=== PATIENT | female | born 1950 | race Caucasian/White ===

== ENCOUNTER 2020-01-10 14:50 | Outpatient (CLI) | payer MEDICARE, BC, SELFPAY ==
[2020-01-10 15:46] LABS: Alanine Aminotransferase 18 U/L (4-35); Albumin Level 3.9 g/dL (3.5-5.1); Alkaline Phosphatase 139 U/L (38-126); Aspartate Amino Transferase 32 U/L (14-36); Bilirubin,Total 0.8 mg/dL (0.2-1.3); Blood Urea Nitrogen 11 mg/dL (7-17); Calcium 9.1 mg/dL (8.4-10.2); Carbon Dioxide > 40 mmol/L (22-30); Chloride 86 mmol/L (98-107); Cholesterol 204 mg/dL (0-200); Estimated Glomerular Filt Rate > 60; Glucose 97 mg/dL (65-105); HDL Direct 101 mg/dL; LDL Cholesterol Direct 85 mg/dL; Potassium 3.8 mmol/L (3.4-5.0); Sodium 131 mmol/L (137-145); Triglycerides 97 mg/dL (<150)
== END 2020-01-10 14:51 | disposition home or self-care (01) ==
PROVIDERS: PCP Family Medicine; Visit Provider Family Medicine
DX: E78.00 Pure hypercholesterolemia, unspecified (principal)
CPT/HCPCS: 36415; 80053; 80061

== ENCOUNTER 2022-06-15 12:28 | Outpatient (CLI) | payer MEDICARE, BC, SELFPAY ==
[2022-06-15] VITALS (9 sets, daily range): PULSE 91–138; O2SAT 83–91
--- NOTE | 2022-06-15 13:26 | HOMEO2EVAL ---
Evaluation was performed at [facility] Home Oxygen Evaluation RC: Home Oxygen (O2) Evaluation Start: 06/15/22 13:19 Freq: Status: Active Protocol: RPE Activity Type Activity Date Activity User E-sign Co-sign Detail Recorded Client Recorded Date Recorded By Document 06/15/22 12:35 [email or web address] [email or web address] 06/15/22 13:26 DJO Document 06/15/22 12:40 [email or web address] [email or web address] 06/15/22 13:26 DJO Document 06/15/22 12:45 [email or web address] [email or web address] 06/15/22 13:26 DJO Document 06/15/22 12:50 [email or web address] [email or web address] 06/15/22 13:26 DJO Document 06/15/22 12:55 [email or web address] [email or web address] 06/15/22 13:26 DJO Document 06/15/22 13:00 [email or web address] [email or web address] 06/15/22 13:26 DJO Document 06/15/22 13:05 [email or web address] [email or web address] 06/15/22 13:26 DJO Document 06/15/22 13:10 [email or web address] [email or web address] 06/15/22 13:26 DJO Document 06/15/22 13:25 [email or web address] [email or web address] 06/15/22 13:26 DJO 06/15/22 06/15/22 06/15/22 12:35 12:40 12:45 Home O2 Evaluation [Oxygen] -Test Phase Resting Resting Resting -Oxygen Delivery Room Air Nasal Cannula Nasal Cannula -Oxygen Flow Rate (L/min) 1 2 [Pulse Oximetry] -Pulse Oximetry (90-100 %) 86 L 88 L 90 [Pulse Rate] -Pulse Rate (60-100 beats/min) 95 92 91 [Evaluation] -Activity Tolerance [Charges] -Treatment Charges O2 Evaluation - Outpatient 06/15/22 06/15/22 06/15/22 12:50 12:55 13:00 Home O2 Evaluation [Oxygen] -Test Phase Exercise Exercise Exercise -Oxygen Delivery Nasal Cannula Nasal Cannula Nasal Cannula -Oxygen Flow Rate (L/min) 2 3 4 [Pulse Oximetry] -Pulse Oximetry (90-100 %) 83 L 84 L 86 L [Pulse Rate] -Pulse Rate (60-100 beats/min) 128 H 132 H 134 H [Evaluation] -Activity Tolerance [Charges] -Treatment Charges 06/15/22 06/15/22 06/15/22 13:05 13:10 13:25 Home O2 Evaluation [Oxygen] -Test Phase Exercise Exercise Resting -Oxygen Delivery Nasal Cannula Nasal Cannula Nasal Cannula -Oxygen Flow Rate (L/min) 5 6 2 [Pulse Oximetry] -Pulse Oximetry (90-100 %) 88 L 91 90 [Pulse Rate] -Pulse Rate (60-100 beats/min) 136 H 138 H 98 [Evaluation] -Activity Tolerance Fair [Charges] -Treatment Charges
== END 2022-06-15 12:29 | disposition home or self-care (01) ==
LOC: ANHPFT 12:29
PROVIDERS: PCP Internal Medicine; Visit Provider Physician Assistant
DX: J96.11 Chronic respiratory failure with hypoxia (principal); J96.12 Chronic respiratory failure with hypercapnia
CPT/HCPCS: 94618

== ENCOUNTER 2023-08-14 09:15 | Inpatient (IN) | payer MEDICARE, BC, SELFPAY ==
[2023-08-14] VITALS (27 sets, daily range): BP systolic 91–121; BP diastolic 44–77; PULSE 73–101; RESP 17–29; TEMP 36.3–36.4; O2SAT 75–100
--- NOTE | ~2023-08-14 | XR_ITS ---
Portable chest x-ray Comparison: 08/14/2023 Clinical History: COPD Findings: Probable left apical scarring and underlying COPD pattern of the lungs are stable from dylan or exam. Cardiomediastinal silhouette is stable. Bones and soft tissues are unremarkable. Impression: COPD and presumed left apical scarring. Reviewed, dictated and finalized at [facility]. [employer] Impression: COPD and presumed left apical scarring.
--- NOTE | ~2023-08-14 | CT_ITS ---
EXAMINATION: CTA chest PE protocol DATE: 08/15/2023 13:49 INDICATION: Shortness of breath TECHNIQUE: Computed tomography angiography (CTA) of the chest was performed with 100 mL Omnipaque-350 intravenous contrast timed to evaluate the pulmonary arteries. Coronal maximum intensity projection 3D-reconstructions were created by the technologist. The dose-length product (DLP) was 153.28 mGy-cm. Automated exposure control and iterative reconstruction technique were employed. COMPARISON: 01/24/2018 FINDINGS: The pulmonary arteries are well-opacified. No pulmonary embolism is identified. There is se magdaleno emphysema. There is scarring and architectural distortion in the left lung apex, likely related to treated malignancy. No pleural effusion or pneumothorax. The heart size is normal. There is chroni c mild mediastinal lymphadenopathy. There is severe thoracic spondylosis. There are multiple chronic thoracic compression fractures. IMPRESSION: 1. No pulmonary embolus identified. 2. Severe emphysema with left upper lobe changes most consistent with treated malignancy. Reviewed, dictated and finalized at location L. CHOOL ADVISER IMPRESSION: 1. No pulmonary embolus identified. 2. Severe emphysema with left upper lobe changes most consistent with treated m alignancy.
--- NOTE | ~2023-08-14 | XR_ITS ---
EXAMINATION: XR chest 1V portable INDICATION: Altered mental status TECHNIQUE: Portable AP chest at 1041 hours COMPARISON: 08/08/2015; CT, 01/24/2018 FINDINGS: The lungs are hyperinflated. There is an airspace opacity of the left lung apex. No pleural effusion or pneumothorax identified. The cardiomediastinal silhouette is stable. IMPRESSION: 1. Airspace opacity of the left lung apex likely reflecting scarring related to a prior left upper lo be cavitary lesion. Reviewed, dictated and finalized at location B. CTOR OF ACCOUNTING IMPRESSION: 1. Airspace opacity of the left lung apex likely reflecting scarring related to a prior left upper lobe cavitary lesion.
--- NOTE | ~2023-08-14 | US_ITS ---
EXAMINATION: US venous doppler [facility] DATE: 08/15/2023 14:52 INDICATION: Respiratory abnormality, unspecified TECHNIQUE: Abdi scale images without and with compression and Doppler images of the bilateral lower e xtremity veins were obtained. COMPARISON: None FINDINGS: The right common femoral vein, profunda femoral vein, femoral vein, popliteal vein, peroneal trunk, p osterior tibial veins, and greater saphenous vein are patent. The left common femoral vein, profunda femoral vein, femoral vein, popliteal vein, peroneal trunk, po sterior tibial veins, and greater saphenous vein are patent. IMPRESSION: 1. Patent bilateral lower extremity veins. No evidence of deep venous thrombosis. Reviewed, dictated and finalized at location L. EXPORT AGENT IMPRESSION: 1. Patent bilateral lower extremity veins. No evidence of deep venous thrombosi s.
--- NOTE | ~2023-08-14 | US_ITS ---
EXAMINATION: US venous doppler E DATE: 08/15/2023 14:52 INDICATION: Respiratory failure with hypoxia and hypercapnia TECHNIQUE: Grayscale images without and with compression and Doppler images of the bilateral upper ex tremity veins were obtained. COMPARISON: None. FINDINGS: The right internal jugular vein, subclavian vein, axillary vein, brachial vein, basilic vein, cephali c vein, radial vein, and ulnar vein are patent. The left internal jugular vein, subclavian vein, axillary vein, brachial vein, basilic vein, cephalic vein, radial vein, and ulnar vein are patent. IMPRESSION: 1. Patent bilateral upper extremity veins. No evidence of venous thrombosis. Reviewed, dictated and finalized at location A. RONMENTAL SERVICES PROJECT MANAGER
--- NOTE | 2023-08-14 09:25 | ECG_ITS ---
Measurements Intervals [place] Rate: 73 P: 70 DC: 130 QRS: 74 QRSD: 96 T: 66 QT: 376 QTc: 415 Interpretive Statements SINUS RHYTHM BASELINE ARTIFACT NORMAL ECG NO PREVIOUS ECG AVAILABLE FOR COMPARISON Electronically Signed On 08-14-2023 18:27:26 NEWSPAPER DELIVERER by Axel Zee M.D.
[2023-08-14 09:41] LABS: Alveolar/Arterial O2 Gradient < 0.0 mmHg; Base Excess ABG 27.3 mEq/l (+/-2.0); Fractional Inspired Oxygen 36 %; HCO3 ABG 60.3 mEq/l (22.0-26.0); Oxygen Content ABG 14.3 %vol (16.0-22.0); Oxygen Saturation ABG 94.7 % (95.0-100.0); Oxyhemoglobin 95.3 % THb (90.0-100.0); PO2 ABG 93.7 mmHg (80.0-100.0); Total Hemoglobin 10.6 g/dL (12.0-18.0)
[2023-08-14 09:44] LABS: Device NASAL CANNULA; Modified Allen's Test Pass; PCO2 ABG 141.4 mmHg (35.0-45.0); Site Drawn RIGHT RADIAL; pH ABG 7.248 (7.350-7.450)
[2023-08-14 09:47] LABS: Basophils Percent Auto 0.2 % (0.2-1.2); Eosinophils Absolute Auto 0.1 K/mm3 (0-0.3); Eosinophils Percent Auto 2.1 % (0-4.4); Hematocrit 33.7 % (37.0-47.0); Hemoglobin 9.6 g/dL (12.0-15.0); Immature Granulocyte Absolute 0.01 K/mm3 (0.00-0.031); Immature Granulocyte Percent A 0.2 % (0-0.5); Immature Platelet Fraction Pct 6.6 % (0.9-11.2); Lymphocytes Absolute Auto 1.16 K/mm3 (0.9-3.2); Lymphocytes Percent Auto 22.6 % (18.3-44.2); Mean Corpuscular HGB Conc 28.5 g/dl (32-36); Mean Corpuscular Hemoglobin 32.1 pg (26-34); Mean Corpuscular Volume 112.7 fl (80-100); Mean Platelet Volume 10.8 fl (7.4-10.4); Monocytes Absolute Auto 0.7 K/mm3 (0.1-0.6); Monocytes Percent Auto 14.2 % (2.6-8.5); Neutrophils Absolute Auto 3.1 K/mm3 (1.3-6.7); Neutrophils Percent Auto 60.7 % (45.5-73.1); Platelet Count Result 143 k/mm3 (150-375); Red Blood Count 2.99 M/mm3 (4.2-5.4); Red Cell Distribution Width 11.9 % (11.5-14.5); White Blood Count 5.1 K/mm3 (4.5-10.0)
[2023-08-14 09:51] LABS: INR 0.9; Prothrombin Time 12.3 Seconds (11.1-14.7)
[2023-08-14 09:52] LABS: Alanine Aminotransferase 14 U/L (6-35); Albumin Level 4.1 g/dL (3.5-5.1); Alkaline Phosphatase 57 U/L (38-126); Aspartate Amino Transferase 29 U/L (14-36); Bilirubin,Total 0.6 mg/dL (0.2-1.3); Blood Urea Nitrogen 20 mg/dL (7-17); Calcium 9.2 mg/dL (8.4-10.2); Carbon Dioxide > 40 mmol/L (22-30); Chloride 82 mmol/L (98-107); Estimated CRCL calculation 59 ml/min; Estimated Glomerular Filt Rate > 60; Glucose 150 mg/dL (65-110); Partial Thromboplastin Time 32.6 SECONDS (22.3-36.8); Potassium 4.1 mmol/L (3.4-5.0); Sodium 136 mmol/L (137-145)
[2023-08-14 10:06] LABS: Anisocytosis 1+ (NORMAL); Hypochromasia 2+ (NORMAL); Platelet Estimate Adequate (Adequate); Schistocytes None Seen (NORMAL); Stomatocytes 1+ (NORMAL)
[2023-08-14] MEDS: ALBUTEROL SULFATE NEB 2.5 MG/3 ML INH INHALATION (10:17)
[2023-08-14 11:27] LABS: Alveolar/Arterial O2 Gradient 99.4 mmHg; Base Excess ABG 30.1 mEq/l (+/-2.0); Carboxyhemoglobin 1.1 % THb (0-2.0); Fractional Inspired Oxygen 45 %; HCO3 ABG 62.6 mEq/l (22.0-26.0); Methemoglobin ABG 0.2 %THb (0-1.5); Oxygen Content ABG 13.7 %vol (16.0-22.0); Oxygen Saturation ABG 90.4 % (95.0-100.0); Oxyhemoglobin 91.4 % THb (90.0-100.0); PO2 ABG 71.8 mmHg (80.0-100.0); Reduced Hemoglobin 7.3 %THb (0-5.0); Total Hemoglobin 10.6 g/dL (12.0-18.0)
[2023-08-14 11:28] LABS: Modified Allen's Test Pass; PCO2 ABG 131.6 mmHg (35.0-45.0); Site Drawn RIGHT RADIAL; pH ABG 7.295 (7.350-7.450)
[2023-08-14 11:29] LABS: Device BIPAP; Expiratory Pressure 6 cmH2O; Inspiratory Pressure 16 cmH2O
--- NOTE | 2023-08-14 11:45 | ED.GENADULT ---
HPI - General Adult General Chief complaint: Altered Mental Status Stated complaint: ams Time Seen by Provider: 08/14/23 09:45 History of Present Illness HPI narrative: Patient is a 73-year-old female who presents ER after collapse at home. Patient sleeps with a trilogy BiPAP. reports she was acting a little flaky last night before the BiPAP was put on and then she did much better. A 5:00 a.m. she had no 2 satting 98%. At 8:00 a.m. she had an O2 saturation in the mid 70s. Patient then went to the bathroom and became unresponsive. EMS arrived and bagged her and then patient woke up. She is awake alert and oriented at this time. She is receiving supplemental oxygen by nasal cannula. She denies any runny nose or sore throat or productive cough. reports she has not been hospitalized since 2016. Related Data Home Medications Medication Instructions Recorded Confirmed tiotropium bromide 2.5 2 inhalation inhalation QAM 09/30/19 08/14/23 mcg/actuation mist for inhalation (Spiriva Respimat) diltiazem HCl 180 mg capsule,24 60 mg PO TID 04/10/20 08/14/23 hr,extended release escitalopram oxalate 10 mg tablet 10 mg PO DAILY 04/10/20 08/14/23 furosemide 20 mg tablet 20 mg PO QAM 04/10/20 08/14/23 spironolactone 25 mg tablet 25 mg PO DAILY 04/10/20 08/14/23 Klonopin PO BID PRN Anxiety 08/14/23 alendronate 70 mg tablet 70 mg PO 08/14/23 budesonide 0.25 mg/2 mL suspension 0.25 mg BID 08/14/23 08/14/23 for nebulization Allergies Allergy/AdvReac Type Severity Reaction Status Date / Time No Known Allergies Allergy Unverified 08/14/23 09:31 Review of Systems Review of Systems: All systems reviewed & are unremarkable except as noted in HPI and below Constitutional: Constitutional: Reports no additional constitutional complaints ENT: Reports system reviewed and no additional complaints, except as documented Cardiovascular: Cardiovascular: Reports no additional cardiovascular complaints Respiratory: Respiratory: Denies cough, Reports dyspnea and Denies wheezing Gastrointestinal: Gastrointestinal: Reports no additional gastrointestinal complaints Genitourinary: Genitourinary: Reports no additional female genitourinary complaints Neurologic: Denies syncope, Denies focal weakness and Denies numbness PMFSH Past Medical History Medical History (Updated 08/14/23 @ 19:04 by German Barboza MD) Anxiety COPD (chronic obstructive pulmonary disease) Multiple nodules of lung Pulmonary hypertension Respiratory failure Family History Family History Sibling Family history of malignant neoplasm Carcinoma of colon Social History Social History Smoking packs per day: 2 Smoking cigarettes per day: 40.0 Years smoked: 30 Smoking pack-years: 60.00 Smoking status: Former smoker Tobacco type: cigarettes Smoking end date: 04/11/12 Alcohol intake: never Substance use: never Do You Feel Safe in your Home?: Yes Lack of Transportation: No Lack of Food: Never True Current Housing: I Have Housing Concerned About Future Housing: No Difficulty Paying Gas/Electric Bills: No Difficulty Paying for Meds: No Currently Unemployed: No Education: High School Diploma/GED Difficulty w/ Childcare or Family Care: No Spiritual care concerns: No Exam Narrative: general: Chronically ill-appearing, well-nourished, and in no acute distress. HEAD: Normocephalic, atraumatic. ENT: Mucous membranes moist. NECK: Supple. CHEST: diminished with faint wheezing. mild respiratory distress. HEART: Regular rate and rhythm. Normal peripheral pulses. ABDOMEN: Soft, nontender, nondistended. EXTREMITIES: Normal range of motion. No edema. SKIN: Warm, dry, no rash. NEURO: Alert and oriented x3. PSYCH: Normal mood and affect. Course Course Emergency Course:
--- NOTE | 2023-08-14 15:07 | ADMGEN ---
This patient, Betsy Villa, was admitted to IMU Room 203-01. Patient/family oriented to hospital policies and general routines including ID bracelet, bed and alarms, visiting hours, pain management, procedures, bathroom and other care routines, personal items, smoking policy, room service/diet, and visiting hours. Information on how to activate the Rapid Response Team has been discussed. Patient/Family are encouraged to report perceived risks to care and to ask questions if they do not understand what they are told or what they should do.
[2023-08-14 15:24] LABS: Alveolar/Arterial O2 Gradient 115.4 mmHg; Carboxyhemoglobin 0.3 % THb (0-2.0); Fractional Inspired Oxygen 50 %; HCO3 ABG 60.3 mEq/l (22.0-26.0); Methemoglobin ABG 0.2 %THb (0-1.5); Oxygen Content ABG 14.5 %vol (16.0-22.0); Oxygen Saturation ABG 95.7 % (95.0-100.0); Oxyhemoglobin 95.7 % THb (90.0-100.0); PO2 ABG 97.2 mmHg (80.0-100.0); PO2 FiO2 Ratio Arterial Blood 1.94 %; Reduced Hemoglobin 3.8 %THb (0-5.0); Total Hemoglobin 10.7 g/dL (12.0-18.0)
[2023-08-14 15:25] LABS: Device BIPAP; Modified Allen's Test Pass; PCO2 ABG 127.9 mmHg (35.0-45.0); Site Drawn LEFT RADIAL; pH ABG 7.291 (7.350-7.450)
[2023-08-14 15:26] LABS: Expiratory Pressure 6 cmH2O; Inspiratory Pressure 16 cmH2O
--- NOTE | 2023-08-14 15:28 | PM.IMHP ---
H&P: HPI History of Present Illness Date/Time: 08/14/23 15:28 Chief Complaint: Syncope Narrative: Several years female past medical history of COPD, anxiety, pulmonary hypertension chronic respiratory failure on supplemental oxygen and trilogy at night presented to the ER after syncope. Hospital was on [place] noted the patient woke up this morning with the intraseptal sounds present, and when she went to use the bathroom she passed out on the EMS was called. Noted that she passed out at about 8:30 a.m.. Patient denies any fever, noted a mild cough but no chest pain no vomiting no abdominal pain no diarrhea no dysuria no focal symptoms. She uses 2 L of oxygen at baseline and trilogy at night. ER evaluation notable for compression is sewn 0.6, pulse rate 84, respiratory 21, blood pressure 109/55, chest x-ray no acute findings. Labs notable for hemoglobin 9.6, MCV 1 1 2, ABG was 7.29/131/71/62, patient was placed on BiPAP and DuoNeb treatment prior to admission. Review of Systems Review of Systems: All other systems reviewed and negative except as noted in HPI above [facility] Past Medical History Medical History (Updated 08/14/23 @ 15:47 by Jonathan Simmons MD) Anxiety COPD (chronic obstructive pulmonary disease) Multiple nodules of lung Pulmonary hypertension Respiratory failure Family History Family History Sibling Family history of malignant neoplasm Carcinoma of colon Social History Social History Smoking packs per day: 2 Smoking cigarettes per day: 40.0 Years smoked: 30 Smoking pack-years: 60.00 Smoking status: Former smoker Tobacco type: cigarettes Smoking end date: 04/11/12 Alcohol intake: never Substance use: never Do You Feel Safe in your Home?: Yes Lack of Transportation: No Lack of Food: Never True Current Housing: I Have Housing Concerned About Future Housing: No Difficulty Paying Gas/Electric Bills: No Difficulty Paying for Meds: No Currently Unemployed: No Education: High School Diploma/GED Difficulty w/ Childcare or Family Care: No Spiritual care concerns: No Meds Home Medications and Allergies Home Medications Medication Instructions Recorded Confirmed Type tiotropium bromide 2.5 2 inhalation inhalation QAM 09/30/19 08/14/23 History mcg/actuation mist for inhalation (Spiriva Respimat) diltiazem HCl 180 mg capsule,24 60 mg PO TID 04/10/20 08/14/23 History hr,extended release escitalopram oxalate 10 mg tablet 10 mg PO DAILY 04/10/20 08/14/23 History furosemide 20 mg tablet 20 mg PO QAM 04/10/20 08/14/23 History spironolactone 25 mg tablet 25 mg PO DAILY 04/10/20 08/14/23 History arformoterol 15 mcg/2 mL solution See Rx Instructions .Route 06/19/23 08/14/23 Rx for nebulization .COMPLEX #120 mL Klonopin PO BID PRN Anxiety 08/14/23 History alendronate 70 mg tablet 70 mg PO 08/14/23 History budesonide 0.25 mg/2 mL suspension 0.25 mg BID 08/14/23 08/14/23 History for nebulization Allergies Allergy/AdvReac Type Severity Reaction Status Date / Time No Known Allergies Allergy Unverified 08/14/23 09:31 Vital Signs Vital Signs - 24 hr 08/14/23 09:15 08/14/23 09:25 08/14/23 09:25 Temperature 97.6 F Pulse Rate 77 75 Respiratory Rate 17 Blood Pressure 116/53 L Pulse Oximetry 75 L 100 Oxygen Delivery Nasal Cannula Non-Rebreather Mask Oxygen Flow Rate 4 4 Fraction of Inspired Oxygen 08/14/23 09:31 08/14/23 10:16 08/14/23 10:17 Temperature Pulse Rate 74 73 78 Respiratory Rate 23 H 29 H 24 H Blood Pressure 114/61 105/54 L Pulse Oximetry 98 96 Oxygen Delivery Oxygen Flow Rate Fraction of Inspired Oxygen 08/14/23 10:00 08/14/23 11:41 08/14/23 11:01 Temperature Pulse Rate 78 80 77 Respiratory Rate 24 H 26 H 29 H Blood Pressure 103/45 L Pulse Oximetry 95 96 97
[2023-08-14] MEDS: IPRATROPIUM 0.5 MG/ALBUTEROL SULFATE 2.5 MG AMPUL.NEB 3 ML INHALATION ×2 (15:30→21:15)
--- NOTE | 2023-08-14 16:37 | PM.CNPUL ---
Assessment and Plan Assessment and plan (1) COPD exacerbation: Code(s): J44.1 - Chronic obstructive pulmonary disease with (acute) exacerbation Status: Acute Assessment and Plan: Gold grade 4 group E COPD Patient followed in the Pulmonary Clinic in last seen on 05/11/2023 patient with 84 pack year history tobacco use, quit 04/11/2012, FEV1 22% on 07/31/2015, ? DLCO remained moderately decreased when adjusted for alveolar volume, lung volumes were not performed, with severe panlobular emphysema on CT scan.? She was using 3 L with rest, 6 with exertion. She was wearing a noninvasive trilogy every night with sleep since 2017. AVAPS EA mode with respiratory rate is 20, tidal volume 420, EPAP minimum 5, EPAP maximum 15, pressure support minimum 8, pressure support maximum 15, maximum pressure 30, rise time 3, ramp length 20. She wears 5 L NC under the mask. She was using Brovana nebs b.i.d., Spiriva Handy haler q.day and levalbuterol once daily in the morning.? Budesonide was added back 06/29/2021.? Currently the patient presents with acute on chronic hypoxemic and hypercarbic respiratory failure with no evidence of an acute change in her shortness of breath, sputum volume, sputum color or her symptoms. She had acute deterioration when she ambulated to the bathroom and had hypoxemia leading to a syncopal episode which responded once EMS arrived and gave her Ambu bag ventilation. Currently the patient states she is breathing 90% back to her normal and has no wheezing. Plan: Agree with Solu-Medrol 40 Q 8 for now. Continue DuoNebs q.4 hours. I will discontinue the trilogy inhaler as she is on maximal doses of beta agonists, muscarinic antagonists and steroids with the Solu-Medrol and DuoNebs. She has no evidence of a bacterial infection and I agree with no antibiotics. I will send a COVID, RSV and influenza RT PCR study as well as a swab for respiratory pathogen panel to [facility]. Patient had desaturations turning over in bed and I will not attempt to obtain a CT scan of the chest currently. I will obtain a D-dimer in the morning. Echocardiogram has been ordered. I will check a chest x-ray in the morning. I spoke to the regarding patient's resuscitation wishes and the patient has discussed this with the and the patient would wish for CPR and defibrillation but would not wish for intubation. I discussed this level of care with the hospitalist who will initiate do not intubate orders. Discussed with Dr. Simmons, will follow with you. (2) Respiratory failure with hypoxia and hypercapnia: Code(s): J96.91 - Respiratory failure, unspecified with hypoxia; J96.92 - Respiratory failure, unspecified with hypercapnia Status: Acute Assessment and Plan: Patient has chronic hypercarbic and hypoxemic respiratory failure from her COPD and is currently on 3 L nasal cannula at rest and 5 L bleed in at night on her home noninvasive ventilator with AVAPS AE mode through [employer]. My last download from 01/25/2023 through 04/24/2023 through [employer].? Patient is on AVAPS AE mode.? Breath rate 20, tidal volume 420, minimal EPAP 5, maximal EPAP 15, minimal pressure support 8, maximal pressure support 15, inspiratory time 2nd, rise time 3, ramp length 20.? % of days with usage greater than or equal to 4 hours is 100%.? Average usage on days used is 9 hours and 34 minutes.? Weekly average ranges for respiratory rate is 20 to 21.? Tidal volume 413 to 428.? Minute ventilation 8.5-9.22.? EPAP pressure 5.6-6.3.? IPAP average 19.1 to 19.5.? Average leak 45-59.??I interpret this download as excellent compliance, adequate pressures and high leak. Patient's last blood gas on BiPAP rate of 20 pressures 16/6 and 50% had 7.29/128/97. The patient was having difficulty with BiPAP and I switched her to an AVAPS mode rate of 20, tidal volume 420, EPAP 6, minimal inspiratory pressure 7, maximal inspiratory pressure 25, inspiratory time 1.2 and rise of 5 which
[2023-08-14] MEDS: dilTIAZem HCL 60 MG TABLET PO (17:01)
[2023-08-14] MEDS: methylPREDNISolone SOD SUCC 40 MG VIAL IV PUSH ×2 (17:01→22:07)
[2023-08-14 18:31] LABS: Influenza A QL RT-PCR Negative (Negative); Influenza B QL RT-PCR Negative (Negative); RSV RNA, RT-PCR Negative (Negative); SARS-CoV-2 RNA PCR Negative (Negative)
[2023-08-14 19:12] LABS: Folic Acid > 20.0 ng/mL (2.76->20)
[2023-08-15] VITALS (32 sets, daily range): BP systolic 100–120; BP diastolic 44–74; PULSE 71–138; RESP 21–26; TEMP 36.3–36.6; O2SAT 91–99
--- NOTE | 2023-08-15 | ECHO_ITS ---
Patient Info Name: Betsy Villa Age: 73 years : 1950 Gender: Female Ht: 64 in Wt: 117 lbs BSA: 1.55 m2 HR: 81 bpm BP: 120 / 56 mmHg Heart Rhythm: Sinus Rhythm Technical Quality: Fair Exam Date: 08/15/2023 3:45 PM Exam Location: Echo Lab Patient Status: Inpatient Admit Date: 08/14/2023 Staff Ordering Physician: Jonathan Simmons MD [employer] Instructor: Frances Garibay RDCS Attending Provider: Kamar Cerna MD Exam Type: CA echo dop color flow w con Study Info Indications R55 - Syncope and collapse Complete two-dimensional, color flow and Doppler transthoracic echocardiogram is performed with contrast to opacify the left ventricle and to improve the deliniation of the left ventricle endocardial borders. Contrast/Agitated Saline Contrast/Ag. Saline: Definity Amount: 2.00 ml Administered By: Frances Garibay RDCS Existing IV Access: Yes IV Access Condition: patent with no signs of infiltration Summary 1. Left ventricular chamber dimension is normal. 2. Left ventricular systolic function is normal, estimated at 65-70%. 3. The left ventricular diastolic function is grade I diastolic dysfunction. 4. Right ventricular systolic function is normal. 5. No significant valvular disease. Left Ventricle Left ventricular chamber dimension is normal. Left ventricular systolic function is normal, estimated at 65-70%. There is no increased left ventricular wall thickness. The left ventricular diastolic function is grade I diastolic dysfunction. Right Ventricle Right ventricular chamber dimension is normal. Right ventricular systolic function is normal. Left Atria Left atrial chamber dimension is normal. Right Atria Right atrial chamber dimension is normal. Atrial Septum Intact interatrial septum visualized by color flow imaging. Aortic Valve The aortic valve is trileaflet. There is mild aortic valve sclerosis. There is no aortic valve stenosis. There is no aortic valve regurgitation. Pulmonic Valve The pulmonic valve is not well visualized. Mitral Valve There is trace mitral valve regurgitation. The mitral valve annulus is mildly calcified. Tricuspid Valve There is trace tricuspid valve regurgitation. Pericardium/Pleural There is no pericardial effusion. Inferior Vena Cava Normal inferior vena cava with <50% collapse upon inspiration consistent with elevated right atrial pressure, 8 mmHg. Aorta The aortic root size at the sinus of Valsalva is normal. Left Ventricular Outflow Tract Name Value Normal LVOT 2D LVOT Diameter 2.02 cm LVOT Doppler LVOT Peak Gradient 4 mmHg LVOT Mean Gradient 2 mmHg LVOT VTI 19.22 cm LVOT VTI/AV VTI Ratio 0.74 LVOT Stroke Volume 61.41 ml LVOT CO 4.85 l/min LVOT CI 3.14 L/min/m2 Pulmonic Valve Name Value Normal RVOT
[2023-08-15] MEDS: IPRATROPIUM 0.5 MG/ALBUTEROL SULFATE 2.5 MG AMPUL.NEB 3 ML INHALATION ×6 (00:25→20:06)
[2023-08-15 05:33] LABS: Hematocrit 32.9 % (37.0-47.0); Hemoglobin 9.8 g/dL (12.0-15.0); Immature Granulocyte Absolute 0.02 K/mm3 (0.00-0.031); Immature Granulocyte Percent A 0.3 % (0-0.5); Immature Platelet Fraction Pct 8.1 % (0.9-11.2); Lymphocytes Absolute Auto 0.17 K/mm3 (0.9-3.2); Lymphocytes Percent Auto 2.8 % (18.3-44.2); Mean Corpuscular HGB Conc 29.8 g/dl (32-36); Mean Corpuscular Hemoglobin 32.6 pg (26-34); Mean Corpuscular Volume 109.3 fl (80-100); Mean Platelet Volume 10.9 fl (7.4-10.4); Monocytes Percent Auto 0.5 % (2.6-8.5); Neutrophils Absolute Auto 5.8 K/mm3 (1.3-6.7); Neutrophils Percent Auto 96.4 % (45.5-73.1); Platelet Count Result 152 k/mm3 (150-375); Red Blood Count 3.01 M/mm3 (4.2-5.4); Red Cell Distribution Width 11.9 % (11.5-14.5); White Blood Count 6.1 K/mm3 (4.5-10.0)
[2023-08-15] MEDS: methylPREDNISolone SOD SUCC 40 MG VIAL IV PUSH (05:34)
[2023-08-15 05:47] LABS: Lactic Acid Reflex 1.6 mmol/L (0.7-2.0)
[2023-08-15 05:49] LABS: Alveolar/Arterial O2 Gradient 123.6 mmHg; Fractional Inspired Oxygen 45 %; HCO3 ABG 52.4 mEq/l (22.0-26.0); Oxygen Content ABG 14.3 %vol (16.0-22.0); Oxygen Saturation ABG 94.1 % (95.0-100.0); Oxyhemoglobin 94.3 % THb (90.0-100.0); PO2 ABG 81.1 mmHg (80.0-100.0); Total Hemoglobin 10.7 g/dL (12.0-18.0); pH ABG 7.328 (7.350-7.450)
[2023-08-15 05:51] LABS: PCO2 ABG 102.1 mmHg (35.0-45.0); Site Drawn RIGHT BRACHIAL
[2023-08-15 05:52] LABS: Device NON-INVASIVE VENT; Non-Invasive Vent Rate 20 /MIN
[2023-08-15 05:53] LABS: Non-Invasive Expiratory Pressure 6 CMH2O
[2023-08-15 05:58] LABS: Alanine Aminotransferase 15 U/L (6-35); Albumin Level 4.3 g/dL (3.5-5.1); Alkaline Phosphatase 72 U/L (38-126); Aspartate Amino Transferase 28 U/L (14-36); Bilirubin,Total 0.8 mg/dL (0.2-1.3); Blood Urea Nitrogen 19 mg/dL (7-17); Calcium 9.4 mg/dL (8.4-10.2); Carbon Dioxide > 40 mmol/L (22-30); Chloride 83 mmol/L (98-107); Estimated CRCL calculation 55 ml/min; Estimated Glomerular Filt Rate > 60; Glucose 174 mg/dL (65-110); Potassium 4.5 mmol/L (3.4-5.0); Sodium 136 mmol/L (137-145)
[2023-08-15 06:06] LABS: Hypochromasia 1+ (NORMAL); Platelet Estimate Adequate (Adequate); Schistocytes None Seen (NORMAL)
[2023-08-15 06:07] LABS: Stomatocytes 2+ (NORMAL)
[2023-08-15 06:12] LABS: D Dimer 0.66 ug/mL (<0.48)
[2023-08-15 08:08] LABS: NT Pro B Type Natriuretic Pept 195 pg/mL (19.9-100)
[2023-08-15] MEDS: ESCITALOPRAM OXALATE 10 MG TABLET PO (10:12)
[2023-08-15] MEDS: FUROSEMIDE 20 MG TABLET PO (10:12)
[2023-08-15] MEDS: dilTIAZem HCL 60 MG TABLET PO ×3 (10:12→17:25)
[2023-08-15] MEDS: ENOXAPARIN 40 MG/0.4 ML SYRINGE SUB-Q (10:12)
[2023-08-15] MEDS: SPIRONOLACTONE 25 MG TABLET PO (10:12)
--- NOTE | 2023-08-15 10:52 | PM.PNPUL ---
Progress Note: A&P Assessment and Plan (1) COPD exacerbation: Code(s): J44.1 - Chronic obstructive pulmonary disease with (acute) exacerbation Status: Acute Assessment and Plan: Gold grade 4 group E COPD Patient followed in the Pulmonary Clinic in last seen on 05/11/2023 patient with 84 pack year history tobacco use, quit 04/11/2012, FEV1 22% on 07/31/2015, ? DLCO remained moderately decreased when adjusted for alveolar volume, lung volumes were not performed, with severe panlobular emphysema on CT scan.? She was using 3 L with rest, 6 with exertion. She was wearing a noninvasive trilogy every night with sleep since 2017. AVAPS EA mode with respiratory rate is 20, tidal volume 420, EPAP minimum 5, EPAP maximum 15, pressure support minimum 8, pressure support maximum 15, maximum pressure 30, rise time 3, ramp length 20. She wears 5 L NC under the mask. She was using Brovana nebs b.i.d., Spiriva Handy haler q.day and levalbuterol once daily in the morning.? Budesonide was added back 06/29/2021.? Currently the patient presents with acute on chronic hypoxemic and hypercarbic respiratory failure with no evidence of an acute change in her shortness of breath, sputum volume, sputum color or her symptoms. She had acute deterioration when she ambulated to the bathroom and had hypoxemia leading to a syncopal episode which responded once EMS arrived and gave her Ambu bag ventilation. Currently the patient states she is breathing 90% back to her normal and has no wheezing. Plan: Agree with Solu-Medrol 40 Q 8 for now. Continue DuoNebs q.4 hours. I will discontinue the trilogy inhaler as she is on maximal doses of beta agonists, muscarinic antagonists and steroids with the Solu-Medrol and DuoNebs. She has no evidence of a bacterial infection and I agree with no antibiotics. I will send a COVID, RSV and influenza RT PCR study as well as a swab for respiratory pathogen panel to [facility]. Patient had desaturations turning over in bed and I will not attempt to obtain a CT scan of the chest currently. I will obtain a D-dimer in the morning. Echocardiogram has been ordered. I will check a chest x-ray in the morning. I spoke to the regarding patient's resuscitation wishes and the patient has discussed this with the and the patient would wish for CPR and defibrillation but would not wish for intubation. I discussed this level of care with the hospitalist who will initiate do not intubate orders. 08/15/23: She denied fever, chills, rigors. White blood cell count 6.1, creatinine 0.6, D-dimer 0.66 positive. Chest x-ray today shows hyperinflation with no pleural effusions. Left upper lobe scar. No change from 08/14/2023. Plan: Patient is improved. I will change her Solu-Medrol to prednisone 40 mg a day. I will continue DuoNebs q.4 hours. Noninvasive ventilation p.r.n. during the day. Nasal cannula with goal saturation 90-94%. I will perform CT angiogram of the chest to exclude PE, echocardiogram to assess LV function, RV function, valve function and pulmonary pressures. Upper and lower extremity Dopplers as her D dimer is positive. Discussed with Dr. Newell, will follow with you. (2) Respiratory failure with hypoxia and hypercapnia: Code(s): J96.91 - Respiratory failure, unspecified with hypoxia; J96.92 - Respiratory failure, unspecified with hypercapnia Status: Acute Assessment and Plan: Patient has chronic hypercarbic and hypoxemic respiratory failure from her COPD and is currently on 3 L nasal cannula at rest and 5 L bleed in at night on her home noninvasive ventilator with AVAPS AE mode through [employer]. My last download from 01/25/2023 through 04/24/2023 through [employer].? Patient is on AVAPS AE mode.? Breath rate 20, tidal volume 420, minimal EPAP 5, maximal EPAP 15, minimal pressure support 8, maximal pressure support 15, inspiratory time 2nd, rise time 3, ramp length 20.? % of days with usage greater than or equal to
[2023-08-15] MEDS: predniSONE 20 MG TABLET 40 MG PO (12:10)
[2023-08-15] MEDS: PERFLUTREN LIPID MICROSPHERES 1.5 ML VIAL DILUTED TO 10 ML TOTAL VOLUME IV PUSH (15:30)
--- NOTE | 2023-08-15 16:58 | IVDEFINITY ---
Prior to administration of IV Definity the patient was educated on the risks and benefits of the imaging enhancing agent including potential adverse side effects. The patient verbalized understanding. Allergies were verified. No exclusion criteria were identified and at least one of the following inclusion criteria were met: 1) physician request, 2) patient technically difficult to image (per the [place] [employer] guidelines of two or more segments not discernable within the apical view), or 3) questionable left ventricular function. ?
--- NOTE | 2023-08-15 17:07 | PM.IMPN ---
Progress Note: A&P Assessment and Plan (1) COPD exacerbation: Code(s): J44.1 - Chronic obstructive pulmonary disease with (acute) exacerbation Status: Acute Assessment and Plan: Patient presents with SOB and found to have acute respiratory failure. ABG showed acute on chronic respiratory acidosis with metabolic alkalosis. PCO2 141. CXR showing airspace opacity left lung apex CTA chest today no PE but showed severe emphysema with left upper lobe changes c/w treated malignancy. Treated with BIPAP, IV steroids, and bronchodilators Repeat ABG showing improvement Pulm consulted and appreciate their input (2) Acute and chronic respiratory failure with hypercapnia: Code(s): J96.22 - Acute and chronic respiratory failure with hypercapnia Status: Acute Assessment and Plan: Patient with acute on chronic resp failure. Most likely COPD exacerbation. CTA chest shownig no PE and only chronic findings so PNA less likely. Dopplers UE and LE negative for DVT BNP 195. Echo pending ABG better at 7.33/102/81. Patient at end stage resp failure. Discussed with pulmonary who felt hospice discussion was reasonable. Spoke with and he was receptive to hospice. Patient now DNR. He will speak with family about moving forward The patieint is unaware of this discussion at this time (3) Macrocytic anemia: Code(s): D53.9 - Nutritional anemia, unspecified Status: Acute Assessment and Plan: Hgb in the 9 range and stable. No baseline to compare. Macrocytic with MCV 112 B12/folate normal Monitor HH. Transfuse as needed (4) Syncope: Code(s): R55 - Syncope and collapse Status: Acute Assessment and Plan: Patient with syncopal episode likely related to respiratory failure given the severity of her ABG CTA chest negative for PE. Echo pending. PT/OT ordered monitor on tele (5) Multiple nodules of lung: Code(s): R91.8 - Other nonspecific abnormal finding of lung field Status: Acute Assessment and Plan: CTA chest showing AMINATA scarring but no mention of pulmonary nodules. Plan Code status - tele DVT prophylaxis - Lovenox Subjective Date/time seen: 08/15/23 17:07 Interval history: 73yo female with GOLD grade 4 group E COPD, anxiety, chronic respiratory failure and pulm HTN here for shortness of breath. Wore Bipap last night. Slept off and on. Feeling better. No CP and SOb improved. No n/v. Tolerating oral intake. Exam Narrative: AF 97.5 108/44 79 26 96% 3L Gen - this elderly female in NARD sitting up in bed Chest - distant BS anteriorly and in the flanks. CV - RRR S1/S2. Tele showing no significant dysrhythmias. Abd - Soft, NT/ND, Positive BS Ext - No pedal edema Psych - Nml mood and affect Skin - Warm and dry Objective Data Vital Signs Vital Signs: Vital Signs - 24 hr 08/14/23 17:56 08/14/23 18:00 08/14/23 20:00 Temperature 97.3 F L Pulse Rate 98 92 88 Respiratory Rate 24 H 23 H Blood Pressure 91/56 L Pulse Oximetry 94 97 Oxygen Delivery BiPAP Oxygen Flow Rate Fraction of Inspired Oxygen 08/14/23 21:15 08/14/23 21:15 08/14/23 21:30 Temperature Pulse Rate 95 95 95 Respiratory Rate 22 H 23 H 23 H Blood Pressure Pulse Oximetry 97 Oxygen Delivery BiPAP Oxygen Flow Rate Fraction of Inspired Oxygen 08/14/23 20:00 08/14/23 20:00 08/14/23 22:00 Temperature Pulse Rate 85 74 Respiratory Rate Blood Pressure Pulse Oximetry 98 Oxygen Delivery BiPAP Oxygen Flow Rate Fraction of Inspired Oxygen 45 08/14/23 23:47 08/15/23 00:00 08/15/23 00:00 Temperature 97.6 F Pulse Rate 99 104 H Respiratory Rate 23 H Blood Pressure 117/77 Pulse Oximetry 96 96 Oxygen Delivery BiPAP Oxygen Flow Rate Fraction of Inspired Oxygen 45 08/15/23 00:25 08/15/23 00:25 08/15/23 02:00 Temperature Pulse Rate 89 89 99 Respiratory Rate 2
[2023-08-15] MEDS: BUDESONIDE RESPULE NEB 0.5 MG/2 ML AMP INHALATION (20:06)
--- NOTE | 2023-08-15 20:30 | PC.NURSE ---
RT attempted to place pt on home Trilogy settings for apnea link. Pt desat to the 50s. Pt is currently on 15L HFNC satting 85%. Discussed with RT to place pt on bipap with current AVAPS settings and to forgo apnea link based on pt's intolerance.
[2023-08-16] VITALS (33 sets, daily range): BP systolic 101–128; BP diastolic 48–78; PULSE 76–103; RESP 18–26; TEMP 36.2–36.6; O2SAT 90–100
[2023-08-16] MEDS: IPRATROPIUM 0.5 MG/ALBUTEROL SULFATE 2.5 MG AMPUL.NEB 3 ML INHALATION ×6 (00:37→20:20)
[2023-08-16 04:43] LABS: Basophils Percent Auto 0.1 % (0.2-1.2); Hematocrit 31.6 % (37.0-47.0); Hemoglobin 9.4 g/dL (12.0-15.0); Immature Granulocyte Absolute 0.05 K/mm3 (0.00-0.031); Immature Granulocyte Percent A 0.5 % (0-0.5); Lymphocytes Absolute Auto 0.27 K/mm3 (0.9-3.2); Lymphocytes Percent Auto 2.8 % (18.3-44.2); Mean Corpuscular HGB Conc 29.7 g/dl (32-36); Mean Corpuscular Hemoglobin 32.9 pg (26-34); Mean Corpuscular Volume 110.5 fl (80-100); Mean Platelet Volume 10.7 fl (7.4-10.4); Monocytes Percent Auto 10.9 % (2.6-8.5); Neutrophils Absolute Auto 8.1 K/mm3 (1.3-6.7); Neutrophils Percent Auto 85.7 % (45.5-73.1); Platelet Count Result 153 k/mm3 (150-375); Red Blood Count 2.86 M/mm3 (4.2-5.4); White Blood Count 9.5 K/mm3 (4.5-10.0)
--- NOTE | 2023-08-16 04:53 | PC.NURSE ---
Dr. Reyna called IMU to check on pt's status overnight. Explained that pt was unable to tolerate home trilogy and was placed on AVAPS with same settings as yesterday. ABG has not been obtained yet this morning. Dr. Reyna states not to call critical lab results, that he will review them this morning. Discussed with RT: while pt was on home Trilogy, RT used a 5L bleed in. Pt unable to tolerate. Bleed in was titrated up to 15L. Pt was still unable to maintain her sats. At that time, she was placed on AVAPS mode per hospital bipap system.
[2023-08-16 05:00] LABS: Alanine Aminotransferase 17 U/L (6-35); Albumin Level 4.2 g/dL (3.5-5.1); Alkaline Phosphatase 61 U/L (38-126); Aspartate Amino Transferase 35 U/L (14-36); Bilirubin,Total 0.6 mg/dL (0.2-1.3); Blood Urea Nitrogen 25 mg/dL (7-17); Calcium 9.4 mg/dL (8.4-10.2); Carbon Dioxide > 40 mmol/L (22-30); Chloride 82 mmol/L (98-107); Estimated CRCL calculation 48 ml/min; Estimated Glomerular Filt Rate > 60; Glucose 121 mg/dL (65-110); Potassium 4.2 mmol/L (3.4-5.0); Sodium 136 mmol/L (137-145)
[2023-08-16 05:27] LABS: Alveolar/Arterial O2 Gradient 129.7 mmHg; Base Excess ABG 21.4 mEq/l (+/-2.0); Fractional Inspired Oxygen 40 %; HCO3 ABG 49.4 mEq/l (22.0-26.0); Oxygen Content ABG 13.5 %vol (16.0-22.0); Oxygen Saturation ABG 91.8 % (95.0-100.0); Oxyhemoglobin 91.7 % THb (90.0-100.0); PO2 FiO2 Ratio Arterial Blood 1.63 %; Total Hemoglobin 10.4 g/dL (12.0-18.0); pH ABG 7.416 (7.350-7.450)
[2023-08-16 05:29] LABS: Device BIPAP; Modified Allen's Test Pass; PCO2 ABG 78.7 mmHg (35.0-45.0); Site Drawn RIGHT RADIAL
[2023-08-16 05:30] LABS: Expiratory Pressure 6 cmH2O
[2023-08-16 05:45] LABS: Platelet Estimate Adequate (Adequate); Schistocytes None Seen (NORMAL); Stomatocytes 2+ (NORMAL)
[2023-08-16 05:46] LABS: Anisocytosis 1+ (NORMAL); Hypochromasia 2+ (NORMAL)
[2023-08-16] MEDS: BUDESONIDE RESPULE NEB 0.5 MG/2 ML AMP INHALATION ×2 (07:28→20:20)
--- NOTE | 2023-08-16 08:55 | PCOTNOTE ---
The patient treatment was not able to be completed. RN and MD in the room completing testing. RN reported not appropriate at this time. Will plan to continue treatment per plan of care.
[2023-08-16] MEDS: ESCITALOPRAM OXALATE 10 MG TABLET PO (09:33)
[2023-08-16] MEDS: predniSONE 20 MG TABLET 40 MG PO (09:33)
[2023-08-16] MEDS: FUROSEMIDE 20 MG TABLET PO (09:33)
[2023-08-16] MEDS: dilTIAZem HCL 60 MG TABLET PO ×3 (09:34→21:28)
[2023-08-16] MEDS: SPIRONOLACTONE 25 MG TABLET PO (09:34)
[2023-08-16] MEDS: ENOXAPARIN 40 MG/0.4 ML SYRINGE SUB-Q (09:35)
--- NOTE | 2023-08-16 10:04 | PM.PNPUL ---
Progress Note: A&P Assessment and Plan (1) COPD exacerbation: Code(s): J44.1 - Chronic obstructive pulmonary disease with (acute) exacerbation Status: Acute Assessment and Plan: Gold grade 4 group E COPD Patient followed in the Pulmonary Clinic in last seen on 05/11/2023 patient with 84 pack year history tobacco use, quit 04/11/2012, FEV1 22% on 07/31/2015, ? DLCO remained moderately decreased when adjusted for alveolar volume, lung volumes were not performed, with severe panlobular emphysema on CT scan.? She was using 3 L with rest, 6 with exertion. She was wearing a noninvasive trilogy every night with sleep since 2017. AVAPS EA mode with respiratory rate is 20, tidal volume 420, EPAP minimum 5, EPAP maximum 15, pressure support minimum 8, pressure support maximum 15, maximum pressure 30, rise time 3, ramp length 20. She wears 5 L NC under the mask. She was using Brovana nebs b.i.d., Spiriva Handy haler q.day and levalbuterol once daily in the morning.? Budesonide was added back 06/29/2021.? Currently the patient presents with acute on chronic hypoxemic and hypercarbic respiratory failure with no evidence of an acute change in her shortness of breath, sputum volume, sputum color or her symptoms. She had acute deterioration when she ambulated to the bathroom and had hypoxemia leading to a syncopal episode which responded once EMS arrived and gave her Ambu bag ventilation. Currently the patient states she is breathing 90% back to her normal and has no wheezing. Plan: Agree with Solu-Medrol 40 Q 8 for now. Continue DuoNebs q.4 hours. I will discontinue the trilogy inhaler as she is on maximal doses of beta agonists, muscarinic antagonists and steroids with the Solu-Medrol and DuoNebs. She has no evidence of a bacterial infection and I agree with no antibiotics. I will send a COVID, RSV and influenza RT PCR study as well as a swab for respiratory pathogen panel to [facility]. Patient had desaturations turning over in bed and I will not attempt to obtain a CT scan of the chest currently. I will obtain a D-dimer in the morning. Echocardiogram has been ordered. I will check a chest x-ray in the morning. I spoke to the regarding patient's resuscitation wishes and the patient has discussed this with the and the patient would wish for CPR and defibrillation but would not wish for intubation. I discussed this level of care with the hospitalist who will initiate do not intubate orders. 08/15/23: She denied fever, chills, rigors. White blood cell count 6.1, creatinine 0.6, D-dimer 0.66 positive. Chest x-ray today shows hyperinflation with no pleural effusions. Left upper lobe scar. No change from 08/14/2023. Plan: Patient is improved. I will change her Solu-Medrol to prednisone 40 mg a day. I will continue DuoNebs q.4 hours. Noninvasive ventilation p.r.n. during the day. Nasal cannula with goal saturation 90-94%. I will perform CT angiogram of the chest to exclude PE, echocardiogram to assess LV function, RV function, valve function and pulmonary pressures. Upper and lower extremity Dopplers as her D dimer is positive. Later in the day patient had a CT angiogram of the chest was negative for PE, severe panlobular emphysema all lung alvarez, left upper lobe mass. Upper and lower extremity Dopplers negative. 08/16/23: Patient was off BiPAP during the day yesterday. Overall the patient states that she is breathing at her baseline. Her cough and phlegm production or at her baseline. Her white blood cell count is 9.5, creatinine is 0.7. Plan: Continue prednisone 40 mg a day, day 3. Continue DuoNebs q.4 hours and continue budesonide 0.5 mg q.12 hours. Goal saturation 90-94%. Currently patient is on 3 L which is her home setting. I had a discussion with the and the daughter explaining to them that the patient is on noninvasive ventilation with a PaCO2 of 79 at the end of the night indicating severe gas exchange abnormality.
[2023-08-16] MEDS: ALPRAZolam (*CRX) 0.125 MG TABLET PO (10:57)
--- NOTE | 2023-08-16 11:42 | PM.IMPN ---
Progress Note: A&P Assessment and Plan (1) COPD exacerbation: Code(s): J44.1 - Chronic obstructive pulmonary disease with (acute) exacerbation Status: Acute Assessment and Plan: Patient presents with SOB and found to have acute respiratory failure. ABG showed acute on chronic respiratory acidosis with metabolic alkalosis. PCO2 141. CXR showing airspace opacity left lung apex CTA chest today no PE but showed severe emphysema with left upper lobe changes c/w treated malignancy. Treated with BIPAP, IV steroids, and bronchodilators Repeat ABG showing improvement On 08/16 she continues to show improvement. IV steroids transition to oral. Will get [facility] and home noninvasive ventilation testing tonight. Continue to appreciate pulmonology recs. (2) Acute and chronic respiratory failure with hypercapnia: Code(s): J96.22 - Acute and chronic respiratory failure with hypercapnia Status: Acute Assessment and Plan: Patient with acute on chronic resp failure. Most likely COPD exacerbation. CTA chest shownig no PE and only chronic findings so PNA less likely. Dopplers UE and LE negative for DVT BNP 195. Echo pending ABG better at 7.33/102/81. Patient at end stage resp failure. Discussed with pulmonary who felt hospice discussion was reasonable. Spoke with and he was receptive to hospice. Patient now DNR. He will speak with family about moving forward On 08/16. Patient is stable. Family not ready for her to enter hospice. Discussion remains on the table. (3) Macrocytic anemia: Code(s): D53.9 - Nutritional anemia, unspecified Status: Acute Assessment and Plan: Hgb in the 9 range and stable. No baseline to compare. Macrocytic with MCV 112 B12/folate normal Monitor HH. Transfuse as needed (4) Syncope: Code(s): R55 - Syncope and collapse Status: Acute Assessment and Plan: Patient with syncopal episode likely related to respiratory failure given the severity of her ABG CTA chest negative for PE. Echo pending. PT/OT ordered monitor on tele (5) Multiple nodules of lung: Code(s): R91.8 - Other nonspecific abnormal finding of lung field Status: Acute Assessment and Plan: CTA chest showing AMINATA scarring but no mention of pulmonary nodules. Pulmonology following. Plan 73-year-old female with history of end-stage COPD with chronic respiratory failure, anxiety, pulmonary hypertension. Presented with shortness of breath. Admitted on 08/14/2023 FEN: Saline lock IV. GI prophylaxis: Not indicated DVT prophylaxis: Lovenox Lines: Peripheral IV Code Status: DNR Dispo: Stable. Subjective Date/time seen: 08/16/23 11:42 Interval history: No acute overnight events. She currently denies any symptoms Exam Const: General: comfortable and no acute distress Other: A&O x3 Eyes: Pupils: Equal, round and reactive pupils present Neck: Neck: supple Resp: Effort & Inspection: normal respiratory effort Cardio: Rate: regular rate Rhythm: regular rhythm GI: GI Palp: Yes Soft to palpation and No Tenderness to palpation present (GI) Extrem: General: no edema Objective Data Vital Signs Vital Signs: Vital Signs - 24 hr 08/15/23 12:06 08/15/23 11:45 08/15/23 13:27 Temperature 97.8 F Pulse Rate 102 H 100 Respiratory Rate 22 H 22 H Blood Pressure 111/67 Pulse Oximetry 98 Oxygen Delivery Nasal Cannula Oxygen Flow Rate 6 Fraction of Inspired Oxygen 08/15/23 13:37 08/15/23 13:46 08/15/23 12:00 Temperature Pulse Rate 90 101 H Respiratory Rate 22 H Blood Pressure Pulse Oximetry 97 Oxygen Delivery Nasal Cannula Oxygen Flow Rate 3 Fraction of Inspired Oxygen 08/15/23 12:00 08/15/23 14:00 08/15/23 16:00 Temperature Pulse Rate 90 92 79 Respiratory Rate 22 H Blood Pressure Pulse Oximetry 97 Oxygen Delivery Nasal Cannula Oxygen Flow Ra
--- NOTE | 2023-08-16 14:25 | PCOTNOTE ---
Attempted to see Patient this afternoon. Patient's present and stated they have home health planned to be coming out once they return home. Patient's was explained that we are ordered for services while the Patient is in the hospital. Patient's stated he understood and that she had performed some therapy today and would rather OT services, hold off for today. Per RN, have Patient perform as wanted.
[2023-08-16] MEDS: PHARMACIST COMMUNICATION ORDER 1 EACH XX (19:44)
[2023-08-16] MEDS: ACETAMINOPHEN 325 MG TABLET 650 MG PO (20:48)
[2023-08-16 23:30] LABS: Adenovirus DNA Not Detected (Not Detected); Chlamydophila pneumoniae Not Detected (Not Detected); Coronavirus 229E Not Detected (Not Detected); Coronavirus HKU1 Not Detected (Not Detected); Coronavirus NL63 Not Detected (Not Detected); Coronavirus OC43 Not Detected (Not Detected); Human Metapneumovirus Not Detected (Not Detected); Human Parainfluenza Virus 1 Not Detected (Not Detected); Human Parainfluenza Virus 2 Not Detected (Not Detected); Human Parainfluenza Virus 3 Not Detected (Not Detected); Human Parainfluenza Virus 4 Not Detected (Not Detected); Human RSV B Not Detected (Not Detected); Influenza A Not Detected (Not Detected); Influenza B Not Detected (Not Detected); Mycoplasma pneumoniae Not Detected (Not Detected); Rhinovirus/Enterovirus Not Detected (Not Detected)
[2023-08-17] VITALS (18 sets, daily range): BP systolic 99–135; BP diastolic 39–68; PULSE 55–104; RESP 16–24; TEMP 36.2–36.8; O2SAT 86–100
[2023-08-17 04:53] LABS: Alveolar/Arterial O2 Gradient 53.5 mmHg; Base Excess ABG 22.6 mEq/l (+/-2.0); Fractional Inspired Oxygen 40 %; HCO3 ABG 50.8 mEq/l (22.0-26.0); Oxygen Content ABG 13.9 %vol (16.0-22.0); Oxygen Saturation ABG 98.6 % (95.0-100.0); Oxyhemoglobin 97.7 % THb (90.0-100.0); PO2 ABG 137.9 mmHg (80.0-100.0); PO2 FiO2 Ratio Arterial Blood 3.45 %; Total Hemoglobin 9.9 g/dL (12.0-18.0); pH ABG 7.412 (7.350-7.450)
[2023-08-17 04:57] LABS: Device NON-INVASIVE VENT; Modified Allen's Test Pass; PCO2 ABG 81.6 mmHg (35.0-45.0); Site Drawn RIGHT RADIAL
[2023-08-17 04:58] LABS: Non-Invasive Expiratory Pressure 6 CMH2O; Non-Invasive Vent Rate 22 /MIN
[2023-08-17] MEDS: dilTIAZem HCL 60 MG TABLET PO (05:20)
--- NOTE | 2023-08-17 06:24 | PCRCNOTE ---
Pt was on an overnight sleep study, RT did not wake patient for Q4 tx. Treatments will resume at 0800.
[2023-08-17] MEDS: IPRATROPIUM 0.5 MG/ALBUTEROL SULFATE 2.5 MG AMPUL.NEB 3 ML INHALATION ×2 (08:30→12:59)
[2023-08-17] MEDS: BUDESONIDE RESPULE NEB 0.5 MG/2 ML AMP INHALATION (08:31)
[2023-08-17] MEDS: ESCITALOPRAM OXALATE 10 MG TABLET PO (09:03)
[2023-08-17] MEDS: predniSONE 20 MG TABLET 40 MG PO (09:03)
[2023-08-17] MEDS: FUROSEMIDE 20 MG TABLET PO (09:03)
[2023-08-17] MEDS: SPIRONOLACTONE 25 MG TABLET PO (09:03)
[2023-08-17] MEDS: ENOXAPARIN 40 MG/0.4 ML SYRINGE SUB-Q (09:04)
--- NOTE | 2023-08-17 09:50 | P.PNPL_ITS ---
Progress Note: A&P Assessment and Plan (1) COPD exacerbation: Code(s): J44.1 - Chronic obstructive pulmonary disease with (acute) exacerbation Status: Acute Assessment and Plan: Gold grade 4 group E COPD Patient followed in the Pulmonary Clinic in last seen on 05/11/2023 patient with 84 pack year history tobacco use, quit 04/11/2012, FEV1 22% on 07/31/2015, ? DLCO remained moderately decreased when adjusted for alveolar volume, lung volumes were not performed, with severe panlobular emphysema on CT scan.? She was using 3 L with rest, 6 with exertion. She was wearing a noninvasive trilogy every night with sleep since 2017. AVAPS EA mode with respiratory rate is 20, tidal volume 420, EPAP minimum 5, EPAP maximum 15, pressure support minimum 8, pressure support maximum 15, maximum pressure 30, rise time 3, ramp length 20. She wears 5 L NC under the mask. She was using Brovana nebs b.i.d., Spiriva Handy haler q.day and levalbuterol once daily in the morning.? Budesonide was added back 06/29/2021.? Currently the patient presents with acute on chronic hypoxemic and hypercarbic respiratory failure with no evidence of an acute change in her shortness of breath, sputum volume, sputum color or her symptoms. She had acute deterioration when she ambulated to the bathroom and had hypoxemia leading to a syncopal episode which responded once EMS arrived and gave her Ambu bag ventilation. Currently the patient states she is breathing 90% back to her normal and has no wheezing. Plan: Agree with Solu-Medrol 40 Q 8 for now. Continue DuoNebs q.4 hours. I will discontinue the trilogy inhaler as she is on maximal doses of beta agonists, muscarinic antagonists and steroids with the Solu-Medrol and DuoNebs. She has no evidence of a bacterial infection and I agree with no antibiotics. I will send a COVID, RSV and influenza RT PCR study as well as a swab for respiratory pathogen panel to [facility]. Patient had desaturations turning over in bed and I will not attempt to obtain a CT scan of the chest currently. I will obtain a D-dimer in the morning. Echocardiogram has been ordered. I will check a chest x-ray in the morning. I spoke to the regarding patient's resuscitation wishes and the patient has discussed this with the and the patient would wish for CPR and defibrillation but would not wish for intubation. I discussed this level of care with the hospitalist who will initiate do not intubate orders. 08/15/23: She denied fever, chills, rigors. White blood cell count 6.1, creatinine 0.6, D-dimer 0.66 positive. Chest x-ray today shows hyperinflation with no pleural effusions. Left upper lobe scar. No change from 08/14/2023. Plan: Patient is improved. I will change her Solu-Medrol to prednisone 40 mg a day. I will continue DuoNebs q.4 hours. Noninvasive ventilation p.r.n. during the day. Nasal cannula with goal saturation 90-94%. I will perform CT angiogram of the chest to exclude PE, echocardiogram to assess LV function, RV function, valve function and pulmonary pressures. Upper and lower extremity Dopplers as her D dimer is positive. Later in the day patient had a CT angiogram of the chest was negative for PE, severe panlobular emphysema all lung alvarez, left upper lobe mass. Upper and lower extremity Dopplers negative. 08/16/23: Patient was off BiPAP during the day yesterday. Overall the patient states that she is breathing at her baseline. Her cough and phlegm production or at her baseline. Her white blood cell count is 9.5, creatinine is 0.7. Plan: Continue prednisone 40 mg a day, day 3. Continue DuoNebs q.4 hours and c ontinue budesonide 0.5 mg q.12 hours. Goal saturation 90-94%. Currently patient
--- NOTE | 2023-08-17 10:32 | PM.DS ---
DS: Admitting Diagnosis Discharge Date August 17, 2023 Admitting Diagnosis Shortness of breath DS: Discharge Diagnosis Discharge Diagnosis (1) Respiratory failure with hypoxia and hypercapnia: Code(s): J96.91 - Respiratory failure, unspecified with hypoxia; J96.92 - Respiratory failure, unspecified with hypercapnia Status: Acute (2) Syncope: Code(s): R55 - Syncope and collapse Status: Acute (3) COPD exacerbation: Code(s): J44.1 - Chronic obstructive pulmonary disease with (acute) exacerbation Status: Acute (4) Multiple nodules of lung: Code(s): R91.8 - Other nonspecific abnormal finding of lung field Status: Acute DS: Summary Hospital Course Hospital Course: This is a pleasant 73-year-old female with a history of 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 She presented with shortness of breath on August 14, 2023 The patient has been treated with DuoNebs and steroids and noninvasive ventilator and her acute on chronic hypoxia and hypercarbia have improved. Pulmonology was consulted and she will be discharged home on the following: Prednisone 40 mg p.o. q.day x1 day Arformoterol 15 mcg? nebulized b.i.d. Spiriva Respimat 2.5 mcg 2 inhalations q.day Rescue albuterol 2 puffs Q? 4 hours p.r.n. shortness of breath or wheezing Oxygen at rest and with activity per formal home O2 assessment which have been ordered. When patient naps or sleeps noninvasive ventilation through via med with AVAPS AE with a breath rate of 18, tidal volume 420, minimum EPAP 5, maximum EPAP 15, minimum pressure support 8, maximum pressure support 15, total maximum pressure 30, rise time 3 and 4 L NC under mask. She also has budesonide nebulizer at home. She did have a syncopal episode which was likely related to respiratory failure. No other concerning events during her stay. Patient has a history of pulmonary nodules. CTA angiogram conducted this admission which revealed scarring in the left upper lobe. Images from [facility] from years prior have been pushed through and a formal comparison of her CT scans has been requested. Hospice was consulted and a meeting was held with family although they were not interested in hospice at this time. She was DNR during her stay. The patient is discharged in stable condition to home with her family on 08/17/2023. She has home health set up as well. Time Spent with Patient Time attestation: Total time spent providing and/or coordinating discharge services: Exam Const: General: comfortable and no acute distress Other: A&O x3 Eyes: Pupils: Equal, round and reactive pupils present Neck: Neck: supple Resp: Effort & Inspection: normal respiratory effort Cardio: Rate: regular rate Rhythm: regular rhythm GI: GI Palp: Yes Soft to palpation and No Tenderness to palpation present (GI) Extrem: General: no edema DS: Data Data Completed and Pending Labs on day of discharge: Labs from last 24 hours 08/17/23 08/14/23 04:27 17:43 Puncture Site Right radial ABG pH 7.412 ABG pCO2 81.6 H* ABG pO2 137.9 H ABG PO2/FiO2 Ratio 3.45 ABG HCO3 50.8 H ABG O2 Saturation 98.6 ABG O2 Content 13.9 L ABG Base Excess 22.6 A-a Gradient 53.5 Oxyhemoglobin 97.7 Total Hemoglobin 9.9 L O2 Delivery Device Non-invasive vent O2 Liters/Min Not Reportable Vent Rate 22 FiO2 40 Expiratory Pressure 6 Inspiratory Pressure Not Reportable Nasal RSV Type A (PCR) Not detected Nasal RSV Type B (PCR) Not detected Chlamy pneumoniae PCR Not detected Adenovirus DNA Not detected Human Bocavirus (SENG) Not detected Coronavirus Type OC43 Not detected Coronavirus Type HKU1 Not detected Coronavirus Type 229E Not detected Coronavirus Type NL63 Not detected Human Metapneumovir PCR Not detected Influenza A (PCR) Not detected Influenza A (H1) RNA Not detected I
--- NOTE | 2023-08-17 11:42 | HOMEO2EVAL ---
Evaluation was performed at [facility] Home Oxygen Evaluation RC: Home Oxygen (O2) Evaluation Start: 08/17/23 09:04 Freq: ONCE Status: Active Protocol: RPE Activity Type Activity Date Activity User E-sign Co-sign Detail Recorded Client Recorded Date Recorded By Document 08/17/23 10:00 CHRISTINE [email or web address] 08/17/23 11:42 CHRISITNE Document 08/17/23 10:01 CHRISTINE [id number] 08/17/23 11:42 CHRISTINE Document 08/17/23 10:02 CHRISTINE [email or web address] 08/17/23 11:42 CHRISTINE Document 08/17/23 10:05 CHRISTINE [email or web address] 08/17/23 11:42 CHRISTINE Document 08/17/23 10:06 CHRISTINE [email or web address] 08/17/23 11:42 CHRISTINE Document 08/17/23 10:07 CHRISTINE [email or web address] 08/17/23 11:42 CHRISTINE Document 08/17/23 10:08 CHRISTINE [email or web address] 08/17/23 11:42 CHRISTINE Document 08/17/23 10:15 CHRISTINE [id number] 08/17/23 11:42 CHRISTINE 08/17/23 08/17/23 08/17/23 10:00 10:01 10:02 Home O2 Evaluation [Oxygen] -Test Phase Resting Resting Resting -Oxygen Delivery Room Air Nasal Cannula Nasal Cannula -Oxygen Flow Rate (L/min) 1 2 [Pulse Oximetry] -Pulse Oximetry (90-100 %) 86 L 88 L 91 [Pulse Rate] -Pulse Rate (60-100 beats/min) 79 [Exercise] -Ambulation Distance (feet) -Ambulation Distance (meters) [Comments] -Home Oxygen Evaluation Comments [Charges] -Evaluation Charges O2 Evaluation by Pulmonary 08/17/23 08/17/23 08/17/23 10:05 10:06 10:07 Home O2 Evaluation [Oxygen] -Test Phase Exercise Exercise Exercise -Oxygen Delivery Nasal Cannula Nasal Cannula Nasal Cannula -Oxygen Flow Rate (L/min) 2 3 4 [Pulse Oximetry] -Pulse Oximetry (90-100 %) 86 L 87 L 88 L [Pulse Rate] -Pulse Rate (60-100 beats/min) 98 102 H 104 H [Exercise] -Ambulation Distance (feet) -Ambulation Distance (meters) [Comments] -Home Oxygen Evaluation Comments [Charges] -Evaluation Charges 08/17/23 08/17/23 10:08 10:15 Home O2 Evaluation [Oxygen] -Test Phase Exercise Resting -Oxygen Delivery Nasal Cannula Nasal Cannula -Oxygen Flow Rate (L/min) 5 2 [Pulse Oximetry] -Pulse Oximetry (90-100 %) 91 92 [Pulse Rate] -Pulse Rate (60-100 beats/min) 82 [Exercise] -Ambulation Distance (feet) 500 -Ambulation Distance (meters) 152.39 [Comments] -Home Oxygen Evaluation Comments Pt requires home O2 at 2 L at rest and 5 L with activity and 4 L nocturally [Charges] -Evaluation Charges
== END 2023-08-17 13:54 | disposition home health service (06) | DRG 189 ==
LOC: ANHED 10:10 → ANHIMU 13:37
PROVIDERS: Internal Medicine; Internal Medicine Pulmonary Disease; Admitting Provider Internal Medicine; Emergency Provider Emergency Medicine; PCP Internal Medicine; Visit Provider General Practice
DX: J96.22 Acute and chronic respiratory failure with hypercapnia (principal); J96.21 Acute and chronic respiratory failure with hypoxia; J43.1 Panlobular emphysema; R91.8 Other nonspecific abnormal finding of lung field; D53.9 Nutritional anemia, unspecified; F41.9 Anxiety disorder, unspecified; I27.20 Pulmonary hypertension, unspecified; R55 Syncope and collapse; Z20.822 Contact with and (suspected) exposure to COVID-19; Z66 Do not resuscitate; Z87.891 Personal history of nicotine dependence
CPT/HCPCS: 36415; 36600; 71045; 71275; 80053; 82375; 82607; 82746; 82805; 83050; 83605; 83880; 85025; 85055; 85380; 85610; 85730; 87633; 87637; 93005; 93970; 94002; 94003; 94618; 94640; 94762; 97110; 97161; 97165; 97530; 99285; A9270; C8929; G0378; J1650; J2920; J7512; Q9957; Q9967

== ENCOUNTER 2023-09-07 10:43 | Inpatient (IN) | payer MEDICARE, BC, SELFPAY ==
[2023-09-07] VITALS (33 sets, daily range): BP systolic 102–135; BP diastolic 54–65; PULSE 81–106; RESP 16–33; TEMP 36.4–36.6; O2SAT 88–100; BMI 18.2
--- NOTE | ~2023-09-07 | XR_ITS ---
EXAMINATION: XR chest 1V portable DATE: 09/07/2023 12:36 INDICATION: Shortness of breath. TECHNIQUE: A single frontal view of the chest was obtained. COMPARISON: Chest single view 08/15/2023, chest CT 08/15/2023, 10/08/2020 FINDINGS: There are lucencies and interstitial opacities in the lungs, consistent with emphysema. The re are airspace opacities with volume loss in left upper lung zone. No pleural effusion or pneumothor ax. The heart size is normal. IMPRESSION: 1. Severe emphysema. 2. Chronic airspace opacities with volume loss in left upper lung zone, consistent with scarring. Reviewed, dictated and finalized at location A. IMPRESSION: 1. Severe emphysema. 2. Chronic airspace opacities with volume loss in left upper lung zone, consist ent with scarring.
--- NOTE | 2023-09-07 10:48 | ECG_ITS ---
Measurements Intervals [place] Rate: 88 P: 70 [place]: 127 QRS: 80 QRSD: 89 T: 57 QT: 325 QTc: 393 Interpretive Statements SINUS RHYTHM BASELINE ARTIFACT- I, III, AVR, V1-V2 NORMAL ECG COMPARED TO ECG 08/14/2023 09:25:36 NO SIGNIFICANT CHANGES Electronically Signed On 09-07-2023 11:18:49 CDT by Narinder Myers D.O.
[2023-09-07 11:07] LABS: Alveolar/Arterial O2 Gradient 47.7 mmHg; Base Excess ABG 22.2 mEq/l (+/-2.0); Fractional Inspired Oxygen 44 %; HCO3 ABG 55.7 mEq/l (22.0-26.0); Oxygen Content ABG 14.5 %vol (16.0-22.0); Oxygen Saturation ABG 94.9 % (95.0-100.0); Oxyhemoglobin 94.7 % THb (90.0-100.0); PO2 ABG 98.8 mmHg (80.0-100.0); PO2 FiO2 Ratio Arterial Blood 2.25 %; Total Hemoglobin 10.8 g/dL (12.0-18.0)
[2023-09-07 11:19] LABS: PCO2 ABG 146.7 mmHg (35.0-45.0); pH ABG 7.197 (7.350-7.450)
[2023-09-07 11:20] LABS: Device NASAL CANNULA; Site Drawn RIGHT RADIAL
[2023-09-07] MEDS: ALBUTEROL SULFATE NEB 2.5 MG/3 ML INH 15 MG INHALATION (11:33)
[2023-09-07] MEDS: IPRATROPIUM BR 0.02% INH SOLN 0.5 MG/2.5 ML VIAL 1.5 MG INHALATION (11:33)
[2023-09-07 11:46] LABS: Basophils Percent Auto 0.3 % (0.2-1.2); Eosinophils Absolute Auto 0.1 K/mm3 (0-0.3); Eosinophils Percent Auto 0.9 % (0-4.4); Hematocrit 33.6 % (37.0-47.0); Hemoglobin 9.6 g/dL (12.0-15.0); Immature Granulocyte Absolute 0.02 K/mm3 (0.00-0.031); Immature Granulocyte Percent A 0.3 % (0-0.5); Immature Platelet Fraction Pct 7.3 % (0.9-11.2); Lymphocytes Absolute Auto 0.89 K/mm3 (0.9-3.2); Mean Corpuscular HGB Conc 28.6 g/dl (32-36); Mean Corpuscular Hemoglobin 32.4 pg (26-34); Mean Corpuscular Volume 113.5 fl (80-100); Mean Platelet Volume 11.3 fl (7.4-10.4); Monocytes Absolute Auto 0.7 K/mm3 (0.1-0.6); Monocytes Percent Auto 9.7 % (2.6-8.5); Neutrophils Absolute Auto 5.7 K/mm3 (1.3-6.7); Neutrophils Percent Auto 76.8 % (45.5-73.1); Platelet Count Result 127 k/mm3 (150-375); Red Blood Count 2.96 M/mm3 (4.2-5.4); Red Cell Distribution Width 11.6 % (11.5-14.5); White Blood Count 7.4 K/mm3 (4.5-10.0)
[2023-09-07 11:57] LABS: Lactic Acid Reflex 0.7 mmol/L (0.7-2.0)
[2023-09-07 12:08] LABS: Platelet Estimate Adequate (Adequate); Stomatocytes 1+
[2023-09-07 12:09] LABS: Schistocytes None Seen
[2023-09-07 12:20] LABS: D Dimer 0.68 ug/mL (<0.48)
[2023-09-07 12:22] LABS: Influenza A QL RT-PCR Negative (Negative); Influenza B QL RT-PCR Negative (Negative); RSV RNA, RT-PCR Negative (Negative); SARS-CoV-2 RNA PCR Negative (Negative)
[2023-09-07 12:39] LABS: Alanine Aminotransferase 16 U/L (6-35); Albumin Level 4.1 g/dL (3.5-5.1); Alkaline Phosphatase 67 U/L (38-126); Aspartate Amino Transferase 25 U/L (14-36); Bilirubin,Total 0.5 mg/dL (0.2-1.3); Blood Urea Nitrogen 18 mg/dL (7-17); Calcium 9.4 mg/dL (8.4-10.2); Carbon Dioxide > 40 mmol/L (22-30); Chloride 84 mmol/L (98-107); Estimated CRCL calculation 57 ml/min; Estimated Glomerular Filt Rate > 60; Glucose 131 mg/dL (65-110); Sodium 139 mmol/L (137-145)
--- NOTE | 2023-09-07 13:05 | ED.SOB ---
HPI - SOB/Dyspnea General Chief Complaint: Shortness of Breath/Dyspnea Stated Complaint: sudden onset SOB Time Seen by Provider: 09/07/23 10:48 History of Present Illness HPI Narrative: Patient is a 73-year-old female who presents the ER with confusion shortness of breath. Per EMS noticed patient was becoming more tired yesterday. She is found to be hypoxic today. She has been wearing 1-2 L of oxygen through approximately 50 ft of oxygen tubing. No reports of recent infection or cough. Patient has known emphysema. Related Data Home Medications Medication Instructions Recorded Confirmed tiotropium bromide 2.5 2 inhalation inhalation QAM 09/30/19 08/14/23 mcg/actuation mist for inhalation (Spiriva Respimat) diltiazem HCl 180 mg capsule,24 60 mg PO TID 04/10/20 08/14/23 hr,extended release escitalopram oxalate 10 mg tablet 10 mg PO DAILY 04/10/20 08/14/23 furosemide 20 mg tablet 20 mg PO QAM 04/10/20 08/14/23 spironolactone 25 mg tablet 25 mg PO DAILY 04/10/20 08/14/23 budesonide 0.25 mg/2 mL suspension 0.25 mg BID 08/14/23 08/14/23 for nebulization alendronate 70 mg tablet 70 mg PO WEEKLY 08/15/23 08/15/23 alprazolam 0.25 mg tablet 0.25 mg PO BID PRN Anxiety 08/16/23 08/16/23 Allergies Allergy/AdvReac Type Severity Reaction Status Date / Time No Known Allergies Allergy Unverified 09/07/23 10:57 Review of Systems Review of Systems: ROS unobtainable: Yes unobtainable due to mental status [facility] Past Medical History Medical History (Updated 09/07/23 @ 18:49 by German Barboza MD) Anxiety COPD (chronic obstructive pulmonary disease) Multiple nodules of lung Pulmonary hypertension Respiratory failure Family History Family History Sibling Family history of malignant neoplasm Carcinoma of colon Social History Social History Smoking packs per day: 2 Smoking cigarettes per day: 40.0 Years smoked: 30 Smoking pack-years: 60.00 Smoking status: Former smoker Tobacco type: cigarettes Smoking end date: 04/11/12 Alcohol intake: never Substance use: never Do You Feel Safe in your Home?: Yes Lack of Transportation: No Lack of Food: Never True Current Housing: I Have Housing Concerned About Future Housing: No Difficulty Paying Gas/Electric Bills: No Difficulty Paying for Meds: No Currently Unemployed: No Education: High School Diploma/GED Difficulty w/ Childcare or Family Care: No Spiritual care concerns: No Exam Narrative: GENERAL: Chronically ill-appearing, well-nourished, and in no acute distress. HEAD: Normocephalic, atraumatic. ENT: Mucous membranes moist. NECK: Supple. CHEST: diminished lung sounds throughout. No respiratory distress. HEART: Regular rate and rhythm. Normal peripheral pulses. ABDOMEN: Soft, nontender, nondistended. EXTREMITIES: Normal range of motion. No edema. SKIN: Warm, dry, no rash. NEURO: Alert and oriented x1. PSYCH: Normal mood and affect. Course Course Emergency Course: ABG with significant hypercapnic respiratory failure. Patient started on BiPAP. Admit to hospitalist service. Repeat ABG shows pCO2 down trending. No evidence of pneumonia. Vital Signs Vital signs: Vital Signs Temperature 98 F 09/07/23 10:45 Pulse Rate 86 09/07/23 10:45 Respiratory Rate 22 H 09/07/23 10:45 Blood Pressure 128/62 09/07/23 10:45 Pulse Oximetry 96 09/07/23 10:45 Oxygen Delivery Nasal Cannula 09/07/23 10:45 Oxygen Flow Rate 4 09/07/23 10:45 Temperature 97.8 F 09/07/23 16:35 Pulse Rate 97 09/07/23 18:00 Respiratory Rate 24 H 09/07/23 16:40 Blood Pressure 122/63 09/07/23 16:35 Pulse Oximetry 97 09/07/23 16:40 Oxygen Delivery BiPAP 09/07/23 16:40 Oxygen Flow Rate 4 09/07/23 10:45 Fraction of Inspired Oxygen 40 09/07/23 13:38 MDM - SOB/Dyspnea
[2023-09-07 13:51] LABS: Alveolar/Arterial O2 Gradient 103.6 mmHg; Fractional Inspired Oxygen 40 %; HCO3 ABG 50.9 mEq/l (22.0-26.0); Methemoglobin ABG 0.3 %THb (0-1.5); Oxygen Content ABG 12.4 %vol (16.0-22.0); PO2 ABG 54.2 mmHg (80.0-100.0); PO2 FiO2 Ratio Arterial Blood 1.36 %; Reduced Hemoglobin 14.4 %THb (0-5.0); Total Hemoglobin 10.4 g/dL (12.0-18.0)
[2023-09-07 13:56] LABS: PCO2 ABG 110.8 mmHg (35.0-45.0)
[2023-09-07 13:57] LABS: Oxygen Saturation ABG 80.7 % (95.0-100.0); Oxyhemoglobin 84.3 % THb (90.0-100.0); Site Drawn RIGHT RADIAL
[2023-09-07 13:58] LABS: Device BIPAP
[2023-09-07 15:45] LABS: Expiratory Pressure 8 cmH2O; Inspiratory Pressure 16 cmH2O
--- NOTE | 2023-09-07 16:49 | ADMGEN ---
This patient, Betsy Villa, was admitted to IMU Room 200-01. Patient/family oriented to hospital policies and general routines including ID bracelet, bed and alarms, visiting hours, pain management, procedures, bathroom and other care routines, personal items, smoking policy, room service/diet, and visiting hours. Information on how to activate the Rapid Response Team has been discussed. Patient/Family are encouraged to report perceived risks to care and to ask questions if they do not understand what they are told or what they should do.
--- NOTE | 2023-09-07 19:29 | PM.IMHP ---
H&P: HPI History of Present Illness Date/Time: 09/07/23 19:29 Chief Complaint: SOB Narrative: 73 y/o F presents here with SOB with PMH of COPD, respiratory failure, pulmonary hypertension, and anxiety. NATHANAEL? On BiPAP at night. Patient presented here for evaluation of shortness of breath. Majority of HPI obtained through 's input with patient's permission and chart review. Per , the patient has been worsening over the last week, but acutely worsened this morning. Over the last week he has noticed that she has been nodding off/falling asleep intermittently and not acting herself . After walking (today) to the bathroom and then being placed back on trelegy machine when she laid down, noted that her O2 sat continued to fall despite being on the machine. Lowest O2 sat at 68% per their home pulse ox. then called EMS. Patient uses 2-3L NC supplemental O2 for the past 7 years and wears Trelegy at night or when she lays flat. Trelegy machine was assessed 1 month ago by pulmonology here and was working well. Reported she uses 50 ft extension tubing for O2 administration, acknowledged higher amounts were occasionally needed because of length of tubing. During EMS transport, patient received 1 nebulizer with subsequent increase in O2 sat to 90%. At arrival to the emergency department, patient's O2 sat was 96% on 4L NC. Was later titrated to 6L NC, then placed on BiPAP after ABG showed acidosis and hypercarbia. Denied any recent infections or illnesses. No fever, chills, body aches, or headaches. No increased sputum production or increased sputum purulence. Initial VS at presentation: 98 F, HR 86, RR 22, 128/62, 96% on 4L NC. Later placed on BiPAP. ED workup showed: No leukocytosis, stable anemia with Hgb of 9.6, D-dimer 0.68 (normal when adjusted for age), abnormal ABG, creatinine 0.5, and viral PCR negative. CXR showed severe emphysema and chronic airspace opacities with volume loss consistent with scarring. Review of Systems Review of Systems: All systems reviewed & are unremarkable except as noted in HPI and below [facility] Past Medical History Medical History (Updated 09/07/23 @ 21:51 by Jing Contreras, ARSENIO) Anxiety COPD (chronic obstructive pulmonary disease) Multiple nodules of lung Pulmonary hypertension Respiratory failure Family History Family History Sibling Family history of malignant neoplasm Carcinoma of colon Social History Social History Smoking packs per day: 2.5 Smoking cigarettes per day: 50.0 Years smoked: 30 Smoking pack-years: 75.00 Smoking status: Former smoker Tobacco type: cigarettes Smoking end date: 04/11/12 Alcohol intake: former Substance use: never Do You Feel Safe in your Home?: No Lack of Transportation: No Lack of Food: Never True Current Housing: I Have Housing Concerned About Future Housing: No Difficulty Paying Gas/Electric Bills: No Difficulty Paying for Meds: No Currently Unemployed: No Education: High School Diploma/GED Difficulty w/ Childcare or Family Care: No Spiritual care concerns: No Meds Home Medications and Allergies Home Medications Medication Instructions Recorded Confirmed Type tiotropium bromide 2.5 2 inhalation inhalation QAM 09/30/19 09/07/23 History mcg/actuation mist for inhalation (Spiriva Respimat) diltiazem HCl 180 mg capsule,24 60 mg PO TID 04/10/20 09/07/23 History hr,extended release escitalopram oxalate 10 mg tablet 10 mg PO DAILY 04/10/20 09/07/23 History furosemide 20 mg tablet 20 mg PO QAM 04/10/20 09/07/23 History spironolactone 25 mg tablet 25 mg PO DAILY 04/10/20 09/07/23 History arformoterol 15 mcg/2 mL solution See Rx Instructions .Route 06/19/23 09/07/23 Rx for nebulization .COMPLEX #120 mL budesonide 0.25 mg/2 mL suspension 0.25 mg inhalat
[2023-09-07] MEDS: methylPREDNISolone SOD SUCC 125 MG VIAL IV PUSH (20:26)
[2023-09-07] MEDS: IPRATROPIUM 0.5 MG/ALBUTEROL SULFATE 2.5 MG AMPUL.NEB 3 ML INHALATION (21:41)
[2023-09-07] MEDS: BUDESONIDE RESPULE NEB 0.5 MG/2 ML AMP 0.25 MG INHALATION (21:42)
[2023-09-07 21:50] LABS: Alveolar/Arterial O2 Gradient 147.6 mmHg; Base Excess ABG 18.7 mEq/l (+/-2.0); Fractional Inspired Oxygen 50 %; HCO3 ABG 49.3 mEq/l (22.0-26.0); Oxygen Content ABG 14.4 %vol (16.0-22.0); Oxygen Saturation ABG 95.3 % (95.0-100.0); Oxyhemoglobin 94.7 % THb (90.0-100.0); PO2 ABG 91.1 mmHg (80.0-100.0); PO2 FiO2 Ratio Arterial Blood 1.82 %; Total Hemoglobin 10.7 g/dL (12.0-18.0)
[2023-09-07 21:53] LABS: pH ABG 7.291 (7.350-7.450)
[2023-09-07 21:54] LABS: Device NON-INVASIVE VENT; Modified Allen's Test Pass; PCO2 ABG 104.7 mmHg (35.0-45.0); Site Drawn RIGHT RADIAL
[2023-09-07 21:56] LABS: Non-Invasive Expiratory Pressure 8 CMH2O; Non-Invasive Inspiratory Pressure 16 CMH2O; Non-Invasive Vent Rate 20 /MIN
[2023-09-07] MEDS: dilTIAZem HCL 60 MG TABLET PO (23:08)
[2023-09-08] VITALS (28 sets, daily range): BP systolic 103–111; BP diastolic 51–92; PULSE 64–121; RESP 17–29; TEMP 36.3–36.8; O2SAT 90–100; BMI 18.2
[2023-09-08] MEDS: IPRATROPIUM 0.5 MG/ALBUTEROL SULFATE 2.5 MG AMPUL.NEB 3 ML INHALATION ×4 (02:06→20:15)
[2023-09-08 06:01] LABS: Hematocrit 32.2 % (37.0-47.0); Hemoglobin 9.3 g/dL (12.0-15.0); Immature Granulocyte Absolute 0.01 K/mm3 (0.00-0.031); Immature Granulocyte Percent A 0.2 % (0-0.5); Immature Platelet Fraction Pct 9.5 % (0.9-11.2); Lymphocytes Absolute Auto 0.12 K/mm3 (0.9-3.2); Mean Corpuscular HGB Conc 28.9 g/dl (32-36); Mean Corpuscular Hemoglobin 32.4 pg (26-34); Mean Corpuscular Volume 112.2 fl (80-100); Mean Platelet Volume 11.5 fl (7.4-10.4); Monocytes Percent Auto 0.5 % (2.6-8.5); Neutrophils Absolute Auto 5.8 K/mm3 (1.3-6.7); Neutrophils Percent Auto 97.3 % (45.5-73.1); Platelet Count Result 127 k/mm3 (150-375); Red Blood Count 2.87 M/mm3 (4.2-5.4); Red Cell Distribution Width 11.5 % (11.5-14.5)
[2023-09-08] MEDS: dilTIAZem HCL 60 MG TABLET PO ×3 (06:07→22:50)
[2023-09-08 06:16] LABS: Alanine Aminotransferase 16 U/L (6-35); Albumin Level 3.9 g/dL (3.5-5.1); Alkaline Phosphatase 67 U/L (38-126); Aspartate Amino Transferase 24 U/L (14-36); Bilirubin,Total 0.6 mg/dL (0.2-1.3); Blood Urea Nitrogen 16 mg/dL (7-17); Calcium 9.3 mg/dL (8.4-10.2); Carbon Dioxide > 40 mmol/L (22-30); Chloride 82 mmol/L (98-107); Estimated CRCL calculation 61 ml/min; Estimated Glomerular Filt Rate > 60; Glucose 184 mg/dL (65-110); Potassium 4.7 mmol/L (3.4-5.0); Sodium 137 mmol/L (137-145)
[2023-09-08 06:44] LABS: Platelet Estimate Slightly Decreased (Adequate); Stomatocytes 2+
[2023-09-08 06:45] LABS: Hypochromasia 1+; Schistocytes None Seen
[2023-09-08 08:06] LABS: pH ABG 7.278 (7.350-7.450)
[2023-09-08 08:07] LABS: Alveolar/Arterial O2 Gradient 114.6 mmHg; Base Excess ABG 26.9 mEq/l (+/-2.0); HCO3 ABG 59.1 mEq/l (22.0-26.0); Oxygen Content ABG 14.4 %vol (16.0-22.0); Oxygen Saturation ABG 95.5 % (95.0-100.0); Oxyhemoglobin 95.6 % THb (90.0-100.0); PCO2 ABG 129.3 mmHg (35.0-45.0); PO2 ABG 96.4 mmHg (80.0-100.0); Total Hemoglobin 10.6 g/dL (12.0-18.0)
[2023-09-08 08:08] LABS: Device NON-INVASIVE VENT; Fractional Inspired Oxygen 50 %; Non-Invasive Expiratory Pressure 8 CMH2O; Non-Invasive Inspiratory Pressure 16 CMH2O; Non-Invasive Vent Rate 20 /MIN; PO2 FiO2 Ratio Arterial Blood 1.93 %
[2023-09-08] MEDS: BUDESONIDE RESPULE NEB 0.5 MG/2 ML AMP 0.25 MG INHALATION ×2 (08:19→20:15)
[2023-09-08 08:49] LABS: PCO2 ABG 141.1 mmHg (35.0-45.0)
[2023-09-08 08:50] LABS: Base Excess ABG 33.8 mEq/l (+/-2.0); HCO3 ABG 66.8 mEq/l (22.0-26.0); Oxygen Saturation ABG 95.3 % (95.0-100.0); PO2 ABG 94.8 mmHg (80.0-100.0); Total Hemoglobin 10.4 g/dL (12.0-18.0)
[2023-09-08 08:52] LABS: Oxyhemoglobin 95.7 % THb (90.0-100.0)
[2023-09-08 08:53] LABS: Fractional Inspired Oxygen 50 %; Oxygen Content ABG 14.1 %vol (16.0-22.0)
[2023-09-08 08:54] LABS: Device NON-INVASIVE VENT; Modified Allen's Test Pass; Site Drawn LEFT RADIAL
[2023-09-08 09:00] LABS: Non-Invasive Expiratory Pressure 8 CMH2O; Non-Invasive Inspiratory Pressure 16 CMH2O; Non-Invasive Vent Rate 20 /MIN
[2023-09-08] MEDS: ESCITALOPRAM OXALATE 10 MG TABLET PO (09:09)
[2023-09-08] MEDS: FUROSEMIDE 20 MG TABLET PO (09:09)
[2023-09-08] MEDS: PANTOPRAZOLE SODIUM IV 40 MG VIAL IV PUSH (09:09)
[2023-09-08] MEDS: SPIRONOLACTONE 25 MG TABLET PO (09:09)
[2023-09-08] MEDS: methylPREDNISolone SOD SUCC 125 MG VIAL 60 MG IV PUSH ×2 (09:09→20:23)
[2023-09-08 16:57] LABS: Alveolar/Arterial O2 Gradient 117.4 mmHg; Base Excess ABG 30.1 mEq/l (+/-2.0); Fractional Inspired Oxygen 40 %; HCO3 ABG 59.4 mEq/l (22.0-26.0); Oxygen Content ABG 13.3 %vol (16.0-22.0); Oxygen Saturation ABG 90.3 % (95.0-100.0); Oxyhemoglobin 91.2 % THb (90.0-100.0); PO2 ABG 61.8 mmHg (80.0-100.0); PO2 FiO2 Ratio Arterial Blood 1.54 %; Total Hemoglobin 10.3 g/dL (12.0-18.0)
[2023-09-08 16:59] LABS: Device OTHER DEVICE; Modified Allen's Test Pass; PCO2 ABG 92.2 mmHg (35.0-45.0); Site Drawn LEFT RADIAL
[2023-09-08 17:02] LABS: pH ABG 7.427 (7.350-7.450)
--- NOTE | 2023-09-08 18:42 | PM.IMPN ---
Progress Note: A&P Assessment and Plan (1) Respiratory failure with hypoxia and hypercapnia: Code(s): J96.91 - Respiratory failure, unspecified with hypoxia; J96.92 - Respiratory failure, unspecified with hypercapnia Status: Acute Assessment and Plan: - CXR: 1. Severe emphysema. 2. Chronic airspace opacities with volume loss in left upper lung zone, consistent with scarring. - no leukocytosis In ED: Inital ABG, initial: pH 7.197, pCO2 146.7, pO2 98.8, HCO3 55.7, O2 sat 94.9 % on 6L NC. -> Placed on BiPAP On Floor:Patient continued on BiPAP, transition to AirVo at 40% FiO2 Last ABG shows normal pH 7.427 and imptoved pCO2 92.2 - trend ABG Q6H x3 - duonebs Q6H KYA - steroids - consult to pulmonology, awaiting recs. - monitor daily labs (2) COPD (chronic obstructive pulmonary disease): Qualifiers: COPD type: unspecified COPD Qualified Code(s): J44.9 - Chronic obstructive pulmonary disease, unspecified Code(s): J44.9 - Chronic obstructive pulmonary disease, unspecified Status: Acute Assessment and Plan: - see above - duonebs Q6H KYA - Brovana not available, sub to salmeterol. continue budesonide and tiotropium. - methylprednisolone 125 mg x1 given in ED - methylprednisolone 60 mg IV daily ordered on floor which I increased to q8hrs - no increased sputum production or increased sputum purulence, no evidence of PNA on CXR, no fever. hold on adding abx treatment. Plan Patient with history of chronic respiratory failure, hypercarbic, acidotic, and placed on BiPAP. Trend ABGs, scheduled nebs, add steroids. Pulmonology consulted. Home Meds/Chronic Conditions - continue home Fosamax, Xanax, diltiazem, Lexapro, Lasix, spironolactone Diet: Heart healthy GI Prophylaxis: Pantoprazole DVT Prophylaxis: SCDs, Lovenox Lines: Peripheral Code Status: DNR ? Patient seen and examined at bedside during my morning rounds ? Collaborated with patient's nurse at the bedside in detail and addressed all concerns ? Labs, electrolytes, radiology, investigations and test results reviewed ? Consult/Nursing/Ancilliary notes on the chart reviewed and appreciated ? Spoke with patient/family at the bedside and answered all the questions that they had Repeat labs in a.m. Electrolyte replacement as per protocol. Patient will be monitored very closely on the floor. Further recommendations as per the hospital course. Time Spent With Patient Time with patient: 15 - 25 minutes Subjective Date/time seen: 09/08/23 18:42 Interval history: Patient seen and evaluated at bedside. Spoke with his in detail as well. Continue with BiPAP consider switching to Airvo as needed for severe hypercapnia. Pulmonary consult ordered. Review of Systems Review of Systems: 14 systems were reviewed with pertinent positives and negatives per HPI. Except as documented in the HPI/progress notes, all other systems were reviewed and are negative. All systems reviewed & are unremarkable except as noted in HPI and below Exam Narrative: PHYSICAL EXAMINATION: Vital signs: Please see the chart General physical exam: Patient lying in bed, BiPAP in place, appears tired and fatigued with shortness of breath with she attempts to talk Head/eyes: Atraumatic, EOMI, PERRLA ENT: Moist mucous membranes, nasal passages clear Neck: Supple, full range of motion, trachea midline CVS: S1 + S2, regular rate and rhythm, no murmurs Respiratory: Bilaterally decreased air entry in both lung alvarez, mild B/L crackles, symmetric chest expansion, + BiPAP in place Abdomen: Soft, non-tender, bowel sounds +ve, no organomegaly Extremities: No clubbing, no cyanosis, + trace bilateral pitting edema, no calf tenderness Musculoskeletal: Moves all, adequate range of motion, no muscle spasms Skin: Warm, dry, no jaundice, no cyanosis Neurological: Awake, alert, oriented x 3, cranial nerves II-XII intact, no focal neurological deficits Psyc
[2023-09-09] VITALS (28 sets, daily range): BP systolic 102–123; BP diastolic 48–91; PULSE 64–91; RESP 16–24; TEMP 36.3–37.1; O2SAT 91–100
[2023-09-09] MEDS: IPRATROPIUM 0.5 MG/ALBUTEROL SULFATE 2.5 MG AMPUL.NEB 3 ML INHALATION ×4 (03:41→19:52)
[2023-09-09] MEDS: methylPREDNISolone SOD SUCC 125 MG VIAL 60 MG IV PUSH (05:14)
[2023-09-09] MEDS: dilTIAZem HCL 60 MG TABLET PO ×3 (05:15→20:38)
[2023-09-09 05:17] LABS: Basophils Percent Auto 0.1 % (0.2-1.2); Hematocrit 31.2 % (37.0-47.0); Hemoglobin 9.2 g/dL (12.0-15.0); Immature Granulocyte Absolute 0.02 K/mm3 (0.00-0.031); Immature Granulocyte Percent A 0.3 % (0-0.5); Lymphocytes Absolute Auto 0.21 K/mm3 (0.9-3.2); Lymphocytes Percent Auto 2.9 % (18.3-44.2); Mean Corpuscular HGB Conc 29.5 g/dl (32-36); Mean Corpuscular Hemoglobin 32.2 pg (26-34); Mean Corpuscular Volume 109.1 fl (80-100); Mean Platelet Volume 11.6 fl (7.4-10.4); Monocytes Absolute Auto 0.2 K/mm3 (0.1-0.6); Monocytes Percent Auto 2.9 % (2.6-8.5); Neutrophils Absolute Auto 6.8 K/mm3 (1.3-6.7); Neutrophils Percent Auto 93.8 % (45.5-73.1); Platelet Count Result 148 k/mm3 (150-375); Red Blood Count 2.86 M/mm3 (4.2-5.4); Red Cell Distribution Width 11.6 % (11.5-14.5); White Blood Count 7.3 K/mm3 (4.5-10.0)
[2023-09-09 05:26] LABS: Blood Urea Nitrogen 23 mg/dL (7-17); Calcium 9.3 mg/dL (8.4-10.2); Carbon Dioxide > 40 mmol/L (22-30); Chloride 81 mmol/L (98-107); Estimated CRCL calculation 45 ml/min; Estimated Glomerular Filt Rate > 60; Glucose 146 mg/dL (65-110); Magnesium 2.5 mg/dL (1.6-2.3); Phosphorus 3.1 mg/dL (2.5-4.5); Potassium 4.2 mmol/L (3.4-5.0); Sodium 138 mmol/L (137-145)
[2023-09-09 05:44] LABS: Hypochromasia 1+; Platelet Estimate Adequate (Adequate); Schistocytes None Seen; Stomatocytes 2+
[2023-09-09] MEDS: BUDESONIDE RESPULE NEB 0.5 MG/2 ML AMP 0.25 MG INHALATION (08:23)
[2023-09-09] MEDS: FUROSEMIDE 20 MG TABLET PO (08:24)
[2023-09-09] MEDS: ESCITALOPRAM OXALATE 10 MG TABLET PO (08:24)
[2023-09-09] MEDS: ENOXAPARIN 30 MG/0.3 ML SYRINGE SUB-Q (08:24)
[2023-09-09] MEDS: PANTOPRAZOLE SODIUM IV 40 MG VIAL IV PUSH (08:24)
[2023-09-09] MEDS: SPIRONOLACTONE 25 MG TABLET PO (08:24)
--- NOTE | 2023-09-09 12:15 | PM.CNPUL ---
Assessment and Plan Assessment and plan (1) COPD exacerbation: Code(s): J44.1 - Chronic obstructive pulmonary disease with (acute) exacerbation Status: Acute (2) Respiratory failure with hypoxia and hypercapnia: Code(s): J96.91 - Respiratory failure, unspecified with hypoxia; J96.92 - Respiratory failure, unspecified with hypercapnia Status: Acute Assessment and Plan: Patient has chronic hypercarbic and hypoxemic respiratory failure from her COPD and is currently on 3 L nasal cannula at rest and 5 L bleed in at night on her home noninvasive ventilator with AVAPS AE mode through [employer]. My last download from 01/25/2023 through 04/24/2023 through [employer].? Patient is on AVAPS AE mode.? Breath rate 20, tidal volume 420, minimal EPAP 5, maximal EPAP 15, minimal pressure support 8, maximal pressure support 15, inspiratory time 2nd, rise time 3, ramp length 20.? % of days with usage greater than or equal to 4 hours is 100%.? Average usage on days used is 9 hours and 34 minutes.? Weekly average ranges for respiratory rate is 20 to 21.? Tidal volume 413 to 428.? Minute ventilation 8.5-9.22.? EPAP pressure 5.6-6.3.? IPAP average 19.1 to 19.5.? Average leak 45-59.??I interpret this download as excellent compliance, adequate pressures and high leak. Patient's last blood gas on BiPAP rate of 20 pressures 16/6 and 50% had 7.29/128/97. The patient was having difficulty with BiPAP and I switched her to an AVAPS mode rate of 20, tidal volume 420, EPAP 6, minimal inspiratory pressure 7, maximal inspiratory pressure 25, inspiratory time 1.2 and rise of 5 which is are slowest. This resulted in tidal volumes of 400, minute ventilation of 9.5 and a peak inspiratory pressure of 20, 45% FiO2 and saturations 96% She said this felt very good and more like her home machine. Plan: I will continue the above AVAPS settings and obtain a blood gas in the morning. I have told the to bring in the patient's home noninvasive ventilator and eventually will try to transition the patient to her home machine. Goal saturations 90-94%. (3) Multiple nodules of lung: Code(s): R91.8 - Other nonspecific abnormal finding of lung field Status: Acute Assessment and Plan: Regarding her pulmonary nodules. Regarding cavitary left upper lobe nodule she was seen the CTS clinic at [facility], Dr. Loera, from note on 10/08/2020: her last CT scan on 10/08/2020 demonstrates a stable cavitary left upper lobe nodule, this is now been stable for over 2 years.? I do not think it requires continued follow-up.? Follow-up p.r.n. 09/20/2022:? Patient with an 84 pack year history of smoking, quit in 2011.? I will order a low-dose screening CT scan. 05/02/23: Patient returned office call, she is not interested in LDCT at this time. Stated this was worked up in past by Dr. Loera with negative result. They will discuss further at visit. 05/11/23:? I have explained to the patient that she should have a yearly low-dose CT scan to look for any new cancer.? She is in agreement and I have placed this order. 08/14/2023: The tells me they were going to get a CT scan of the chest but then the patient developed COVID and this was placed on hold. Plan: Once the patient is stable will obtain CT scan of the chest. (4) COPD (chronic obstructive pulmonary disease): Qualifiers: COPD type: unspecified COPD Qualified Code(s): J44.9 - Chronic obstructive pulmonary disease, unspecified Code(s): J44.9 - Chronic obstructive pulmonary disease, unspecified Status: Acute Assessment and Plan: Gold grade 4 group E COPD Patient followed in the Pulmonary Clinic in last seen on 05/11/2023 and as an inpatient on 08/17/2023 patient with 84 pack year history tobacco use, quit 04/11/2012, FEV1 22% on 07/31/2015, ? DLCO remained moderately decreased when adjusted for alveolar volume, lung volumes were not performed, with severe panlobular emphysema on CT sca
--- NOTE | 2023-09-09 14:23 | PC.NURSE ---
Pt. arrived from IMU 200 into room 302 on 3 Med Surg at 14:20. Pt. oriented to unit's policies and procedures.
--- NOTE | 2023-09-09 14:34 | PC.NURSE ---
This patient, Betsy Villa, was transferred to [[id number]] on 09/09/23 at 1425. Personal belongings sent with patient. Report given to [Olga VALENTINE ]. Appropriate documentation sent with patient.
--- NOTE | 2023-09-09 15:55 | PCPTNOTE ---
attempted eval, pt was in process of moving rooms, will attetmpt at a later time
--- NOTE | 2023-09-09 17:55 | PM.IMPN ---
Progress Note: A&P Assessment and Plan (1) Respiratory failure with hypoxia and hypercapnia: Code(s): J96.91 - Respiratory failure, unspecified with hypoxia; J96.92 - Respiratory failure, unspecified with hypercapnia Status: Acute Assessment and Plan: - CXR: 1. Severe emphysema. 2. Chronic airspace opacities with volume loss in left upper lung zone, consistent with scarring. - no leukocytosis In ED: Inital ABG, initial: pH 7.197, pCO2 146.7, pO2 98.8, HCO3 55.7, O2 sat 94.9 % on 6L NC. 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 continue budesonide and tiotropium. - DC IV steroids as per Pulmonary - no increased sputum production or increased sputum purulence, no evidence of PNA on CXR, no fever. hold on adding abx treatment. Plan Patient with history of end-stage COPD with high carbon dioxide retention ... Slowly improving DC planning home with the without home health care in a.m. if she remains stable and cleared by Pulmonary Home Meds/Chronic Conditions - continue home Fosamax, Xanax, diltiazem, Lexapro, Lasix, spironolactone Diet: Heart healthy GI Prophylaxis: Pantoprazole DVT Prophylaxis: SCDs, Lovenox Lines: Peripheral Code Status: DNR ? Patient seen and examined at bedside during my morning rounds ? Collaborated with patient's nurse at the bedside in detail and addressed all concerns ? Labs, electrolytes, radiology, investigations and test results reviewed ? Consult/Nursing/Ancilliary notes on the chart reviewed and appreciated ? Spoke with patient/family at the bedside and answered all the questions that they had Repeat labs in a.m. Electrolyte replacement as per protocol. Patient will be monitored very closely on the floor. Further recommendations as per the hospital course. Time Spent With Patient Time with patient: 15 - 25 minutes Subjective Date/time seen: 09/09/23 17:55 Interval history: Patient seen and evaluated at bedside after I spoke with Dr. Reyna in detail who is her established pulmonology. She is feeling much better today. Look forward to go home tomorrow. Review of Systems Review of Systems: 14 systems were reviewed with pertinent positives and negatives per HPI. Except as documented in the HPI/progress notes, all other systems were reviewed and are negative. All systems reviewed & are unremarkable except as noted in HPI and below Exam Narrative: PHYSICAL EXAMINATION: Vital signs: Please see the chart General physical exam: Patient lying in bed, high-flow oxygen via nasal cannula in place, pleasant and cooperative with exam Head/eyes: Atraumatic, EOMI, PERRLA ENT: Moist mucous membranes, nasal passages clear Neck: Supple, full range of motion, trachea midline CVS: S1 + S2, regular rate and rhythm, no murmurs Respiratory: Bilaterally poor air entry in both lung alvarez, mild B/L crackles, symmetric chest expansion, + high-flow oxygen via nasal cannula in place Abdomen: Soft, non-tender, bowel sounds +ve, no organomegaly Extremities: No clubbing, no cyanosis, + trace bilateral pitting edema, no calf tenderness Musculoskeletal: Moves all, adequate range of motion, no muscle spasms Skin: Warm, dry, no jaundice, no cyanosis Neurological: Awake, alert, oriented x 3, cranial nerves II-XII intact, no focal neurological deficits Psyc
[2023-09-09] MEDS: BUDESONIDE RESPULE NEB 0.5 MG/2 ML AMP INHALATION (19:52)
[2023-09-09] MEDS: ACETAMINOPHEN 325 MG TABLET 650 MG PO (22:03)
[2023-09-10] VITALS (11 sets, daily range): BP systolic 110; BP diastolic 53; PULSE 63–83; RESP 20–25; TEMP 36.1; O2SAT 92–97
[2023-09-10] MEDS: IPRATROPIUM 0.5 MG/ALBUTEROL SULFATE 2.5 MG AMPUL.NEB 3 ML INHALATION ×4 (00:10→11:16)
[2023-09-10] MEDS: dilTIAZem HCL 60 MG TABLET PO (05:43)
[2023-09-10 06:43] LABS: Hematocrit 32.5 % (37.0-47.0); Hemoglobin 9.5 g/dL (12.0-15.0); Immature Granulocyte Absolute 0.04 K/mm3 (0.00-0.031); Immature Granulocyte Percent A 0.5 % (0-0.5); Lymphocytes Absolute Auto 0.28 K/mm3 (0.9-3.2); Lymphocytes Percent Auto 3.3 % (18.3-44.2); Mean Corpuscular HGB Conc 29.2 g/dl (32-36); Mean Corpuscular Volume 109.4 fl (80-100); Mean Platelet Volume 11.4 fl (7.4-10.4); Monocytes Absolute Auto 0.8 K/mm3 (0.1-0.6); Monocytes Percent Auto 8.9 % (2.6-8.5); Neutrophils Absolute Auto 7.4 K/mm3 (1.3-6.7); Neutrophils Percent Auto 87.3 % (45.5-73.1); Platelet Count Result 188 k/mm3 (150-375); Red Blood Count 2.97 M/mm3 (4.2-5.4); Red Cell Distribution Width 11.6 % (11.5-14.5); White Blood Count 8.5 K/mm3 (4.5-10.0)
[2023-09-10 07:08] LABS: Blood Urea Nitrogen 33 mg/dL (7-17); Calcium 9.5 mg/dL (8.4-10.2); Carbon Dioxide > 40 mmol/L (22-30); Chloride 81 mmol/L (98-107); Estimated CRCL calculation 42 ml/min; Estimated Glomerular Filt Rate > 60; Glucose 131 mg/dL (65-110); Potassium 3.7 mmol/L (3.4-5.0); Sodium 136 mmol/L (137-145)
[2023-09-10] MEDS: BUDESONIDE RESPULE NEB 0.5 MG/2 ML AMP INHALATION (07:08)
[2023-09-10 07:30] LABS: Hypochromasia 1+; Platelet Estimate Adequate (Adequate); Schistocytes None Seen; Stomatocytes 1+
--- NOTE | 2023-09-10 08:08 | PM.PNPUL ---
Progress Note: A&P Assessment and Plan (1) COPD (chronic obstructive pulmonary disease): Qualifiers: COPD type: unspecified COPD Qualified Code(s): J44.9 - Chronic obstructive pulmonary disease, unspecified Code(s): J44.9 - Chronic obstructive pulmonary disease, unspecified Status: Acute Assessment and Plan: Gold grade 4 group E COPD Patient followed in the Pulmonary Clinic in last seen on 05/11/2023 and as an inpatient on 08/17/2023 patient with 84 pack year history tobacco use, quit 04/11/2012, FEV1 22% on 07/31/2015, ? DLCO remained moderately decreased when adjusted for alveolar volume, lung volumes were not performed, with severe panlobular emphysema on CT scan.? She was using 3 L with rest, 6 with exertion. She was wearing a noninvasive trilogy every night with sleep since 2017. AVAPS EA mode with respiratory rate is 20, tidal volume 420, EPAP minimum 5, EPAP maximum 15, pressure support minimum 8, pressure support maximum 15, maximum pressure 30, rise time 3, ramp length 20. She wears 5 L NC under the mask. She was using Brovana nebs b.i.d., Spiriva Handy haler q.day and levalbuterol once daily in the morning.? Budesonide was added back 06/29/2021.? In early June patient developed COVID and had respiratory tract infection symptoms.? She required a temporary increased from 3 L during the day to 4 L during the day.? She took Paxil of it for 5 days and tells me she made a complete recovery.? The also had COVID and took Paxlovid. 08/14/2023 through 08/17/2023: Patient admitted to [facility] with COPD exacerbation with acute on chronic hypercarbic and hypoxemic respiratory failure. Patient discharged on prednisone X 1 day, Brovana, Spiriva Respimat, rescue albuterol, noninvasive ventilator When patient naps or sleeps noninvasive ventilation through via med with AVAPS AE with a breath rate of 18, tidal volume 420, minimum EPAP 5, maximum EPAP 15, minimum pressure support 8, maximum pressure support 15, total maximum pressure 30, rise time 3 and 4 L NC under mask. Patient had an overnight oximetry on these settings with recording duration of 8 hours and 13 minutes.? Average saturation 99%.? Low saturation 91%.? Time with saturation less than or equal to 88% was 0 minutes.? Oxygen desaturation index was 0.4.? Patient had an ABG prior to removal of the mass with a pH of 7. 4 /138. Oxygen on 2 L at rest and 5 with activity per home O2 assessment. The patient and family did discuss hospice care with a coordinator but at this time felt they were not ready for hospice care. Patient was discharged home and completed her prednisone in was in her usual state of health. On 09/02/2023 the patient had jerking episodes of her head that would occur approximately 10 times an hour. She also had jerking of her hands. Her oxygen and breathing remains stable. When she would jerk her head she was awake these would last 1-2 seconds, she had no associated neurologic deficits, no cardiac issues. Patient was in her usual state of health on 09/05 throughout the day and night and was placed on her home noninvasive ventilator by her . The patient woke up that evening to go to the bathroom in the took the mask off and the patient was wearing her normal 4 L under the mask and when he took the mask off she read immediately desaturated to 68%. As directed he increase the oxygen to 5 L for her to walk to the bathroom and her saturations increased to 97%. Patient got back in bed and he put the mask on and decreased her to 4 L and her saturations decreased to 82%. 09/07/23: Patient brought to the emergency room and saturations were 96% on 4 L nasal cannula. Patient was treated for possible COPD exacerbation with Solu-Medrol, bronchodilators and noninvasive ventilation. COVID, influenza, RSV RT PCR studies negative. 09/09/23: Currently the patient states that she is breathing back to her baseline. She is c
[2023-09-10] MEDS: PANTOPRAZOLE SODIUM IV 40 MG VIAL IV PUSH (08:47)
[2023-09-10] MEDS: SPIRONOLACTONE 25 MG TABLET PO (08:47)
[2023-09-10] MEDS: ENOXAPARIN 30 MG/0.3 ML SYRINGE SUB-Q (08:47)
[2023-09-10] MEDS: FUROSEMIDE 20 MG TABLET PO (08:47)
[2023-09-10] MEDS: ESCITALOPRAM OXALATE 10 MG TABLET PO (08:47)
--- NOTE | 2023-09-10 11:39 | PM.DS ---
DS: Admitting Diagnosis Discharge Date 09/10/2023: Admitting Diagnosis (1) Respiratory failure with hypoxia and hypercapnia: ?Code(s): J96.91 - Respiratory failure, unspecified with hypoxia; J96.92 - Respiratory failure, unspecified with hypercapnia ?Status:?Acute ?Assessment and Plan: - CXR: 1. Severe emphysema. 2. Chronic airspace opacities with volume loss in left upper lung zone, consistent with scarring. - no leukocytosis - ABG, initial:? pH 7.197, pCO2 146.7, pO2 98.8, HCO3 55.7, O2 sat 94.9 % on 6L NC. -> Placed on BiPAP - ABG, repeat post-BiPAP:? pH 7.280, pCO2 110.8, pO2 54.2, HCO3 50.9, O2 sat 80.7 % on BiPAP. -> Rate increased. - ABG, repeat:? pH 7.291, pCO2 104.7, pO2 91.1, HCO3 49.3, O2 sat 95.3% on BiPAP. - trend ABG Q6H x3 - duonebs Q6H KYA - steroids - consult to pulmonology, awaiting recs. - monitor daily labs (2) COPD (chronic obstructive pulmonary disease): ?Qualifiers: ?COPD type:?unspecified COPD? Qualified Code(s):?J44.9 - Chronic obstructive pulmonary disease, unspecified ?Code(s): J44.9 - Chronic obstructive pulmonary disease, unspecified ?Status:?Acute ?Assessment and Plan: - see above - duonebs Q6H KYA - Brovana not available, sub to salmeterol. continue budesonide and tiotropium. - methylprednisolone 125 mg x1, then 60 mg IVP daily x4 days for total of 5 doses of steroids. consider extending or increasing based off patient response. - no increased sputum production or increased sputum purulence, no evidence of PNA on CXR, no fever. hold on adding abx treatment. DS: Discharge Diagnosis Discharge Diagnosis (1) COPD (chronic obstructive pulmonary disease): Qualifiers: COPD type: unspecified COPD Qualified Code(s): J44.9 - Chronic obstructive pulmonary disease, unspecified Code(s): J44.9 - Chronic obstructive pulmonary disease, unspecified Status: Acute (2) Respiratory failure with hypoxia and hypercapnia: Code(s): J96.91 - Respiratory failure, unspecified with hypoxia; J96.92 - Respiratory failure, unspecified with hypercapnia Status: Acute (3) Syncope: Code(s): R55 - Syncope and collapse Status: Acute (4) Respiratory failure: Code(s): J96.90 - Respiratory failure, unspecified, unspecified whether with hypoxia or hypercapnia Status: Acute (5) Macrocytic anemia: Code(s): D53.9 - Nutritional anemia, unspecified Status: Acute (6) Acute and chronic respiratory failure with hypercapnia: Code(s): J96.22 - Acute and chronic respiratory failure with hypercapnia Status: Acute (7) COPD exacerbation: Code(s): J44.1 - Chronic obstructive pulmonary disease with (acute) exacerbation Status: Acute (8) Low blood pressure reading: Code(s): R03.1 - Nonspecific low blood-pressure reading Status: Acute (9) Chronic respiratory failure: Qualifiers: Respiratory failure complication: hypoxia and hypercapnia Qualified Code(s): J96.11 - Chronic respiratory failure with hypoxia; J96.12 - Chronic respiratory failure with hypercapnia Code(s): J96.10 - Chronic respiratory failure, unspecified whether with hypoxia or hypercapnia Status: Acute (10) Multiple nodules of lung: Code(s): R91.8 - Other nonspecific abnormal finding of lung field Status: Acute DS: Summary Hospital Course Reason for hospitalization: Patient admitted with shortness of breath Hospital Course: H&P: HPI History of Present Illness Date/Time: 09/07/23? 19:29 Chief Complaint: SOB Narrative: 73 y/o F presents here with SOB with PMH of COPD, respiratory failure, pulmonary hypertension, and anxiety.? NATHANAEL?? On BiPAP at night. Patient presented here for evaluation of shortness of breath.? Majority of HPI obtained through 's input with patient's permission and chart review. Per , the patient has been worsening over the last week, but acutely worsen
== END 2023-09-10 13:20 | disposition home health service (06) | DRG 189 ==
LOC: ANHED 11:33 → ANHIMU 14:24 → ANH3MEDSUR 09-09 13:56
PROVIDERS: Student in an Organized Health Care Education/Training Program; Admitting Provider General Practice; Emergency Provider Emergency Medicine; PCP Internal Medicine; Visit Provider Family Medicine
DX: J96.21 Acute and chronic respiratory failure with hypoxia (principal); J44.1 Chronic obstructive pulmonary disease with (acute) exacerbation; J96.22 Acute and chronic respiratory failure with hypercapnia; R91.8 Other nonspecific abnormal finding of lung field; I10 Essential (primary) hypertension; F41.9 Anxiety disorder, unspecified; D64.9 Anemia, unspecified; Z66 Do not resuscitate; Z20.822 Contact with and (suspected) exposure to COVID-19; Z87.891 Personal history of nicotine dependence; Z86.16 Personal history of COVID-19
CPT/HCPCS: 36415; 36600; 71045; 80048; 80053; 82375; 82805; 83050; 83605; 83735; 84100; 85025; 85055; 85380; 87637; 93005; 94002; 94003; 94640; 97162; 97166; 97530; 99291; A9270; C9113; G0378; J1650; J2930

== ENCOUNTER 2023-09-23 19:12 | Inpatient (IN) | payer MEDICARE, BC, SELFPAY ==
[2023-09-23] VITALS (14 sets, daily range): BP systolic 90–129; BP diastolic 54–81; PULSE 86–105; RESP 18–32; TEMP 36.5; O2SAT 77–100
--- NOTE | ~2023-09-23 | XR_ITS ---
EXAMINATION: XR chest 1V portable DATE: 09/23/2023 20:01 INDICATION: Hypoxia. TECHNIQUE: A single frontal view of the chest was obtained. COMPARISON: Chest single view 09/07/2023, chest CT 08/15/2023 FINDINGS: There are lucencies in the lungs, consistent with emphysema. There is scarring in left lung upper lobe. No pleural effusion or pneumothorax. The heart size is normal. IMPRESSION: 1. Severe emphysema. 2. Scarring in left lung upper lobe. Reviewed, dictated and finalized at location [facility].
--- NOTE | ~2023-09-23 | CT_ITS ---
EXAMINATION: CTA chest PE protocol DATE: 09/23/2023 23:55 INDICATION: Shortness of breath. Hypoxia. Elevated d-dimer. TECHNIQUE: Computed tomography angiography (CTA) of the chest was performed with 100 mL Omnipaque-350 intravenous contrast timed to evaluate the pulmonary arteries. Coronal maximum intensity projection 3D-reconstructions were created by the technologist. Automated exposure control and iterative reconst ruction technique were employed. Exam dose: 156.95 mGy-cm total exam DLP. COMPARISON: 09/23/2023 portable AP chest 08/15/2023 CT pulmonary scan FINDINGS: There is diagnostic contrast enhancement of the pulmonary arteries and no evidence of pulmo nary embolism. No thoracic aortic aneurysm or dissection. There is atherosclerotic calcification of the thoracic and abdominal aortic, great vessels. No hilar or mediastinal mass lesion or lymphadenopathy. Normal heart size. No pericardial or pleural effusion. No evidence of adrenal mass lesion. Prominent left apical scarring; there is any concern for possible recurrent or residual malignancy, c onsider PET/CT imaging. Severe centrilobular emphysema is noted throughout the lungs. Old healed right rib fractures. Severe degenerative disc disease in the lower cervical spine. Numerous compression fracture deformiti es of the thoracic and included lumbar spine. Diffuse osteopenia. IMPRESSION: No evidence of pulmonary embolism Severe centrilobular emphysema Prominent scarring, left upper lobe; if there is concern for possible new or recurrent pulmonary ethan gnancy, consider PET/CT imaging Reviewed, dictated and finalized at Location [facility]. Reviewed, dictated and finalized at location A. IMPRESSION: No evidence of pulmonary embolism Severe centrilobular emphysema Prominent scarring, left upper lobe; if there is concern for possible new or re current pulmonary malignancy, consider PET/CT imaging
--- NOTE | 2023-09-23 19:13 | ED.SOB ---
HPI - SOB/Dyspnea General Chief Complaint: Shortness of Breath/Dyspnea Stated Complaint: sob Source: patient and EMS Mode of arrival: EMS Limitations: no limitations History of Present Illness HPI Narrative: 73-year-old female presents via EMS. She has a history of COPD and uses CPAP while sleeping and 3-3-1/2 L supplemental oxygen via nasal cannula throughout the day. She was taking a nap earlier today and was on CPAP. When she awoke she placed herself back on her 3 L via nasal cannula but was hypoxic. EMS placed her on CPAP but she was still saturating 80s to 85%. While transferring her to the stretcher they note that she became unresponsive and was nearly apneic 45s but this did subsequently resolve. She has received 10 of Decadron and a DuoNeb. Patient denies any recent cough or fevers. 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 She states she uses inhalers at home. She denies any shortness of breath / dyspnea. No chest pain. I did ask if she would want to be intubated if need be and she states no initially but states that her is en route. Related Data Home Medications Medication Instructions Recorded Confirmed tiotropium bromide 2.5 2 inhalation inhalation QAM 09/30/19 09/24/23 mcg/actuation mist for inhalation (Spiriva Respimat) escitalopram oxalate 10 mg tablet 10 mg PO DAILY 04/10/20 09/24/23 furosemide 20 mg tablet 20 mg PO QAM 04/10/20 09/24/23 spironolactone 25 mg tablet 25 mg PO DAILY 04/10/20 09/24/23 alendronate 70 mg tablet 70 mg PO WEEKLY 08/15/23 09/24/23 alprazolam 0.25 mg tablet 0.25 mg PO HS PRN Anxiety 08/16/23 09/24/23 diltiazem HCl 60 mg tablet 60 mg PO TID 09/24/23 09/24/23 Allergies Allergy/AdvReac Type Severity Reaction Status Date / Time No Known Allergies Allergy Unverified 09/07/23 10:57 [facility] Past Medical History Medical History Anxiety COPD (chronic obstructive pulmonary disease) Multiple nodules of lung Pulmonary hypertension Respiratory failure Family History Family History Sibling Family history of malignant neoplasm Carcinoma of colon Social History Social History Smoking packs per day: 2 Smoking cigarettes per day: 40.0 Years smoked: 30 Smoking pack-years: 60.00 Smoking status: Former smoker Tobacco type: cigarettes Smoking end date: 04/11/12 Alcohol intake: former Drinks per week: 2 Substance use: never Do You Feel Safe in your Home?: Yes Lack of Transportation: No Lack of Food: Never True Current Housing: I Have Housing Concerned About Future Housing: No Difficulty Paying Gas/Electric Bills: No Difficulty Paying for Meds: No Currently Unemployed: No Education: High School Diploma/GED Difficulty w/ Childcare or Family Care: No Spiritual care concerns: No Exam Narrative: GENERAL: Well-appearing, well-nourished HEAD: Normocephalic, atraumatic. EYES: Non injected, non icteric ENT: Nares clear, no rhinorrhea or epistaxis. NECK: Supple. CHEST: Clear to auscultation without appreciable wheezes but poor air movement. Tachypneic. Poor seal initially on CPAP. Speaking in multiple word sentences. HEART: Tachypneic. rate and rhythm. . ABDOMEN: Soft, nondistended. EXTREMITIES: Normal range of motion. No edema. SKIN: Warm, dry, no rash. NEURO: No focal deficits. Alert and oriented . PSYCH: Normal mood and affect. Course Vital Signs Vital signs: Vital Signs Pulse Rate 105 H 09/23/23 19:09 Respiratory Rate 32 H 09/23/23 19:09 Blood Pressure 125/68 09/23/23 19:09 Pulse Oximetry 77 L 09/23/23 19:09 Oxygen Delivery CPAP 09/23/23 19:09 Temperature 97.2 F L 09/25/23 04:24 Pulse Rate 93 09/25/23 07:46 Respiratory Rate 20 09/25/23 07:46 Blood Pressure 119/55 L 09/25/23 04:24 Pulse Oximetry
--- NOTE | 2023-09-23 19:14 | ECG_ITS ---
Measurements Intervals [place] Rate: 90 P: 72 KS: 127 QRS: 74 QRSD: 88 T: 61 QT: 330 QTc: 406 Interpretive Statements SINUS RHYTHM NORMAL ECG COMPARED TO ECG 09/07/2023 11:09:35 NO SIGNIFICANT CHANGES Electronically Signed On 09-23-2023 21:10:33 CDT by Narinder Myers D.O.
[2023-09-23 19:37] LABS: Basophils Percent Auto 0.2 % (0.2-1.2); Eosinophils Percent Auto 0.4 % (0-4.4); Hematocrit 32.1 % (37.0-47.0); Hemoglobin 9.2 g/dL (12.0-15.0); Immature Granulocyte Absolute 0.04 K/mm3 (0.00-0.031); Immature Granulocyte Percent A 0.4 % (0-0.5); Lymphocytes Absolute Auto 0.82 K/mm3 (0.9-3.2); Mean Corpuscular HGB Conc 28.7 g/dl (32-36); Mean Corpuscular Hemoglobin 32.1 pg (26-34); Mean Corpuscular Volume 111.8 fl (80-100); Mean Platelet Volume 10.6 fl (7.4-10.4); Monocytes Percent Auto 9.6 % (2.6-8.5); Neutrophils Absolute Auto 8.3 K/mm3 (1.3-6.7); Neutrophils Percent Auto 81.4 % (45.5-73.1); Platelet Count Result 165 k/mm3 (150-375); Red Blood Count 2.87 M/mm3 (4.2-5.4); Red Cell Distribution Width 11.6 % (11.5-14.5); White Blood Count 10.2 K/mm3 (4.5-10.0)
[2023-09-23 19:51] LABS: Alanine Aminotransferase 15 U/L (6-35); Alkaline Phosphatase 74 U/L (38-126); Aspartate Amino Transferase 25 U/L (14-36); Bilirubin,Total 0.5 mg/dL (0.2-1.3); Blood Urea Nitrogen 21 mg/dL (7-17); Calcium 9.5 mg/dL (8.4-10.2); Carbon Dioxide > 40 mmol/L (22-30); Chloride 82 mmol/L (98-107); Estimated Glomerular Filt Rate > 60; Glucose 131 mg/dL (65-110); Magnesium 2.2 mg/dL (1.6-2.3); Potassium 4.1 mmol/L (3.4-5.0); Sodium 138 mmol/L (137-145)
[2023-09-23] MEDS: ALBUTEROL SULFATE NEB 2.5 MG/3 ML INH INHALATION ×3 (19:56→21:11)
[2023-09-23 20:01] LABS: Base Excess ABG 35.8 mEq/l (+/-2.0); Fractional Inspired Oxygen 60 %; HCO3 ABG 73.3 mEq/l (22.0-26.0); Oxygen Content ABG 18.3 %vol (16.0-22.0); Oxygen Saturation ABG 98.6 % (95.0-100.0); Oxyhemoglobin 96.9 % THb (90.0-100.0); PO2 ABG 173.9 mmHg (80.0-100.0); Total Hemoglobin 13.2 g/dL (12.0-18.0)
[2023-09-23] MEDS: MAGNESIUM SULF 2 GM/WATER 50ML 2 GM/50 ML BAG IVPB (20:01)
[2023-09-23 20:03] LABS: PCO2 ABG 180.8 mmHg (35.0-45.0); pH ABG 7.226 (7.350-7.450)
[2023-09-23 20:04] LABS: Device BIPAP; Modified Allen's Test Pass; Site Drawn LEFT RADIAL
[2023-09-23 20:05] LABS: Expiratory Pressure 7 cmH2O; Inspiratory Pressure 12 cmH2O
[2023-09-23 20:14] LABS: Influenza A QL RT-PCR Negative (Negative); Influenza B QL RT-PCR Negative (Negative); RSV RNA, RT-PCR Negative (Negative); SARS-CoV-2 RNA PCR Negative (Negative)
[2023-09-23] MEDS: IPRATROPIUM 0.5 MG/ALBUTEROL SULFATE 2.5 MG AMPUL.NEB 3 ML INHALATION ×3 (20:15→21:12)
[2023-09-23 20:18] LABS: D Dimer 0.62 ug/mL (<0.48)
--- NOTE | 2023-09-23 23:15 | PC.NURSE ---
this rn assumed care of patient. this rn took patient report from SERGE Ferrer.
[2023-09-23 23:22] LABS: Alveolar/Arterial O2 Gradient 94.9 mmHg; Base Excess ABG 24.2 mEq/l (+/-2.0); Fractional Inspired Oxygen 40 %; HCO3 ABG 55.7 mEq/l (22.0-26.0); Oxygen Content ABG 15.8 %vol (16.0-22.0); Oxygen Saturation ABG 90.7 % (95.0-100.0); Oxyhemoglobin 90.9 % THb (90.0-100.0); PO2 ABG 68.1 mmHg (80.0-100.0); Total Hemoglobin 12.3 g/dL (12.0-18.0); pH ABG 7.337 (7.350-7.450)
[2023-09-23 23:25] LABS: Device BIPAP; Modified Allen's Test Pass; PCO2 ABG 106.3 mmHg (35.0-45.0); Site Drawn RIGHT RADIAL
[2023-09-23 23:26] LABS: Expiratory Pressure 6 cmH2O; Inspiratory Pressure 20 cmH2O
[2023-09-24] VITALS (45 sets, daily range): BP systolic 90–139; BP diastolic 50–72; PULSE 78–104; RESP 14–32; TEMP 36.5–37.2; O2SAT 92–99; BMI 20.8
[2023-09-24] MEDS: SODIUM CHLORIDE 0.9% IV 1,000 ML 999 ML IV CONT (02:15)
[2023-09-24] MEDS: methylPREDNISolone SOD SUCC 40 MG VIAL IV PUSH (05:04)
[2023-09-24 05:05] LABS: Alveolar/Arterial O2 Gradient 106.7 mmHg; Base Excess ABG 20.3 mEq/l (+/-2.0); Carboxyhemoglobin 0.3 % THb (0-2.0); Fractional Inspired Oxygen 40 %; HCO3 ABG 48.7 mEq/l (22.0-26.0); Methemoglobin ABG 0.1 %THb (0-1.5); Oxygen Content ABG 13.4 %vol (16.0-22.0); Oxygen Saturation ABG 95.4 % (95.0-100.0); Oxyhemoglobin 95.2 % THb (90.0-100.0); PO2 ABG 83.3 mmHg (80.0-100.0); PO2 FiO2 Ratio Arterial Blood 2.08 %; Reduced Hemoglobin 4.4 %THb (0-5.0); Total Hemoglobin 9.9 g/dL (12.0-18.0); pH ABG 7.387 (7.350-7.450)
[2023-09-24 05:06] LABS: Modified Allen's Test Pass; PCO2 ABG 82.8 mmHg (35.0-45.0); Site Drawn RIGHT RADIAL
[2023-09-24 05:07] LABS: Device NON-INVASIVE VENT
[2023-09-24 05:09] LABS: Non-Invasive Expiratory Pressure 5 CMH2O; Non-Invasive Vent Rate 20 /MIN
--- NOTE | 2023-09-24 07:28 | PM.IMHP ---
H&P: HPI History of Present Illness Date/Time: 09/24/23 07:28 Chief Complaint: Shortness of breath Narrative: Patient poor historian, history is taken from patient's daughter 73 years old lady with history of emphysema, hypertension, anxiety, NATHANAEL on CPAP, chronic respiratory failure diastolic heart failure follow echocardiogram August 17, 2001 brought to ED via EMS because of shortness breath. Patient has worsening shortness of breaths yesterday, patient use oxygen 3 liter/minutes, and patient still had hypoxemia pulse ox about 80s. And patient was noticed somnolent. EMS was called, patient was placed on CPAP. When patient was transferred, patient was found apneic about 45 seconds and patient was unresponsive patient was brought to ED for evaluation. Upon arrival in the ED, patient was afebrile, blood pressure stable, but had tachycardia tachypnea, ABG showed decompensated respiratory acidosis with CO2 retention, pH 7.226, pCO2 180, PO2 170s 3, bicarb 73.3 In the ED, patient declined intubation. Patient was placed on BiPAP, repeated ABG suggested improving of CO2 retention, pH 7.387, pCO2 82.8. Patient also found have leukocytosis 10,200 with left shift, x-ray shows severe emphysema. Flu negative,, negative, CTA showed no PE, report is pending Review of Systems Review of Systems: Patient is a poor historian, I am unable to review of system completely except above in H and P PMFSH Past Medical History Medical History Anxiety COPD (chronic obstructive pulmonary disease) Multiple nodules of lung Pulmonary hypertension Respiratory failure Family History Family History Sibling Family history of malignant neoplasm Carcinoma of colon Social History Social History Smoking packs per day: 2 Smoking cigarettes per day: 40.0 Years smoked: 30 Smoking pack-years: 60.00 Smoking status: Former smoker Tobacco type: cigarettes Smoking end date: 04/11/12 Alcohol intake: former Drinks per week: 2 Substance use: never Do You Feel Safe in your Home?: Yes Lack of Transportation: No Lack of Food: Never True Current Housing: I Have Housing Concerned About Future Housing: No Difficulty Paying Gas/Electric Bills: No Difficulty Paying for Meds: No Currently Unemployed: No Education: High School Diploma/GED Difficulty w/ Childcare or Family Care: No Spiritual care concerns: No Meds Home Medications and Allergies Home Medications Medication Instructions Recorded Confirmed Type tiotropium bromide 2.5 2 inhalation inhalation QAM 09/30/19 09/24/23 History mcg/actuation mist for inhalation (Spiriva Respimat) escitalopram oxalate 10 mg tablet 10 mg PO DAILY 04/10/20 09/24/23 History furosemide 20 mg tablet 20 mg PO QAM 04/10/20 09/24/23 History spironolactone 25 mg tablet 25 mg PO DAILY 04/10/20 09/24/23 History arformoterol 15 mcg/2 mL solution See Rx Instructions .Route 06/19/23 09/24/23 Rx for nebulization .COMPLEX #120 mL alendronate 70 mg tablet 70 mg PO WEEKLY 08/15/23 09/24/23 History alprazolam 0.25 mg tablet 0.25 mg PO HS PRN Anxiety 08/16/23 09/24/23 History albuterol sulfate 90 mcg/actuation 2 puff inhalation QID PRN 08/17/23 09/24/23 Rx aerosol inhaler shortness of breath or wheezing #8.5 grams budesonide 0.5 mg/2 mL suspension 0.5 mg (2 mL) inhalation Q12HRT 09/10/23 09/24/23 Rx for nebulization (Pulmicort) #30 mL diltiazem HCl 60 mg tablet 60 mg PO TID 09/24/23 09/24/23 History Allergies Allergy/AdvReac Type Severity Reaction Status Date / Time No Known Allergies Allergy Unverified 09/07/23 10:57 Vital Signs Vital Signs - 24 hr 09/23/23 19:09 09/23/23 19:24 09/23/23 19:24 Temperature 97.7 F Pulse Rate 105 H 96 Respiratory Rate 32 H 18 Blood Pressure 125/68 12
[2023-09-24] MEDS: IPRATROPIUM 0.5 MG/ALBUTEROL SULFATE 2.5 MG AMPUL.NEB 3 ML INHALATION ×3 (08:00→20:18)
[2023-09-24 08:38] LABS: Immature Reticulocyte Fraction 8.4 % (3.0-15.9); Reticulocyte Hemoglobin Conten 32.4 pg (28.2-36.6); Reticulocyte Percent 1.09 % (0.7-4.3); Reticulocytes Absolute 0.03 10^6/uL (0.02-0.10)
[2023-09-24] MEDS: DOXYCYCLINE HYCLATE 100 MG TABLET PO ×2 (08:47→21:07)
[2023-09-24] MEDS: FUROSEMIDE 20 MG TABLET PO (08:47)
[2023-09-24] MEDS: ENOXAPARIN 40 MG/0.4 ML SYRINGE SUB-Q (08:48)
[2023-09-24] MEDS: dilTIAZem HCL 60 MG TABLET PO ×3 (08:48→21:07)
[2023-09-24] MEDS: SPIRONOLACTONE 25 MG TABLET PO (08:48)
[2023-09-24 09:11] LABS: Iron 56 ug/dL (37-170)
[2023-09-24 09:21] LABS: Percent Iron Saturation 20 % (20-50)
[2023-09-24] MEDS: BUDESONIDE RESPULE NEB 0.5 MG/2 ML AMP INHALATION ×2 (09:31→20:18)
--- NOTE | 2023-09-24 12:50 | PM.CNPUL ---
Assessment and Plan Assessment and plan (1) Acute respiratory failure with hypoxia and hypercarbia: Code(s): J96.01 - Acute respiratory failure with hypoxia; J96.02 - Acute respiratory failure with hypercapnia Status: Acute (2) COPD (chronic obstructive pulmonary disease): Qualifiers: COPD type: unspecified COPD Qualified Code(s): J44.9 - Chronic obstructive pulmonary disease, unspecified Code(s): J44.9 - Chronic obstructive pulmonary disease, unspecified Status: Acute (3) Acute on chronic respiratory failure with hypoxia and hypercapnia: Code(s): J96.21 - Acute and chronic respiratory failure with hypoxia; J96.22 - Acute and chronic respiratory failure with hypercapnia Status: Acute (4) End stage COPD: Code(s): J44.9 - Chronic obstructive pulmonary disease, unspecified Status: Acute Plan AVAPS settings Tidal volume 420 Minimum pressure 6 Maximum pressure 25 AVAPS EPAP 5 AVAPS rate 20 AVAPS I-time 1 AVAPS tries 3 AVAPS FiO2 40% Wean O2 per guidelines will bring Trilogy frome home to make adjustments as needed She recently had changes made per Darrian from [facility] after discussing with Dr Reyna No evidence of infection or COPD exacerbation Serologies are all negative, she did not have increasing cough, sputum production or shortness of breath History of Present Illness History of Present Illness Consult date: 10/16/23 Requesting physician: Bee Urban MD Chief complaint: Hypercarbic Hypoxic Resp Failure on BIPAP Narrative: pt was seen September 23 at 12:30 pm Room 203 NEW: Betsy Villa is 73 year old, was here earlier in August and at the end of July for similar issues. History is provided by her daughter Nancy and Irving. She went to bed around 10:00 a.m. on Monday night, and on Monday was not awake at the normal time. She were Trilogy until about 12 noon. Her saturation was lower on her usual amount of oxygen which is 2-3 L at rest and 5-6 L with exertion and sleep. She was confused, was saying similar things over and over, she recently had an adjustment in her trilogy machine by Darrian from her [employer]. She required more time on her Trilogy. Her decided to call an ambulance and yet she was able to object to this, was not completely lethargic. Her CTA of the chest showed no pulmonary embolism, no new infiltrates, scarring in the left upper lobe which may be stable. Her last admission August her CO2 was as high as 141. This admission her CO2 was 180, with AVAPS use and lower oxygen flow her pCO2 is now 82.8 and her pH is compensated. Her serum bicarb was as elevated as well. She has chronic and acute respiratory acidosis with metabolic compensation. She had some recent adjustments on her trilogy device by Darrian SOUZA from her [employer]. Had increased C02 at home, jerking with lower O2 saturation, 83% on Monday while on on her trilogy with 5 L of oxygen. Her family turn the oxygen up due to the low saturation. There was no increased cough, secretions, wheezing, any infectious symptoms such as fever, sore throat aches and pains. She was less responsive, would open eyes however was not staying awake; needing to be on Trilogy for longer episodes. DATA * 09/24/2023 CTA No evidence of pulmonary embolism Severe centrilobular emphysema Prominent scarring, left upper lobe; if there is concern for possible new or recurrent pulmonary malignancy, consider PET/CT imaging New pulmonary consult 09/09/[address] Reyna; COPD with home chronic hypercarbic and hypoxemic respiratory failure. Patient with GOLD grade 4 group E COPD. ? Followed in the Pulmonary Clinic by myself. Patient with 84 pack year history tobacco use, quit 04/11/2012, FEV1 22% on 07/31/2015, ? DLCO remained moderately decreased when adjusted for alveolar volume, lung volumes were not
[2023-09-24] MEDS: methylPREDNISolone SOD SUCC 125 MG VIAL 60 MG IV PUSH ×3 (13:12→23:51)
[2023-09-25] VITALS (26 sets, daily range): BP systolic 102–133; BP diastolic 53–65; PULSE 78–104; RESP 20–24; TEMP 36.2–36.5; O2SAT 90–99
[2023-09-25] MEDS: IPRATROPIUM 0.5 MG/ALBUTEROL SULFATE 2.5 MG AMPUL.NEB 3 ML INHALATION ×4 (01:51→19:29)
[2023-09-25] MEDS: dilTIAZem HCL 60 MG TABLET PO ×3 (07:10→21:24)
[2023-09-25] MEDS: methylPREDNISolone SOD SUCC 125 MG VIAL 60 MG IV PUSH ×2 (07:10→13:10)
[2023-09-25] MEDS: UMECLIDINIUM BROMIDE 62.5 MCG ELLIPTA 1 PUFF INHALATION (07:30)
[2023-09-25] MEDS: BUDESONIDE RESPULE NEB 0.5 MG/2 ML AMP INHALATION ×2 (07:30→19:30)
[2023-09-25] MEDS: DOXYCYCLINE HYCLATE 100 MG TABLET PO (09:05)
[2023-09-25] MEDS: FUROSEMIDE 20 MG TABLET PO (09:05)
[2023-09-25] MEDS: SPIRONOLACTONE 25 MG TABLET PO (09:05)
[2023-09-25] MEDS: ENOXAPARIN 40 MG/0.4 ML SYRINGE SUB-Q (09:05)
--- NOTE | 2023-09-25 09:34 | PM.IMPN ---
Progress Note: A&P Assessment and Plan (1) COPD exacerbation: Code(s): J44.1 - Chronic obstructive pulmonary disease with (acute) exacerbation Status: Acute (2) Acute and chronic respiratory failure with hypercapnia: Code(s): J96.22 - Acute and chronic respiratory failure with hypercapnia Status: Acute (3) Chronic anemia: Code(s): D64.9 - Anemia, unspecified Status: Acute (4) Essential hypertension: Code(s): I10 - Essential (primary) hypertension Status: Acute (5) Diastolic heart failure: Code(s): I50.30 - Unspecified diastolic (congestive) heart failure Status: Acute Plan COPD exacerbation, acute on chronic respiratory failure with hypercapnia Patient has worsening shortness breath, ABG showed respiratory failure with CO2 retention and compensated respiratory acidosis Flu test and COVID test are negative Chest x-ray shows severe emphysema CTA shows no PE, pending report Chronic patient's on BiPAP Continue DuoNeb scheduled q.6 hours, albuterol nebulizer q.4 hours as needed, increase methylprednisolone to 60 mg q.6 hour Start doxycycline 100 mg q.8 hours p.o. Continue home medication. Pulmicort and Spiriva ABG p.r.n. Consult hot mill tin roller for evaluation treatment 09/24: CO2 retention is improving. Appreciate pulmonary consultation, management per hot mill tin roller's plan Diastolic heart failure Compensated Continue furosemide 20 mg daily p.o., spironolactone 25 mg daily p.o. Essential hypertension Continue Cardizem 60 mg t.i.d. p.o. Chronic anemia No obvious bleeding Follow-up stool guaiac, reticulocyte, ferritin iron panel Anxiety Continue Lexapro and Xanax p.o. Severe Subjective Date/time seen: 09/25/23 09:34 Interval history: I saw and examined the patient today, patient feels better, appetite is improving, CO2 retention is improving. Patient denies chest pain, abdomen pain, nausea vomiting diarrhea. Patient is afebrile, blood pressure stable, patient needs 30 L oxygen during the daytime Exam Narrative: GENERAL: Somewhat respiratory distress, - EYES: EOMI. Anicteric. - HENT: Moist mucous membranes. - LUNGS: Decreased air entry bilaterally, improving, tachypnea persists, - CARDIOVASCULAR: Regular rate and rhythm. No murmur. No JVD. Tachycardia - ABDOMEN: Soft, non-tender and non-distended. No palpable masses. - EXTREMITIES: No edema. Peripheral pulses 2+. Non-tender. - NEUROLOGIC: No focal neurological deficits. CN II-XII grossly intact. - PSYCHIATRIC: Awake, Alert and oriented x 3. Appropriate mood and affect. - SKIN: No rashes or lesions. Warm. - LYMPH: No cervical lymphadenopathy. Objective Data Vital Signs Vital Signs: Vital Signs - 24 hr 09/24/23 11:34 09/24/23 13:46 09/24/23 14:24 Temperature 97.7 F Pulse Rate 83 85 Respiratory Rate 18 20 Blood Pressure 119/57 L Pulse Oximetry 95 99 Oxygen Delivery Nasal Cannula Oxygen Flow Rate 4 Fraction of Inspired Oxygen 09/24/23 14:36 09/24/23 12:00 09/24/23 16:00 Temperature 98.1 F Pulse Rate 88 89 Respiratory Rate 20 14 Blood Pressure 129/72 Pulse Oximetry 97 Oxygen Delivery BiPAP Oxygen Flow Rate Fraction of Inspired Oxygen 40 09/24/23 12:00 09/24/23 16:00 09/24/23 10:00 Temperature Pulse Rate 81 87 90 Respiratory Rate Blood Pressure Pulse Oximetry Oxygen Delivery Oxygen Flow Rate Fraction of Inspired Oxygen 09/24/23 14:00 09/24/23 16:00 09/24/23 18:00 Temperature Pulse Rate 88 92 Respiratory Rate Blood Pressure Pulse Oximetry 97 Oxygen Delivery Nasal Cannula Oxygen Flow Rate 3 Fraction of Inspired Oxygen 09/24/23 19:31 09/24/23 20:20 09/24/23 20:23 Temperature 98.9 F Pulse Rate 96 98 Respiratory Rate 16 20 Blood Pressure 125/50 L Pulse Oximetry 96 98 Oxygen Delivery Nasal Cannula Oxygen Flow Rate 3 Fraction of Inspired Oxygen 08/26
[2023-09-25 09:54] LABS: Alveolar/Arterial O2 Gradient 63.8 mmHg; Base Excess ABG 17.9 mEq/l (+/-2.0); Fractional Inspired Oxygen 32 %; HCO3 ABG 47.6 mEq/l (22.0-26.0); Oxygen Content ABG 12.3 %vol (16.0-22.0); PO2 ABG 53.3 mmHg (80.0-100.0); PO2 FiO2 Ratio Arterial Blood 1.67 %; Total Hemoglobin 10.4 g/dL (12.0-18.0); pH ABG 7.318 (7.350-7.450)
[2023-09-25 09:57] LABS: PCO2 ABG 94.9 mmHg (35.0-45.0)
[2023-09-25 09:58] LABS: Oxygen Saturation ABG 82.2 % (95.0-100.0)
[2023-09-25 09:59] LABS: Device NASAL CANNULA; Modified Allen's Test Pass; Oxyhemoglobin 83.9 % THb (90.0-100.0); Site Drawn RIGHT RADIAL
[2023-09-25 10:04] LABS: Basophils Percent Auto 0.1 % (0.2-1.2); Hematocrit 32.8 % (37.0-47.0); Hemoglobin 9.5 g/dL (12.0-15.0); Immature Granulocyte Absolute 0.04 K/mm3 (0.00-0.031); Immature Granulocyte Percent A 0.3 % (0-0.5); Lymphocytes Absolute Auto 0.11 K/mm3 (0.9-3.2); Lymphocytes Percent Auto 0.9 % (18.3-44.2); Mean Corpuscular Volume 110.4 fl (80-100); Mean Platelet Volume 10.9 fl (7.4-10.4); Monocytes Absolute Auto 0.4 K/mm3 (0.1-0.6); Neutrophils Absolute Auto 11.2 K/mm3 (1.3-6.7); Neutrophils Percent Auto 95.7 % (45.5-73.1); Platelet Count Result 185 k/mm3 (150-375); Red Blood Count 2.97 M/mm3 (4.2-5.4); Red Cell Distribution Width 11.8 % (11.5-14.5); White Blood Count 11.8 K/mm3 (4.5-10.0)
[2023-09-25 10:22] LABS: Hypochromasia 2+; Platelet Estimate Adequate (Adequate); Schistocytes None Seen; Stomatocytes 2+
[2023-09-25 10:30] LABS: Blood Urea Nitrogen 16 mg/dL (7-17); Calcium 9.1 mg/dL (8.4-10.2); Carbon Dioxide > 40 mmol/L (22-30); Chloride 85 mmol/L (98-107); Estimated CRCL calculation 49 ml/min; Estimated Glomerular Filt Rate > 60; Glucose 241 mg/dL (65-110); Potassium 3.9 mmol/L (3.4-5.0); Sodium 138 mmol/L (137-145)
[2023-09-26] VITALS (31 sets, daily range): BP systolic 99–138; BP diastolic 48–66; PULSE 68–94; RESP 14–24; TEMP 36.1–36.4; O2SAT 87–100
[2023-09-26 05:14] LABS: Hematocrit 30.1 % (37.0-47.0); Hemoglobin 8.9 g/dL (12.0-15.0); Immature Granulocyte Absolute 0.05 K/mm3 (0.00-0.031); Immature Granulocyte Percent A 0.6 % (0-0.5); Lymphocytes Absolute Auto 0.18 K/mm3 (0.9-3.2); Lymphocytes Percent Auto 2.1 % (18.3-44.2); Mean Corpuscular HGB Conc 29.6 g/dl (32-36); Mean Corpuscular Volume 108.3 fl (80-100); Monocytes Absolute Auto 0.4 K/mm3 (0.1-0.6); Monocytes Percent Auto 5.2 % (2.6-8.5); Neutrophils Absolute Auto 7.8 K/mm3 (1.3-6.7); Neutrophils Percent Auto 92.1 % (45.5-73.1); Platelet Count Result 166 k/mm3 (150-375); Red Blood Count 2.78 M/mm3 (4.2-5.4); Red Cell Distribution Width 11.7 % (11.5-14.5); White Blood Count 8.5 K/mm3 (4.5-10.0)
[2023-09-26 05:24] LABS: Alveolar/Arterial O2 Gradient < 0.0 mmHg; Base Excess ABG 23.7 mEq/l (+/-2.0); Fractional Inspired Oxygen 36 %; HCO3 ABG 53.2 mEq/l (22.0-26.0); Oxygen Content ABG 13.8 %vol (16.0-22.0); Oxygen Saturation ABG 98.8 % (95.0-100.0); Oxyhemoglobin 97.8 % THb (90.0-100.0); PO2 ABG 156.9 mmHg (80.0-100.0); PO2 FiO2 Ratio Arterial Blood 4.36 %; Total Hemoglobin 9.8 g/dL (12.0-18.0); pH ABG 7.356 (7.350-7.450)
[2023-09-26 05:27] LABS: Device NON-INVASIVE VENT; Modified Allen's Test Pass; PCO2 ABG 97.2 mmHg (35.0-45.0); Site Drawn RIGHT RADIAL
[2023-09-26 05:28] LABS: Non-Invasive Expiratory Pressure 5 CMH2O; Non-Invasive Vent Rate 18 /MIN
[2023-09-26 05:31] LABS: Blood Urea Nitrogen 23 mg/dL (7-17); Calcium 8.6 mg/dL (8.4-10.2); Carbon Dioxide > 40 mmol/L (22-30); Chloride 88 mmol/L (98-107); Estimated CRCL calculation 57 ml/min; Estimated Glomerular Filt Rate > 60; Glucose 140 mg/dL (65-110); Sodium 137 mmol/L (137-145)
[2023-09-26 06:32] LABS: Hypochromasia 2+; Platelet Estimate Adequate (Adequate); Schistocytes None Seen; Stomatocytes 2+
[2023-09-26] MEDS: dilTIAZem HCL 60 MG TABLET PO ×3 (06:43→20:52)
[2023-09-26] MEDS: IPRATROPIUM 0.5 MG/ALBUTEROL SULFATE 2.5 MG AMPUL.NEB 3 ML INHALATION ×3 (07:27→20:30)
[2023-09-26] MEDS: BUDESONIDE RESPULE NEB 0.5 MG/2 ML AMP INHALATION ×2 (07:27→20:30)
[2023-09-26] MEDS: ENOXAPARIN 40 MG/0.4 ML SYRINGE SUB-Q (09:09)
[2023-09-26] MEDS: FUROSEMIDE 20 MG TABLET PO (09:10)
[2023-09-26] MEDS: SPIRONOLACTONE 25 MG TABLET PO (09:10)
--- NOTE | 2023-09-26 10:13 | PM.IMPN ---
Progress Note: A&P Assessment and Plan (1) COPD exacerbation: Code(s): J44.1 - Chronic obstructive pulmonary disease with (acute) exacerbation Status: Acute (2) Acute and chronic respiratory failure with hypercapnia: Code(s): J96.22 - Acute and chronic respiratory failure with hypercapnia Status: Acute (3) Chronic anemia: Code(s): D64.9 - Anemia, unspecified Status: Acute (4) Essential hypertension: Code(s): I10 - Essential (primary) hypertension Status: Acute (5) Diastolic heart failure: Code(s): I50.30 - Unspecified diastolic (congestive) heart failure Status: Acute Plan COPD exacerbation, acute on chronic respiratory failure with hypercapnia Patient has worsening shortness breath, ABG showed respiratory failure with CO2 retention and compensated respiratory acidosis Flu test and COVID test are negative Chest x-ray shows severe emphysema CTA shows no PE, pending report Chronic patient's on BiPAP Continue DuoNeb scheduled q.6 hours, albuterol nebulizer q.4 hours as needed, increase methylprednisolone to 60 mg q.6 hour Start doxycycline 100 mg q.8 hours p.o. Continue home medication. Pulmicort and Spiriva ABG p.r.n. Consult knuckler for evaluation treatment 09/24: CO2 retention is improving. Appreciate pulmonary consultation, management per knuckler's plan 09/25 patient need BiPAP, patient feels better, appetite improving, still has general weakness, has cough with scant phlegm Diastolic heart failure Compensated Continue furosemide 20 mg daily p.o., spironolactone 25 mg daily p.o. Essential hypertension Continue Cardizem 60 mg t.i.d. p.o. Chronic anemia No obvious bleeding Follow-up stool guaiac, reticulocyte, ferritin iron panel Anxiety Continue Lexapro and Xanax p.o. Severe Subjective Date/time seen: 09/26/23 10:13 Interval history: I saw and exam patient today. Patient still has a cough with scant fluid time, denies chest pain, abdomen pain, nausea vomiting. Appetite is improving. Patient is on patient's home Trelegy. Labs reviewed, Exam Narrative: GENERAL: Somewhat respiratory distress, - EYES: EOMI. Anicteric. - HENT: Moist mucous membranes. - LUNGS: Decreased air entry bilaterally, improving, tachypnea persists, - CARDIOVASCULAR: Regular rate and rhythm. No murmur. No JVD. Tachycardia - ABDOMEN: Soft, non-tender and non-distended. No palpable masses. - EXTREMITIES: No edema. Peripheral pulses 2+. Non-tender. - NEUROLOGIC: No focal neurological deficits. CN II-XII grossly intact. - PSYCHIATRIC: Awake, Alert and oriented x 3. Appropriate mood and affect. - SKIN: No rashes or lesions. Warm. - LYMPH: No cervical lymphadenopathy. Objective Data Vital Signs Vital Signs: Vital Signs - 24 hr 09/25/23 12:00 09/25/23 13:00 09/25/23 13:15 Temperature 97.7 F Pulse Rate 96 101 H 101 H Respiratory Rate 22 H 21 H 21 H Blood Pressure 133/65 Pulse Oximetry 90 98 Oxygen Delivery Oxygen Flow Rate Fraction of Inspired Oxygen 09/25/23 12:00 09/25/23 12:00 09/25/23 14:00 Temperature Pulse Rate 104 H 99 Respiratory Rate Blood Pressure Pulse Oximetry 98 Oxygen Delivery Nasal Cannula Oxygen Flow Rate 3 Fraction of Inspired Oxygen 09/25/23 16:00 09/25/23 16:00 09/25/23 16:00 Temperature 97.1 F L Pulse Rate 90 91 Respiratory Rate 20 Blood Pressure 110/58 L Pulse Oximetry 98 98 Oxygen Delivery BiPAP Oxygen Flow Rate 4 Fraction of Inspired Oxygen 09/25/23 18:00 09/25/23 19:32 09/25/23 19:32 Temperature Pulse Rate 85 95 Respiratory Rate 20 Blood Pressure Pulse Oximetry 95 Oxygen Delivery Nasal Cannula Oxygen Flow Rate 4 Fraction of Inspired Oxygen 09/25/23 19:42 09/25/23 19:49 09/25/23 20:31 Temperature 97.3 F L Pulse Rate 92 95 93 Respiratory Rate 22 H 20 20 Blood Pressure 102/53 L Pulse Oximetry 98 98 Oxy
--- NOTE | 2023-09-26 10:21 | P.PNPL_ITS ---
Progress Note: A&P Assessment and Plan (1) COPD (chronic obstructive pulmonary disease): Qualifiers: COPD type: unspecified COPD Qualified Code(s): J44.9 - Chronic obstructive pulmonary disease, unspecified Code(s): J44.9 - Chronic obstructive pulmonary disease, unspecified Status: Acute Assessment and Plan: Gold grade 4 group E COPD Patient followed in the Pulmonary Clinic in last seen on 05/11/2023 and as an inpatient on 08/17/2023 patient with 84 pack year history tobacco use, quit 04/11/2012, FEV1 22% on 07/31/2015, ? DLCO remained moderately decreased when adjusted for alveolar volume, lung volumes were not performed, with severe panlobular emphysema on CT scan.? She was using 3 L with rest, 6 with exertion. She was wearing a noninvasive trilogy every night with sleep since 2017. AVAPS EA mode with respiratory rate is 20, tidal volume 420, EPAP minimum 5, EPAP maximum 15, pres sure support minimum 8, pressure support maximum 15, maximum pressure 30, rise time 3, ramp length 20. She wears 5 L NC under the mask. She was using Brovana nebs b.i.d., Spiriva Handy haler q.day and levalbuterol once daily in the morning.? Budesonide was added back 06/29/2021.? In early June patient developed COVID and had respiratory tract infection symptoms.? She required a temporary increased from 3 L during the day to 4 L during the day.? She took Paxil of it for 5 days and tells me she made a complete recovery.? The also had COVID and took Paxlovid. 08/14/2023 through 08/17/2023: Patient admitted to [facility] with COPD exacerbation with acute on chronic hypercarbic and hypoxemic respiratory failure. Patient discharged on prednisone X 1 day, Brovana, Spiriva Respimat, rescue albuterol, noninvasive ventilator When patient naps or sleeps noninvasive ventilation through via med with AVAPS AE with a breath rate of 18, tidal volume 420, minimum EPAP 5, maximum EPAP 15, minimum pressure support 8, maximum pressure support 15, total maximum pressure 30, rise time 3 and 4 L NC under mask. Patient had an overnight oximetry on these settings with recording durati on of 8 hours and 13 minutes.? Average saturation 99%.? Low saturation 91%.? Time with saturation less than or equal to 88% was 0 minutes.? Oxygen desaturation index was 0.4.? Patient had an ABG prior to removal of the mass with a pH of 7. 4 /138. Oxygen on 2 L at rest and 5 with activity per home O2 assessment. The patient and family did discuss hospice care with a coordinator but at this time felt they were not ready for hospice care. Patient was discharged home and completed her prednisone in was in her usual state of health. On 09/02/2023 the patient had jerking episodes of her head that would occur approximately 10 times an hour. She also had jerking of her hands. Her oxygen and breathing remains stable. When she would jerk her head she was awake these would last 1-2 seconds, she had no associated neurologic deficits, no cardiac issues. Patient was in her usual state of health on 09/05 throughout the day and night and was placed on her home noninvasive ventilator by her . The patient woke up that evening to go to the bathroom in the took the mask off and the patient was wearing her normal 4 L under the mask and when he took the mask off she read immediately desaturated to 68%. As directed he increase the oxygen to 5 L for her to walk to the bathroom and her saturations increased to 97%. Patient got back in bed and he put the mask on and decreased her to 4 L and her saturations decreased to 82%. 09/07/23 through 09/10/23: Patient brought to the emergency room for hypoxia, in ED saturations were 96% on 4 L nasal cannula. P
[2023-09-26] MEDS: ACETAMINOPHEN 325 MG TABLET 650 MG PO (21:08)
[2023-09-27] VITALS (10 sets, daily range): BP systolic 123–130; BP diastolic 53–59; PULSE 65–89; RESP 18–21; TEMP 36.4–36.7; O2SAT 92–100
[2023-09-27] MEDS: dilTIAZem HCL 60 MG TABLET PO (05:42)
[2023-09-27 06:15] LABS: Alveolar/Arterial O2 Gradient 38.1 mmHg; Base Excess ABG 18.3 mEq/l (+/-2.0); Fractional Inspired Oxygen 32 %; Oxygen Content ABG 14.2 %vol (16.0-22.0); Oxygen Saturation ABG 96.2 % (95.0-100.0); Oxyhemoglobin 96.2 % THb (90.0-100.0); PO2 ABG 91.1 mmHg (80.0-100.0); PO2 FiO2 Ratio Arterial Blood 2.85 %; Total Hemoglobin 10.4 g/dL (12.0-18.0); pH ABG 7.363 (7.350-7.450)
[2023-09-27 06:17] LABS: Device OTHER DEVICE; PCO2 ABG 84.6 mmHg (35.0-45.0); Site Drawn RIGHT BRACHIAL
--- NOTE | 2023-09-27 06:41 | PCRCNOTE ---
0200 updraft treatment not administered due to patient being on overnight oximetry. Treatment to resume at 0800.
[2023-09-27] MEDS: IPRATROPIUM 0.5 MG/ALBUTEROL SULFATE 2.5 MG AMPUL.NEB 3 ML (07:09)
[2023-09-27] MEDS: BUDESONIDE RESPULE NEB 0.5 MG/2 ML AMP INHALATION (07:09)
[2023-09-27] MEDS: ENOXAPARIN 40 MG/0.4 ML SYRINGE SUB-Q (08:23)
[2023-09-27] MEDS: SPIRONOLACTONE 25 MG TABLET PO (08:23)
[2023-09-27] MEDS: FUROSEMIDE 20 MG TABLET PO (08:23)
--- NOTE | 2023-09-27 09:32 | PM.IMPN ---
Progress Note: A&P Assessment and Plan (1) COPD exacerbation: Code(s): J44.1 - Chronic obstructive pulmonary disease with (acute) exacerbation Status: Acute (2) Acute and chronic respiratory failure with hypercapnia: Code(s): J96.22 - Acute and chronic respiratory failure with hypercapnia Status: Acute (3) Chronic anemia: Code(s): D64.9 - Anemia, unspecified Status: Acute (4) Essential hypertension: Code(s): I10 - Essential (primary) hypertension Status: Acute (5) Diastolic heart failure: Code(s): I50.30 - Unspecified diastolic (congestive) heart failure Status: Acute Plan COPD exacerbation, acute on chronic respiratory failure with hypercapnia Patient has worsening shortness breath, ABG showed respiratory failure with CO2 retention and compensated respiratory acidosis Flu test and COVID test are negative Chest x-ray shows severe emphysema CTA shows no PE, pending report Chronic patient's on BiPAP Continue DuoNeb scheduled q.6 hours, albuterol nebulizer q.4 hours as needed, increase methylprednisolone to 60 mg q.6 hour Start doxycycline 100 mg q.8 hours p.o. Continue home medication. Pulmicort and Spiriva ABG p.r.n. Consult cardiothoracic physiotherapist for evaluation treatment 09/24: CO2 retention is improving. Appreciate pulmonary consultation, management per cardiothoracic physiotherapist's plan 09/25 patient need BiPAP, patient feels better, appetite improving, still has general weakness, has cough with scant phlegm /. Patient condition continue to improve, does not need BiPAP during the day, appreciate cardiothoracic physiotherapist consultation. Pulmonary recommends discharge patient home with patient's Trelegy that will be reset per cardiothoracic physiotherapist Diastolic heart failure Compensated Continue furosemide 20 mg daily p.o., spironolactone 25 mg daily p.o. Compensated Essential hypertension Continue Cardizem 60 mg t.i.d. p.o. Chronic anemia No obvious bleeding reticulocyte, ferritin iron panel within normal limit, follow-up for primary care doctor Anxiety Continue Lexapro and Xanax p.o. Severe Subjective Date/time seen: 09/27/23 09:32 Interval history: I saw and exam patient today. Patient denies chest pain, abdomen pain, nausea vomiting. Appetite is improving. Patient is on patient's home Trelegy. Labs reviewed, Exam Narrative: GENERAL: Pleasant - EYES: EOMI. Anicteric. - HENT: Moist mucous membranes. - LUNGS: Decreased air entry bilaterally, improving, no obvious respiratory distress - CARDIOVASCULAR: Regular rate and rhythm. No murmur. No JVD. Tachycardia - ABDOMEN: Soft, non-tender and non-distended. No palpable masses. - EXTREMITIES: No edema. Peripheral pulses 2+. Non-tender. - NEUROLOGIC: No focal neurological deficits. CN II-XII grossly intact. - PSYCHIATRIC: Awake, Alert and oriented x 3. Appropriate mood and affect. - SKIN: No rashes or lesions. Warm. - LYMPH: No cervical lymphadenopathy. Objective Data Vital Signs Vital Signs: Vital Signs - 24 hr 09/26/23 10:00 09/26/23 12:00 09/26/23 13:12 Temperature 97.3 F L Pulse Rate 74 84 85 Respiratory Rate 22 H 19 Blood Pressure 138/59 L Pulse Oximetry 96 93 Oxygen Delivery Autopap Oxygen Flow Rate Fraction of Inspired Oxygen 09/26/23 13:12 09/26/23 13:20 09/26/23 15:17 Temperature Pulse Rate 85 84 Respiratory Rate 19 20 Blood Pressure Pulse Oximetry 94 Oxygen Delivery Nasal Cannula Oxygen Flow Rate 3 Fraction of Inspired Oxygen 32 09/26/23 15:17 09/26/23 12:00 09/26/23 12:00 Temperature Pulse Rate 94 Respiratory Rate Blood Pressure Pulse Oximetry 95 Oxygen Delivery High Flow Nasal Cannula Nasal Cannula Oxygen Flow Rate 6 3 Fraction of Inspired Oxygen 09/26/23 14:00 09/26/23 16:00 09/26/23 16:00 Temperature 97 F L Pulse Rate 87 81 84 Respiratory Rate 14 Blood Pressure 124/55 L Pulse Oximetry 100 Oxygen Delivery
--- NOTE | 2023-09-27 09:42 | PM.PNPUL ---
Progress Note: A&P Assessment and Plan (1) COPD (chronic obstructive pulmonary disease): Qualifiers: COPD type: unspecified COPD Qualified Code(s): J44.9 - Chronic obstructive pulmonary disease, unspecified Code(s): J44.9 - Chronic obstructive pulmonary disease, unspecified Status: Acute Assessment and Plan: Gold grade 4 group E COPD Patient followed in the Pulmonary Clinic in last seen on 05/11/2023 and as an inpatient on 08/17/2023 patient with 84 pack year history tobacco use, quit 04/11/2012, FEV1 22% on 07/31/2015, ? DLCO remained moderately decreased when adjusted for alveolar volume, lung volumes were not performed, with severe panlobular emphysema on CT scan.? She was using 3 L with rest, 6 with exertion. She was wearing a noninvasive trilogy every night with sleep since 2017. AVAPS EA mode with respiratory rate is 20, tidal volume 420, EPAP minimum 5, EPAP maximum 15, pressure support minimum 8, pressure support maximum 15, maximum pressure 30, rise time 3, ramp length 20. She wears 5 L NC under the mask. She was using Brovana nebs b.i.d., Spiriva Handy haler q.day and levalbuterol once daily in the morning.? Budesonide was added back 06/29/2021.? In early June patient developed COVID and had respiratory tract infection symptoms.? She required a temporary increased from 3 L during the day to 4 L during the day.? She took Paxil of it for 5 days and tells me she made a complete recovery.? The also had COVID and took Paxlovid. 08/14/2023 through 08/17/2023: Patient admitted to [facility] with COPD exacerbation with acute on chronic hypercarbic and hypoxemic respiratory failure. Patient discharged on prednisone X 1 day, Brovana, Spiriva Respimat, rescue albuterol, noninvasive ventilator When patient naps or sleeps noninvasive ventilation through via med with AVAPS AE with a breath rate of 18, tidal volume 420, minimum EPAP 5, maximum EPAP 15, minimum pressure support 8, maximum pressure support 15, total maximum pressure 30, rise time 3 and 4 L NC under mask. Patient had an overnight oximetry on these settings with recording duration of 8 hours and 13 minutes.? Average saturation 99%.? Low saturation 91%.? Time with saturation less than or equal to 88% was 0 minutes.? Oxygen desaturation index was 0.4.? Patient had an ABG prior to removal of the mass with a pH of 7. 4 /138. Oxygen on 2 L at rest and 5 with activity per home O2 assessment. The patient and family did discuss hospice care with a coordinator but at this time felt they were not ready for hospice care. Patient was discharged home and completed her prednisone in was in her usual state of health. On 09/02/2023 the patient had jerking episodes of her head that would occur approximately 10 times an hour. She also had jerking of her hands. Her oxygen and breathing remains stable. When she would jerk her head she was awake these would last 1-2 seconds, she had no associated neurologic deficits, no cardiac issues. Patient was in her usual state of health on 09/05 throughout the day and night and was placed on her home noninvasive ventilator by her . The patient woke up that evening to go to the bathroom in the took the mask off and the patient was wearing her normal 4 L under the mask and when he took the mask off she read immediately desaturated to 68%. As directed he increase the oxygen to 5 L for her to walk to the bathroom and her saturations increased to 97%. Patient got back in bed and he put the mask on and decreased her to 4 L and her saturations decreased to 82%. 09/07/23 through 09/10/23: Patient brought to the emergency room for hypoxia, in ED saturations were 96% on 4 L nasal cannula. Patient was treated for possible COPD exacerbation with Solu-Medrol, bronchodilators and noninvasive ventilation. COVID, influenza, RSV RT PCR studies negative. The does an excellent job providing care for the patient at
--- NOTE | 2023-09-27 10:49 | PM.DS ---
DS: Admitting Diagnosis Discharge Date 09/26 Admitting Diagnosis (1) COPD exacerbation: ?Code(s): J44.1 - Chronic obstructive pulmonary disease with (acute) exacerbation ?Status:?Acute (2) Acute and chronic respiratory failure with hypercapnia: ?Code(s): J96.22 - Acute and chronic respiratory failure with hypercapnia ?Status:?Acute (3) Chronic anemia: ?Code(s): D64.9 - Anemia, unspecified ?Status:?Acute (4) Essential hypertension: ?Code(s): I10 - Essential (primary) hypertension ?Status:?Acute (5) Diastolic heart failure: ?Code(s): I50.30 - Unspecified diastolic (congestive) heart failure ?Status:?Acute DS: Discharge Diagnosis Discharge Diagnosis (1) COPD exacerbation: Code(s): J44.1 - Chronic obstructive pulmonary disease with (acute) exacerbation Status: Acute (2) Acute and chronic respiratory failure with hypercapnia: Code(s): J96.22 - Acute and chronic respiratory failure with hypercapnia Status: Acute (3) Chronic anemia: Code(s): D64.9 - Anemia, unspecified Status: Acute (4) Essential hypertension: Code(s): I10 - Essential (primary) hypertension Status: Acute (5) Diastolic heart failure: Code(s): I50.30 - Unspecified diastolic (congestive) heart failure Status: Acute DS: Summary Hospital Course Hospital Course: 73 years old lady with history of emphysema, hypertension, anxiety, NATHANAEL on CPAP, chronic respiratory failure diastolic heart failure follow echocardiogram August 17, 2001? brought to ED via EMS because of shortness breath.? Patient has worsening shortness of breaths yesterday, patient use oxygen 3 liter/minutes, and patient still had hypoxemia pulse ox about 80s.? And patient was noticed somnolent. ? EMS was called, patient was placed on CPAP.? When patient was transferred, patient was found apneic about 45 seconds and patient was unresponsive patient was brought to ED for evaluation.? Upon arrival in the ED, patient was afebrile, blood pressure stable, but had tachycardia tachypnea, ABG showed decompensated respiratory acidosis with CO2 retention, pH 7.226, pCO2 180, PO2 170s 3, bicarb 73.3 In the ED, patient declined intubation.? Patient was placed on BiPAP, repeated ABG suggested? improving of CO2 retention, pH? 7.387, pCO2 82.8.? Patient also found have leukocytosis 10,200 with left shift, x-ray shows severe emphysema.? Flu negative,, negative, CTA showed no PE, report is pending The following med issues have been addressed during hospitalization COPD exacerbation, acute on chronic respiratory failure with hypercapnia Patient has worsening shortness breath, ABG showed respiratory failure with CO2 retention and compensated respiratory acidosis Flu test and COVID test are negative Chest x-ray shows severe emphysema CTA shows no PE, pending report Chronic patient's on BiPAP Continue DuoNeb scheduled q.6 hours, albuterol nebulizer q.4 hours as needed, increase methylprednisolone to 60 mg q.6 hour Start doxycycline 100 mg q.8 hours p.o. Continue home medication. Pulmicort and Spiriva ABG p.r.n. Consult wildlife refuge manager for evaluation treatment 4/: CO2 retention is improving. Appreciate pulmonary consultation, management per wildlife refuge manager's plan 4/2 patient need BiPAP, patient feels better, appetite improving, still has general weakness, has cough with scant phlegm 4/3. Patient condition continue to improve, does not need BiPAP during the day, appreciate wildlife refuge manager consultation. Pulmonary recommends discharge patient home with patient's Trelegy that will be reset per wildlife refuge manager Diastolic heart failure Compensated Continue furosemide 20 mg daily p.o., spironolactone 25 mg daily p.o. Compensated Essential hypertension Continue Cardizem 60 mg t.i.d. p.o. Chronic anemia No obvious bleeding reticulocyte, ferritin iron panel within normal limit, follow-up for primary care doctor Pankaj
[2023-09-27] MEDS: ACETAMINOPHEN 325 MG TABLET 650 MG PO (10:57)
== END 2023-09-27 11:55 | disposition home or self-care (01) | DRG 189 ==
LOC: ANHED 20:18 → ANHIMU 09-24 03:48
PROVIDERS: Internal Medicine Pulmonary Disease; Admitting Provider Internal Medicine; Emergency Provider Student in an Organized Health Care Education/Training Program; PCP Internal Medicine; Visit Provider Hospitalist
DX: J96.22 Acute and chronic respiratory failure with hypercapnia (principal); I50.32 Chronic diastolic (congestive) heart failure; J96.21 Acute and chronic respiratory failure with hypoxia; J43.2 Centrilobular emphysema; I11.0 Hypertensive heart disease with heart failure; D64.9 Anemia, unspecified; F41.9 Anxiety disorder, unspecified; G47.33 Obstructive sleep apnea (adult) (pediatric); R91.8 Other nonspecific abnormal finding of lung field; Z20.822 Contact with and (suspected) exposure to COVID-19; Z87.891 Personal history of nicotine dependence; Z99.89 Dependence on other enabling machines and devices
CPT/HCPCS: 36415; 36600; 71045; 71275; 80048; 80053; 82375; 82728; 82805; 83050; 83540; 83550; 83735; 85025; 85046; 85380; 87040; 87637; 93005; 94640; 94762; 96365; 97162; 99285; A9270; J1650; J2919; J2920; J2930; J3475; J7030; Q9967

== ENCOUNTER 2023-12-16 23:02 | Inpatient (IN) | payer MEDICARE, BC, SELFPAY ==
--- NOTE | ~2023-12-16 | XR_ITS ---
EXAMINATION: XR chest 1V portable DATE: 12/17/2023 00:23 INDICATION: Dyspnea TECHNIQUE: frontal view of the chest was obtained. COMPARISON: Chest radiograph and CT dated 09/23/2023 FINDINGS: Diffuse bilateral increased interstitial pattern with peripheral Fermin B-lines throughout both lungs . Intervening increased lucency and architectural distortion consistent with emphysema. Chronic scarr ing at the left upper lobe. No pleural effusion or pneumothorax. The cardiomediastinal silhouette is normal. Multiple chronic thoracic compression fractures. IMPRESSION: 1. Severe emphysema with scarring at the left upper lung lobe. 2. Diffuse increased interstitial pattern with Fermin B lines in favor mild pulmonary edema over pneu monia. Reviewed, dictated and finalized at location A. IMPRESSION: 1. Severe emphysema with scarring at the left upper lung lobe. 2. Diffuse increased interstitial pattern with Fermin B lines in favor mild pul monary edema over pneumonia.
[2023-12-16 23:04] VITALS: BP 126/58; PULSE 72; RESP 15; TEMP 36.6; O2SAT 89
[2023-12-16 23:12] VITALS: PULSE 71; O2SAT 86
[2023-12-16 23:17] VITALS: O2SAT 83
--- NOTE | 2023-12-16 23:17 | ECG_ITS ---
Test Date: 2023-12-16 23:14:56 Measurements Intervals [place] [facility] Rate: 73 P: 73 NC: 126 QRS: 81 QRSD: 86 T: 74 QT: 355 QTc: 393 Interpretive Statements SINUS RHYTHM NORMAL ELECTROCARDIOGRAM No previous ECG available for comparison Electronically Signed On 12-17-2023 08:41:55 CDT by Jose J Montelongo M.D.
[2023-12-16] MEDS: methylPREDNISolone SOD SUCC 125 MG VIAL IV PUSH (23:24)
[2023-12-16 23:25] LABS: Basophils Percent Auto 0.1 % (0.2-1.2); Eosinophils Percent Auto 0.5 % (0-4.4); Hematocrit 33.3 % (37.0-47.0); Hemoglobin 9.6 g/dL (12.0-15.0); Immature Granulocyte Absolute 0.03 K/mm3 (0.00-0.031); Immature Granulocyte Percent A 0.4 % (0-0.5); Lymphocytes Absolute Auto 0.87 K/mm3 (0.9-3.2); Mean Corpuscular HGB Conc 28.8 g/dl (32-36); Mean Corpuscular Hemoglobin 31.2 pg (26-34); Mean Corpuscular Volume 108.1 fl (80-100); Mean Platelet Volume 11.2 fl (7.4-10.4); Monocytes Absolute Auto 0.9 K/mm3 (0.1-0.6); Monocytes Percent Auto 11.2 % (2.6-8.5); Neutrophils Absolute Auto 6.1 K/mm3 (1.3-6.7); Neutrophils Percent Auto 76.8 % (45.5-73.1); Platelet Count Result 145 k/mm3 (150-375); Red Blood Count 3.08 M/mm3 (4.2-5.4); White Blood Count 7.9 K/mm3 (4.5-10.0)
[2023-12-16 23:31] VITALS: O2SAT 87
[2023-12-16] MEDS: IPRATROPIUM 0.5 MG/ALBUTEROL SULFATE 2.5 MG AMPUL.NEB 3 ML INHALATION (23:33)
[2023-12-16 23:35] VITALS: PULSE 68; PULSE 75; RESP 17; RESP 19; O2SAT 94
[2023-12-16 23:36] LABS: INR 0.8; Prothrombin Time 11.9 Seconds (11.1-14.7)
[2023-12-16 23:37] LABS: Lactic Acid Reflex 0.5 mmol/L (0.7-2.0); Partial Thromboplastin Time 33.7 Seconds (22.3-36.8)
[2023-12-16 23:44] LABS: Base Excess ABG 28.1 mEq/l (+/-2.0); Fractional Inspired Oxygen 36 %; HCO3 ABG 56.5 mEq/l (22.0-26.0); Oxyhemoglobin 93.1 % THb (90.0-100.0); Total Hemoglobin 10.4 g/dL (12.0-18.0); pH ABG 7.452 (7.350-7.450)
[2023-12-16 23:45] LABS: Platelet Estimate Slightly Decreased (Adequate)
[2023-12-16 23:46] LABS: Alanine Aminotransferase 17 U/L (6-35); Albumin Level 4.4 g/dL (3.5-5.1); Alkaline Phosphatase 75 U/L (38-126); Anisocytosis 1+; Aspartate Amino Transferase 28 U/L (14-36); Bilirubin,Total 0.5 mg/dL (0.2-1.3); Blood Urea Nitrogen 25 mg/dL (7-17); Calcium 9.3 mg/dL (8.4-10.2); Carbon Dioxide > 40 mmol/L (22-30); Chloride 80 mmol/L (98-107); Estimated CRCL calculation 63 ml/min; Estimated Glomerular Filt Rate > 60; Glucose 105 mg/dL (65-110); Hypochromasia 1+; Potassium 4.7 mmol/L (3.4-5.0); Schistocytes None Seen; Sodium 141 mmol/L (137-145)
[2023-12-16 23:48] LABS: NT Pro B Type Natriuretic Pept 274 pg/mL (19.9-100); Troponin I < 0.012 ng/mL (0.000-0.034)
--- NOTE | 2023-12-16 23:48 | ED.GENADULT ---
HPI - General Adult General Chief complaint: Altered Mental Status Stated complaint: unresponsive episodes, increased weakness Time Seen by Provider: 12/16/23 23:10 History of Present Illness HPI narrative: Patient is a 73-year-old female who presents emergency department with chief complaint of increasing weakness and similar episodes to when she has hypercapnic respiratory failure patient has prior history of COPD is on trilogy machine and now at a point where she has to be on her trilogy almost 247 family has to help her get to the bathroom while even on the trilogy machine of the patient's had episodes were she is becoming unresponsive at home and her saturations dropped down of whenever she is off of 6 L. The patient is in palliative care and family is interested in exploring hospice the patient only wants noninvasive positive pressure ventilation and does not want intubation or CPR Related Data Home Medications Medication Instructions Recorded Confirmed tiotropium bromide 2.5 2 inhalation inhalation QAM 09/30/19 09/24/23 mcg/actuation mist for inhalation (Spiriva Respimat) escitalopram oxalate 10 mg tablet 10 mg PO DAILY 04/10/20 09/24/23 furosemide 20 mg tablet 20 mg PO QAM 04/10/20 09/24/23 spironolactone 25 mg tablet 25 mg PO DAILY 04/10/20 09/24/23 alendronate 70 mg tablet 70 mg PO WEEKLY 08/15/23 09/24/23 alprazolam 0.25 mg tablet 0.25 mg PO HS PRN Anxiety 08/16/23 09/24/23 diltiazem HCl 60 mg tablet 60 mg PO TID 09/24/23 09/24/23 Allergies Allergy/AdvReac Type Severity Reaction Status Date / Time No Known Allergies Allergy Unverified 09/07/23 10:57 Review of Systems Review of Systems: A 10 system review of systems was completed on the patient and is negative except for what is stated in the HPI. Nursing and ancillary documentation was reviewed. [facility] Past Medical History Medical History Anxiety COPD (chronic obstructive pulmonary disease) Multiple nodules of lung Pulmonary hypertension Respiratory failure Family History Family History Sibling Family history of malignant neoplasm Carcinoma of colon Social History Social History Smoking packs per day: 2 Smoking cigarettes per day: 40.0 Years smoked: 30 Smoking pack-years: 60.00 Smoking status: Former smoker Tobacco type: cigarettes Smoking end date: 04/11/12 Alcohol intake: former Drinks per week: 2 Substance use: never Do You Feel Safe in your Home?: Yes Lack of Transportation: No Lack of Food: Never True Current Housing: I Have Housing Concerned About Future Housing: No Difficulty Paying Gas/Electric Bills: No Difficulty Paying for Meds: No Currently Unemployed: No Education: High School Diploma/GED Difficulty w/ Childcare or Family Care: No Spiritual care concerns: No Exam Narrative: GENERAL: Well-appearing, well-nourished, and in no acute distress. HEAD: Normocephalic, atraumatic. EYES: PERRLA and EOMI. ENT: Nares clear, no rhinorrhea or epistaxis. Mucous membranes moist. NECK: Supple. CHEST: Clear to auscultation. No respiratory distress. HEART: Regular rate and rhythm. No murmur heard. Normal peripheral pulses. ABDOMEN: Soft, nontender, nondistended, normal active bowel sounds. EXTREMITIES: Normal range of motion. No edema. SKIN: Warm, dry, no rash. NEURO: No focal deficits. Alert and oriented x3. Slow to respond PSYCH: Normal mood and affect. Course Vital Signs Vital signs: Vital Signs Temperature 36.6 C 12/16/23 23:04 Pulse Rate 72 12/16/23 23:04 Respiratory Rate 15 12/16/23 23:04 Blood Pressure 126/58 L 12/16/23 23:04 Pulse Oximetry 89 L 12/16/23 23:04 Oxygen Delivery Nasal Cannula 12/16/23 23:04 Oxygen Flow Rate 4 12/16/23 23:04 Temperature 36.6
[2023-12-16 23:49] LABS: PCO2 ABG 82.8 mmHg (35.0-45.0)
[2023-12-16 23:50] LABS: Device NON-INVASIVE VENT; Modified Allen's Test Pass; Site Drawn RIGHT RADIAL
[2023-12-16 23:51] LABS: Non-Invasive Expiratory Pressure 6 CMH2O; Non-Invasive Inspiratory Pressure 14 CMH2O; Non-Invasive Vent Rate 12 /MIN
[2023-12-16 23:54] LABS: Microcytosis 1+ (NORMAL); Stomatocytes 2+
[2023-12-16 23:55] LABS: Poikilocytosis 1+
[2023-12-17] VITALS (37 sets, daily range): BP systolic 96–136; BP diastolic 41–91; PULSE 69–102; RESP 17–26; TEMP 36.1–37.4; O2SAT 82–97; BMI 17.3
[2023-12-17 01:01] LABS: Influenza A QL RT-PCR Negative (Negative); Influenza B QL RT-PCR Negative (Negative); RSV RNA, RT-PCR Negative (Negative); SARS-CoV-2 RNA PCR Negative (Negative)
[2023-12-17] MEDS: IPRATROPIUM 0.5 MG/ALBUTEROL SULFATE 2.5 MG AMPUL.NEB 3 ML (01:40)
[2023-12-17 01:55] LABS: Appearance Urine Clear (Clear); Bacteria Urine None Seen /hpf; Bilirubin Urine Negative (Negative); Blood Urine Negative (Negative); Color Urine Dark Yellow (Yellow); Glucose Urine UA Negative (Negative); Ketones Urine Trace mg/dL (Negative); Leukocyte Esterase Ur Negative LEU/UL (Negative); Need Manual Microscopic Reviewed; Nitrate Urine Negative (Negative); Protein Urine 2+ mg/dL (Negative); RBC Urine 0-2 /hpf (0-2); Squamous Epithelial Cell Urine None Seen /hpf (Few); WBC Urine 0-5 /hpf (0-3)
[2023-12-17 01:56] LABS: Add Urine Microscopic? YES
--- NOTE | 2023-12-17 02:41 | PC.NURSE ---
This patient, Betsy Villa, was admitted to IMU Room 204-01. Patient/family oriented to hospital policies and general routines including ID bracelet, bed and alarms, visiting hours, pain management, procedures, bathroom and other care routines, personal items, smoking policy, room service/diet, and visiting hours. Information on how to activate the Rapid Response Team has been discussed. Patient/Family are encouraged to report perceived risks to care and to ask questions if they do not understand what they are told or what they should do.
--- NOTE | 2023-12-17 05:48 | PM.IMHP ---
H&P: HPI History of Present Illness Date/Time: 12/17/23 05:48 Chief Complaint: Zoning out, nodding off a lot Narrative: 73-year-old female with a past medical history of end-stage COPD with chronic hypoxic hypercapnic respiratory failure, diastolic dysfunction and pulmonary hypertension who presents to the ER from home via EMS due to confusion, nodding off and zoning out. The patient tells me that she has to wear her trilogy around the clock to be comfortable at all. She reports she cannot remember the last time she had something to drink. Currently at the time my evaluation she is aware she is at [facility] but is confused as to the month and year. She cannot give me much information regarding events prior to coming to the hospital and thus majority of information comes from ER physician report and nursing report as the patient's had stepped away from the bedside. Patient's reported the patient is increasing we can having similar symptoms of nodding off in zoning out compared to when she has had other episodes of acute exacerbations of respiratory failure. The patient has been has to help the patient get to the bathroom even while on the trilogy machine. She is having episodes of becoming unresponsive with oxygen saturations dropping down when she is on her 6 L nasal cannula. The patient states that she has not ready for hospice at all. The patient is already on palliative care and the patient's has voiced interest in discussing possibility of hospice. The patient does not provide much in review of systems in is instead more focused on asking this provider about her own medical conditions. Review of Systems Review of Systems: ROS unobtainable: Yes unobtainable due to medical condition (Confusion) [facility] Past Medical History Medical History (Updated 12/17/23 @ 07:07 by Yoana Rodriguez DO) Anxiety COPD (chronic obstructive pulmonary disease) Diastolic heart failure Essential hypertension Macrocytic anemia Multiple nodules of lung Osteoporosis With multiple compression fractures Pulmonary hypertension Respiratory failure Hypoxic and hypercapnic Family History Family History Sibling Family history of malignant neoplasm Carcinoma of colon Social History Social History (Updated 12/17/23 @ 06:53 by Yoana Rodriguez DO) Social History: Code status: DNR/DNI Healthcare power of attorney law clerk: Smoking packs per day: 2 Smoking cigarettes per day: 40.0 Years smoked: 30 Smoking pack-years: 60.00 Smoking status: Former smoker Tobacco type: cigarettes Smoking end date: 04/11/12 Alcohol intake: former Drinks per week: 2 Substance use: former Do You Feel Safe in your Home?: Yes Lack of Transportation: No Lack of Food: Never True Current Housing: I Have Housing Concerned About Future Housing: No Difficulty Paying Gas/Electric Bills: No Difficulty Paying for Meds: No Currently Unemployed: No Education: Decline to Answer Difficulty w/ Childcare or Family Care: No Spiritual care concerns: No Meds Home Medications and Allergies Home Medications Medication Instructions Recorded Confirmed Type tiotropium bromide 2.5 2 inhalation inhalation QAM 09/30/19 12/17/23 History mcg/actuation mist for inhalation (Spiriva Respimat) escitalopram oxalate 10 mg tablet 10 mg PO DAILY 04/10/20 12/17/23 History furosemide 20 mg tablet 20 mg PO QAM 04/10/20 12/17/23 History spironolactone 25 mg tablet 25 mg PO DAILY 04/10/20 12/17/23 History arformoterol 15 mcg/2 mL solution See Rx Instructions .Route 06/19/23 12/17/23 Rx for nebulization .COMPLEX #120 mL alendronate 70 mg tablet 70 mg PO WEEKLY 08/15/23 12/17/23 History diltiazem HCl 60 mg tablet 60 mg PO TID 09/24/23 12/17/23 History Allergies Allergy/AdvReac Type Severity Reaction Status Date / Time No Known Allergies Allergy
[2023-12-17] MEDS: methylPREDNISolone SOD SUCC 125 MG VIAL 60 MG IV PUSH (06:13)
[2023-12-17] MEDS: IPRATROPIUM 0.5 MG/ALBUTEROL SULFATE 2.5 MG AMPUL.NEB 3 ML INHALATION ×3 (07:33→20:44)
[2023-12-17] MEDS: WATER FOR IRRIGATION, STERILE 1,000 ML BOTTLE 1000 ML (07:36)
[2023-12-17] MEDS: FUROSEMIDE INJ 40 MG/4 ML VIAL 20 MG IV PUSH (08:07)
[2023-12-17] MEDS: SPIRONOLACTONE 25 MG TABLET PO (08:07)
[2023-12-17] MEDS: dilTIAZem HCL 60 MG TABLET PO ×3 (08:07→21:33)
[2023-12-17] MEDS: ESCITALOPRAM OXALATE 10 MG TABLET PO (08:08)
--- NOTE | 2023-12-17 08:53 | PM.IMPN ---
Progress Note: A&P Assessment and Plan (1) Acute on chronic respiratory failure with hypoxia and hypercapnia: Code(s): J96.21 - Acute and chronic respiratory failure with hypoxia; J96.22 - Acute and chronic respiratory failure with hypercapnia Status: Acute (2) End stage COPD: Code(s): J44.9 - Chronic obstructive pulmonary disease, unspecified Status: Acute (3) Diastolic heart failure: Qualifiers: Heart failure chronicity: acute on chronic Qualified Code(s): I50.33 - Acute on chronic diastolic (congestive) heart failure Code(s): I50.30 - Unspecified diastolic (congestive) heart failure Status: Acute (4) Essential hypertension: Code(s): I10 - Essential (primary) hypertension Status: Acute Plan Patient is a 73-year-old female who presents emergency department with chief complaint of increasing weakness and similar episodes to when she has hypercapnic respiratory failure patient has prior history of COPD is on trilogy machine and now at a point where she has to be on her trilogy almost 247 family has to help her get to the bathroom while even on the trilogy machine of the patient's had episodes were she is becoming unresponsive at home and her saturations dropped down of whenever she is off of 6 L. The patient is in palliative care and family is interested in exploring hospice the patient only wants noninvasive positive pressure ventilation and does not want intubation or CPR Acute on chronic respiratory failure with hypoxemia and hypocalcemia ABG showed CO2 retention pCO2 82.8, compensated respiratory acidosis, pH 7.45 Possible due to acute on chronic diastolic heart failure and possible COPD exacerbation Elevated BNP Chest x-ray suggests pulmonary congestion and possible atypical pneumonia Patient is on AVAPS Continue nebulizer and home does, methylprednisone IV Repeat ABG Consult heater helper forge COPD exacerbation X-ray showed severe emphysema, increased interstitial pattern, also suggesting pneumonia Continue DuoNeb q.6 hours scheduled, albuterol nebulizer p.r.n. Continue methylprednisolone 60 mg IV push q.8 hours IV Start Levaquin 750 mg IV daily Consult heater helper forge for evaluation treatment place care coordination consult for discussion of possible transition to hospice. The patient's would like more information. Acute on chronic diastolic heart failure Echocardiogram showed normal EF, grade 1 diastolic dysfunction Receive furosemide 20 mg IV push once, continue spironolactone 20 mg daily p.o. Continue furosemide 20 mg IV push daily Follow-up input output Chronic anemia Hemoglobin Close to baseline No obvious bleeding Follow-up CBC Otherwise will continue the remainder the patient's home medications. Subjective Date/time seen: 12/17/23 08:53 Interval history: I saw and examined patient in presents of patient's , patient feels dyspnea is improving since admission. Patient still has some dry cough without phlegm, patient denies chest pain abdomen pain nausea vomiting Exam Narrative: GENERAL: Pleasant, in no acute distress. Well-nourished. malnutrition - EYES: EOMI. Anicteric. - HENT: Moist mucous membranes. - LUNGS: Decreased air entry bilateral, - CARDIOVASCULAR: Regular rate and rhythm. No murmur. No JVD. - ABDOMEN: Soft, non-tender and non-distended. No palpable masses. - EXTREMITIES: No edema. Peripheral pulses 2+. Non-tender. - NEUROLOGIC: No focal neurological deficits. CN II-XII grossly intact. - PSYCHIATRIC: Awake, Alert and oriented x 3. Appropriate mood and affect. - SKIN: No rashes or lesions. Warm. - LYMPH: No cervical lymphadenopathy. Objective Data Vital Signs Vital Signs: Vital Signs - 24 hr 12/16/23 23:04 12/16/23 23:12 12/16/23 23:12 Temperature 97.9 F Pulse Rate 72 71 Respiratory Rate 15 Blood Pressure 126/58 L Pulse Oximetry 89 L 86 L Oxygen Delivery Nasal Cannula Nasal Cannula Oxygen
[2023-12-17 10:29] LABS: Alveolar/Arterial O2 Gradient 105.3 mmHg; Base Excess ABG 35.3 mEq/l (+/-2.0); Fractional Inspired Oxygen 45 %; HCO3 ABG 67.5 mEq/l (22.0-26.0); Oxygen Content ABG 14.1 %vol (16.0-22.0); Oxygen Saturation ABG 91.4 % (95.0-100.0); Oxyhemoglobin 93.3 % THb (90.0-100.0); PO2 ABG 71.9 mmHg (80.0-100.0); Total Hemoglobin 10.7 g/dL (12.0-18.0); pH ABG 7.346 (7.350-7.450)
[2023-12-17 10:32] LABS: PCO2 ABG 126.3 mmHg (35.0-45.0); Site Drawn LEFT RADIAL
[2023-12-17 10:33] LABS: Device BIPAP; Expiratory Pressure 4 cmH2O
[2023-12-17] MEDS: UMECLIDINIUM BROMIDE 62.5 MCG ELLIPTA 1 PUFF INHALATION (10:58)
--- NOTE | 2023-12-17 12:25 | PM.CNPUL ---
Assessment and Plan Assessment and plan (1) End stage COPD: Code(s): J44.9 - Chronic obstructive pulmonary disease, unspecified Status: Acute (2) Acute on chronic respiratory failure with hypoxia and hypercapnia: Code(s): J96.21 - Acute and chronic respiratory failure with hypoxia; J96.22 - Acute and chronic respiratory failure with hypercapnia Status: Acute Assessment and Plan: This 73-year-old female has end-stage emphysema with chronic hypoxemic hypercapnic respiratory failure, managed at home with ventilatory support via a Trilogy device and maintenance bronchodilators. She has experienced multiple hospitalizations due to COPD exacerbations. She presented with a 3-day history of worsening hypoxemia at home, accompanied by some confusion. On admission, her pCO2 was likely elevated. She did not exhibit other symptoms such as cough, fever, or wheezing, and there was no lower extremity edema. A chest X-ray showed no new infiltrates to suggest a lower respiratory tract infection. Congestive heart failure is being considered, although the chest X-ray image is not available for review. The patient's respiratory status likely reflects end-stage emphysema with hypercapnia and hypoxemia, possibly complicated by right heart failure. She does not have worsening cough, wheezing, or hyperinflation that would indicate a true COPD exacerbation. The patient has received a diuretic and is on IV steroids, presumably for a COPD exacerbation. Plan: Continue BiPAP support. I have adjusted the BiPAP pressures and will repeat arterial blood gases in approximately 2 hours. The patient needs to be started on DVT prophylaxis. I have discontinued IV steroids. Continue with nebulized short-acting bronchodilators. (3) Acute respiratory failure with hypoxia and hypercarbia: Code(s): J96.01 - Acute respiratory failure with hypoxia; J96.02 - Acute respiratory failure with hypercapnia Status: Acute History of Present Illness History of Present Illness Consult date: 12/17/23 Chief complaint: Acute exacerbation of COPD Narrative: This 73-year-old female with a history of end-stage COPD with chronic hypoxemic hypercapnic respiratory failure, with pulmonary hypertension, chronically on home ventilatory support presented to the hospital with some acute mental status changes. Patient has been using a trilogy around the clock because of shortness of breath. She has been on palliative care but reportedly she is not ready for hospice care. Her hospital stated that he has been more confused lately and also her oxygen dropped at night. She had no other symptoms such as coughing fever chills hemoptysis or wheezing. Initial ABGs while on BiPAP 07/12 showed pH of 7.45 and pCO2 of 83 mmHg. The patient has received treatment with diuretic IV steroids and also nebulized short-acting bronchodilators presumably for COPD exacerbation. Today's arterial blood gases showed worsening hypercapnia with a pCO2 of 126 mmHg well the pH was not too acidotic. Review of Systems Review of Systems: All systems reviewed & are unremarkable except as noted in HPI and below (HPI and below) [facility] Past Medical History Medical History (Updated 12/17/23 @ 07:07 by Yoana Rodriguez DO) Anxiety COPD (chronic obstructive pulmonary disease) Diastolic heart failure Essential hypertension Macrocytic anemia Multiple nodules of lung Osteoporosis With multiple compression fractures Pulmonary hypertension Respiratory failure Hypoxic and hypercapnic Family History Family History Sibling Family history of malignant neoplasm Carcinoma of colon Social History Social History (Updated 12/17/23 @ 06:53 by Yoana Rodriguez DO) Social History: Code status: DNR/DNI Healthcare power of district attorney: Smoking packs per day: 2 Smoking cigarettes per day: 40.0 Years smoked: 30 Smoking pack-year
[2023-12-17 15:48] LABS: Alveolar/Arterial O2 Gradient 116.7 mmHg; Base Excess ABG 34.6 mEq/l (+/-2.0); Fractional Inspired Oxygen 45 %; Oxygen Content ABG 13.9 %vol (16.0-22.0); Oxygen Saturation ABG 92.4 % (95.0-100.0); Oxyhemoglobin 93.1 % THb (90.0-100.0); PO2 ABG 72.8 mmHg (80.0-100.0); PO2 FiO2 Ratio Arterial Blood 1.62 %; Total Hemoglobin 10.6 g/dL (12.0-18.0); pH ABG 7.375 (7.350-7.450)
[2023-12-17 15:51] LABS: PCO2 ABG 115.5 mmHg (35.0-45.0); Site Drawn LEFT RADIAL
[2023-12-17 15:52] LABS: Device BIPAP; Inspiratory Pressure 14 cmH2O
[2023-12-17 15:53] LABS: Expiratory Pressure 4 cmH2O
[2023-12-18] VITALS (27 sets, daily range): BP systolic 103–120; BP diastolic 50–71; PULSE 65–96; RESP 18–21; TEMP 36.3–36.6; O2SAT 86–100; BMI 17.4
[2023-12-18] MEDS: IPRATROPIUM 0.5 MG/ALBUTEROL SULFATE 2.5 MG AMPUL.NEB 3 ML INHALATION ×4 (02:45→20:24)
[2023-12-18 06:29] LABS: Alveolar/Arterial O2 Gradient 110.6 mmHg; Base Excess ABG 37.4 mEq/l (+/-2.0); Fractional Inspired Oxygen 45 %; HCO3 ABG 68.5 mEq/l (22.0-26.0); Oxygen Content ABG 13.9 %vol (16.0-22.0); Oxygen Saturation ABG 94.8 % (95.0-100.0); Oxyhemoglobin 95.5 % THb (90.0-100.0); PO2 ABG 81.8 mmHg (80.0-100.0); PO2 FiO2 Ratio Arterial Blood 1.82 %; Total Hemoglobin 10.3 g/dL (12.0-18.0); pH ABG 7.401 (7.350-7.450)
[2023-12-18 06:33] LABS: Device BIPAP; Modified Allen's Test Pass; PCO2 ABG 112.9 mmHg (35.0-45.0); Site Drawn LEFT RADIAL
[2023-12-18 06:34] LABS: Expiratory Pressure 4 cmH2O; Inspiratory Pressure 14 cmH2O
[2023-12-18] MEDS: dilTIAZem HCL 60 MG TABLET PO ×3 (06:51→20:58)
[2023-12-18] MEDS: UMECLIDINIUM BROMIDE 62.5 MCG ELLIPTA 1 PUFF INHALATION (07:36)
[2023-12-18] MEDS: ESCITALOPRAM OXALATE 10 MG TABLET PO (08:42)
[2023-12-18] MEDS: SPIRONOLACTONE 25 MG TABLET PO (08:42)
--- NOTE | 2023-12-18 10:29 | PM.PNPUL ---
Progress Note: A&P Assessment and Plan (1) End stage COPD: Code(s): J44.9 - Chronic obstructive pulmonary disease, unspecified Status: Acute (2) Acute on chronic respiratory failure with hypoxia and hypercapnia: Code(s): J96.21 - Acute and chronic respiratory failure with hypoxia; J96.22 - Acute and chronic respiratory failure with hypercapnia Status: Acute Assessment and Plan: This 73-year-old female has end-stage emphysema with chronic hypoxemic hypercapnic respiratory failure, managed at home with ventilatory support via a Trilogy device and maintenance bronchodilators. She has experienced multiple hospitalizations due to COPD exacerbations. She presented with a 3-day history of worsening hypoxemia at home, accompanied by some confusion. On admission, her pCO2 was likely elevated. She did not exhibit other symptoms such as cough, fever, or wheezing, and there was no lower extremity edema. A chest X-ray showed no new infiltrates to suggest a lower respiratory tract infection. Congestive heart failure is being considered, although the chest X-ray image is not available for review. The patient's respiratory status likely reflects end-stage emphysema with hypercapnia and hypoxemia, possibly complicated by right heart failure. She does not have worsening cough, wheezing, or hyperinflation that would indicate a true COPD exacerbation. The patient has received a diuretic and is on IV steroids, presumably for a COPD exacerbation. Respiratory status essentially unchanged over the last 24 hours. The patient appears to be BiPAP dependent at this point. Arterial blood gases showed combined respiratory acidosis and metabolic alkalosis with a pCO2 greater than 100 mmHg. PH is normal at 7.40. She is fluid negative over the last 24 hours. Plan: Continue BiPAP support. I have discontinued the diuretic. Will continue with a short-acting bronchodilators. is considering hospice care. (3) COPD (chronic obstructive pulmonary disease): Code(s): J44.9 - Chronic obstructive pulmonary disease, unspecified Status: Acute Subjective Date/time seen: 12/18/23 10:29 Interval history: Patient has been on BiPAP support continuously. She is less confused while on BiPAP support this a.m.. stated that she was more confused yesterday. No other respiratory symptoms. She is fluid negative. Review of Systems Review of Systems: All systems reviewed & are unremarkable except as noted in HPI and below (HPI and below) Exam Narrative: GENERAL APPEARANCE: Well developed, elderly female looking chronically ill with a moderate respiratory distress while on BiPAP SKIN: Inspection of the skin reveals no rashes, ulcerations or petechiae. HEENT: Sclerae anicteric and conjunctivae pink and moist. Extraocular movements were intact and pupils were equal. NECK: Supple. There was no thyroid enlargement, and no tenderness, or masses were felt. CHEST: Increased AP diameter LUNGS: Over inflated lungs with distant breath sounds no wheezing CARDIAC: There was a regular rate and rhythm without any murmurs. ABDOMEN: Soft and nontender with normal bowel sounds. There was no organomegaly. LYMPH NODES: No lymphadenopathy was appreciated in the neck. EXTREMITIES: No cyanosis, clubbing or edema. NEUROLOGIC: Alert and oriented x 3. Normal affect. Objective Data Vital Signs Vital Signs: Vital Signs - 24 hr 12/17/23 10:48 12/17/23 11:26 12/17/23 12:00 Temperature 37.0 C Pulse Rate 75 76 Respiratory Rate 22 H 20 Blood Pressure 122/45 L Pulse Oximetry 93 96 94 Oxygen Delivery BiPAP BiPAP Oxygen Flow Rate Fraction of Inspired Oxygen 45 12/17/23 12:00 12/17/23 12:35 12/17/23 13:36 Temperature Pulse Rate 69 78 86 Respiratory Rate 19 20 Blood Pressure Pulse Oximetry 93 Oxygen Delivery BiPAP Oxygen Flow Rate Fraction of Inspired Oxygen 12/17/23 14:00 12/17/23 15:10 12/17/23 16:04 [place]
--- NOTE | 2023-12-18 11:22 | PM.IMPN ---
Progress Note: A&P Assessment and Plan (1) Acute on chronic respiratory failure with hypoxia and hypercapnia: Code(s): J96.21 - Acute and chronic respiratory failure with hypoxia; J96.22 - Acute and chronic respiratory failure with hypercapnia Status: Acute (2) End stage COPD: Code(s): J44.9 - Chronic obstructive pulmonary disease, unspecified Status: Acute (3) Diastolic heart failure: Qualifiers: Heart failure chronicity: acute on chronic Qualified Code(s): I50.33 - Acute on chronic diastolic (congestive) heart failure Code(s): I50.30 - Unspecified diastolic (congestive) heart failure Status: Acute (4) Essential hypertension: Code(s): I10 - Essential (primary) hypertension Status: Acute Plan Patient is a 73-year-old female who presents emergency department with chief complaint of increasing weakness and similar episodes to when she has hypercapnic respiratory failure patient has prior history of COPD is on trilogy machine and now at a point where she has to be on her trilogy almost 247 family has to help her get to the bathroom while even on the trilogy machine of the patient's had episodes were she is becoming unresponsive at home and her saturations dropped down of whenever she is off of 6 L. The patient is in palliative care and family is interested in exploring hospice the patient only wants noninvasive positive pressure ventilation and does not want intubation or CPR Acute on chronic respiratory failure with hypoxemia and hypocalcemia ABG showed CO2 retention pCO2 82.8, compensated respiratory acidosis, pH 7.45 Possible due to acute on chronic diastolic heart failure and possible COPD exacerbation Elevated BNP Chest x-ray suggests pulmonary congestion and possible atypical pneumonia Patient is on AVAPS Continue nebulizer and home does, methylprednisone IV Repeat ABG today showed severe CO2 retention 112.9, but patient is mentally clear oriented times x3 Consulted radiologic technologist, management per pulmonology COPD exacerbation X-ray showed severe emphysema, increased interstitial pattern, also suggesting pneumonia Continue DuoNeb q.6 hours scheduled, albuterol nebulizer p.r.n. Continue methylprednisolone 60 mg IV push q.8 hours IV Start Levaquin 750 mg IV daily Consult radiologic technologist for evaluation treatment care coordination consult for discussion of possible transition to hospice. The patient's would like more information. Acute on chronic diastolic heart failure Echocardiogram showed normal EF, grade 1 diastolic dysfunction Receive furosemide 20 mg IV push once, continue spironolactone 20 mg daily p.o. Discussed furosemide 20 mg IV push daily per radiologic technologist Follow-up input output Chronic anemia Hemoglobin Close to baseline No obvious bleeding Follow-up CBC Otherwise will continue the remainder the patient's home medications. Subjective Date/time seen: 12/18/23 11:22 Interval history: I saw examined patient today, patient feels better today, patient is alert, oriented, patient has dry cough, dyspnea is improving although ABG showed severe CO2 retention 112.9. Patient is afebrile blood pressure is stable Exam Narrative: GENERAL: Pleasant, in no acute distress. Well-nourished. malnutrition - EYES: EOMI. Anicteric. - HENT: Moist mucous membranes. - LUNGS: Decreased air entry bilateral, - CARDIOVASCULAR: Regular rate and rhythm. No murmur. No JVD. - ABDOMEN: Soft, non-tender and non-distended. No palpable masses. - EXTREMITIES: No edema. Peripheral pulses 2+. Non-tender. - NEUROLOGIC: No focal neurological deficits. CN II-XII grossly intact. - PSYCHIATRIC: Awake, Alert and oriented x 3. Appropriate mood and affect. - SKIN: No rashes or lesions. Warm. - LYMPH: No cervical lymphadenopathy. Objective Data Vital Signs Vital Signs: Vital Signs - 24 hr 12/17/23 11:26 12/17/23 12:00 12/17/23 12:00 Temperature 98.6 F Pulse Ra
[2023-12-18 11:40] LABS: Basophils Percent Auto 0.1 % (0.2-1.2); Hematocrit 32.8 % (37.0-47.0); Hemoglobin 9.6 g/dL (12.0-15.0); Immature Granulocyte Absolute 0.04 K/mm3 (0.00-0.031); Immature Granulocyte Percent A 0.4 % (0-0.5); Lymphocytes Absolute Auto 0.38 K/mm3 (0.9-3.2); Lymphocytes Percent Auto 3.3 % (18.3-44.2); Mean Corpuscular HGB Conc 29.3 g/dl (32-36); Mean Corpuscular Hemoglobin 30.7 pg (26-34); Mean Corpuscular Volume 104.8 fl (80-100); Mean Platelet Volume 10.7 fl (7.4-10.4); Monocytes Absolute Auto 1.4 K/mm3 (0.1-0.6); Monocytes Percent Auto 12.3 % (2.6-8.5); Neutrophils Absolute Auto 9.6 K/mm3 (1.3-6.7); Neutrophils Percent Auto 83.9 % (45.5-73.1); Platelet Count Result 173 k/mm3 (150-375); Red Blood Count 3.13 M/mm3 (4.2-5.4); Red Cell Distribution Width 12.4 % (11.5-14.5); White Blood Count 11.4 K/mm3 (4.5-10.0)
[2023-12-18 12:03] LABS: Anisocytosis 1+; Hypochromasia 1+; Macrocytosis 1+ (NORMAL); Platelet Estimate Adequate (Adequate)
[2023-12-18 12:04] LABS: Schistocytes None Seen
[2023-12-18 12:08] LABS: Blood Urea Nitrogen 29 mg/dL (7-17); Calcium 9.4 mg/dL (8.4-10.2); Carbon Dioxide > 40 mmol/L (22-30); Chloride 77 mmol/L (98-107); Estimated CRCL calculation 35 ml/min; Estimated Glomerular Filt Rate > 60; Glucose 96 mg/dL (65-110); Potassium 4.9 mmol/L (3.4-5.0); Sodium 137 mmol/L (137-145)
[2023-12-19] VITALS (16 sets, daily range): BP systolic 104–112; BP diastolic 45–71; PULSE 67–80; RESP 18–24; TEMP 36.4; O2SAT 90–100
[2023-12-19] MEDS: IPRATROPIUM 0.5 MG/ALBUTEROL SULFATE 2.5 MG AMPUL.NEB 3 ML INHALATION ×3 (02:25→13:29)
[2023-12-19 04:17] LABS: Basophils Percent Auto 0.2 % (0.2-1.2); Eosinophils Percent Auto 0.1 % (0-4.4); Hemoglobin 9.8 g/dL (12.0-15.0); Immature Granulocyte Absolute 0.05 K/mm3 (0.00-0.031); Immature Granulocyte Percent A 0.4 % (0-0.5); Lymphocytes Absolute Auto 1.07 K/mm3 (0.9-3.2); Lymphocytes Percent Auto 8.6 % (18.3-44.2); Mean Corpuscular HGB Conc 29.7 g/dl (32-36); Mean Corpuscular Hemoglobin 30.9 pg (26-34); Mean Corpuscular Volume 104.1 fl (80-100); Mean Platelet Volume 10.9 fl (7.4-10.4); Monocytes Absolute Auto 1.4 K/mm3 (0.1-0.6); Monocytes Percent Auto 11.5 % (2.6-8.5); Neutrophils Absolute Auto 9.8 K/mm3 (1.3-6.7); Neutrophils Percent Auto 79.2 % (45.5-73.1); Platelet Count Result 179 k/mm3 (150-375); Red Blood Count 3.17 M/mm3 (4.2-5.4); Red Cell Distribution Width 12.3 % (11.5-14.5); White Blood Count 12.4 K/mm3 (4.5-10.0)
[2023-12-19 04:29] LABS: Blood Urea Nitrogen 33 mg/dL (7-17); Calcium 9.3 mg/dL (8.4-10.2); Carbon Dioxide > 40 mmol/L (22-30); Chloride 80 mmol/L (98-107); Estimated CRCL calculation 45 ml/min; Estimated Glomerular Filt Rate > 60; Glucose 96 mg/dL (65-110); Potassium 4.2 mmol/L (3.4-5.0); Sodium 137 mmol/L (137-145)
[2023-12-19 04:40] LABS: Hypochromasia 1+; Platelet Estimate Adequate (Adequate); Schistocytes None Seen; Stomatocytes 2+
[2023-12-19] MEDS: dilTIAZem HCL 60 MG TABLET PO (05:30)
[2023-12-19] MEDS: UMECLIDINIUM BROMIDE 62.5 MCG ELLIPTA 1 PUFF INHALATION (07:37)
--- NOTE | 2023-12-19 07:44 | PM.IMPN ---
Progress Note: A&P Assessment and Plan (1) Acute on chronic respiratory failure with hypoxia and hypercapnia: Code(s): J96.21 - Acute and chronic respiratory failure with hypoxia; J96.22 - Acute and chronic respiratory failure with hypercapnia Status: Acute (2) End stage COPD: Code(s): J44.9 - Chronic obstructive pulmonary disease, unspecified Status: Acute (3) Diastolic heart failure: Qualifiers: Heart failure chronicity: acute on chronic Qualified Code(s): I50.33 - Acute on chronic diastolic (congestive) heart failure Code(s): I50.30 - Unspecified diastolic (congestive) heart failure Status: Acute (4) Essential hypertension: Code(s): I10 - Essential (primary) hypertension Status: Acute Plan Patient is a 73-year-old female who presents emergency department with chief complaint of increasing weakness and similar episodes to when she has hypercapnic respiratory failure patient has prior history of COPD is on trilogy machine and now at a point where she has to be on her trilogy almost 247 family has to help her get to the bathroom while even on the trilogy machine of the patient's had episodes were she is becoming unresponsive at home and her saturations dropped down of whenever she is off of 6 L. The patient is in palliative care and family is interested in exploring hospice the patient only wants noninvasive positive pressure ventilation and does not want intubation or CPR Acute on chronic respiratory failure with hypoxemia and hypocalcemia ABG showed CO2 retention pCO2 82.8, compensated respiratory acidosis, pH 7.45 Possible due to acute on chronic diastolic heart failure and possible COPD exacerbation Elevated BNP Chest x-ray suggests pulmonary congestion and possible atypical pneumonia Patient is on AVAPS Continue nebulizer and home does, methylprednisone IV Repeat ABG 12/17 showed severe CO2 retention 112.9, but patient is mentally clear oriented times x3 Consulted transformation architect, management per pulmonology COPD exacerbation X-ray showed severe emphysema, increased interstitial pattern, also suggesting pneumonia Continue DuoNeb q.6 hours scheduled, albuterol nebulizer p.r.n. Continue methylprednisolone 60 mg IV push q.8 hours IV Start Levaquin 750 mg IV daily Consult transformation architect for evaluation treatment care coordination consult for discussion of possible transition to hospice. The patient's would like more information. Acute on chronic diastolic heart failure Echocardiogram showed normal EF, grade 1 diastolic dysfunction Receive furosemide 20 mg IV push once, continue spironolactone 20 mg daily p.o. Discussed furosemide 20 mg IV push daily per transformation architect Follow-up input output Euvolemia Chronic anemia Hemoglobin Close to baseline No obvious bleeding Follow-up CBC, hemoglobin stable the patient prognosis is very poor, patient is at end-stage of life. Aggressive medical treatment a futile. Patient family requests transfer to hospice care Subjective Date/time seen: 12/19/23 07:44 Interval history: Patient is afebrile, blood pressure stable, labs reviewed. Patient does not have obvious distress at rest, still has a cough, patient is on BiPAP Exam Narrative: GENERAL: Pleasant, in no acute distress. Well-nourished. malnutrition - EYES: EOMI. Anicteric. - HENT: Moist mucous membranes. - LUNGS: Decreased air entry bilateral, - CARDIOVASCULAR: Regular rate and rhythm. No murmur. No JVD. - ABDOMEN: Soft, non-tender and non-distended. No palpable masses. - EXTREMITIES: No edema. Peripheral pulses 2+. Non-tender. - NEUROLOGIC: No focal neurological deficits. CN II-XII grossly intact. - PSYCHIATRIC: Awake, Alert and oriented x 3. Appropriate mood and affect. - SKIN: No rashes or lesions. Warm. - LYMPH: No cervical lymphadenopathy. Objective Data Vital Signs Vital Signs: Vital Signs - 24 hr 12/18/23 08:00 12/18/23 08:30 12/17
[2023-12-19] MEDS: ACETAMINOPHEN 325 MG TABLET 650 MG PO (08:43)
[2023-12-19] MEDS: ESCITALOPRAM OXALATE 10 MG TABLET PO (08:44)
--- NOTE | 2023-12-19 10:59 | PM.DS ---
DS: Admitting Diagnosis Discharge Date 12/18 Admitting Diagnosis (1) Acute on chronic respiratory failure with hypoxia and hypercapnia: Code(s): J96.21 - Acute and chronic respiratory failure with hypoxia; J96.22 - Acute and chronic respiratory failure with hypercapnia Status: Acute (2) End stage COPD: Code(s): J44.9 - Chronic obstructive pulmonary disease, unspecified Status: Acute (3) Diastolic heart failure: Qualifiers: Heart failure chronicity: acute on chronic Qualified Code(s): I50.33 - Acute on chronic diastolic (congestive) heart failure Code(s): I50.30 - Unspecified diastolic (congestive) heart failure Status: Acute (4) Essential hypertension: Code(s): I10 - Essential (primary) hypertension Status: Acute DS: Discharge Diagnosis Discharge Diagnosis (1) Acute on chronic respiratory failure with hypoxia and hypercapnia: Code(s): J96.21 - Acute and chronic respiratory failure with hypoxia; J96.22 - Acute and chronic respiratory failure with hypercapnia Status: Acute (2) End stage COPD: Code(s): J44.9 - Chronic obstructive pulmonary disease, unspecified Status: Acute (3) Diastolic heart failure: Qualifiers: Heart failure chronicity: acute on chronic Qualified Code(s): I50.33 - Acute on chronic diastolic (congestive) heart failure Code(s): I50.30 - Unspecified diastolic (congestive) heart failure Status: Acute (4) Essential hypertension: Code(s): I10 - Essential (primary) hypertension Status: Acute DS: Summary Hospital Course Hospital Course: Patient is a 73-year-old female who presents emergency department with chief complaint of increasing weakness and similar episodes to when she has hypercapnic respiratory failure patient has prior history of COPD is on trilogy machine and now at a point where she has to be on her trilogy almost 247 family has to help her get to the bathroom while even on the trilogy machine of the patient's had episodes were she is becoming unresponsive at home and her saturations dropped down of whenever she is off of 6 L. The patient is in palliative care and family is interested in exploring hospice the patient only wants noninvasive positive pressure ventilation and does not want intubation or CPR Acute on chronic respiratory failure with hypoxemia and hypocalcemia ABG showed CO2 retention pCO2 82.8, compensated respiratory acidosis, pH 7.45 Possible due to acute on chronic diastolic heart failure and possible COPD exacerbation Elevated BNP Chest x-ray suggests pulmonary congestion and possible atypical pneumonia Patient is on AVAPS Continue nebulizer and home does, methylprednisone IV Repeat ABG 12/17 showed severe CO2 retention 112.9, but patient is mentally clear oriented times x3 Consulted seasonal delivery driver, management per pulmonology COPD exacerbation X-ray showed severe emphysema, increased interstitial pattern, also suggesting pneumonia Continue DuoNeb q.6 hours scheduled, albuterol nebulizer p.r.n. Continue methylprednisolone 60 mg IV push q.8 hours IV Start Levaquin 750 mg IV daily Consult seasonal delivery driver for evaluation treatment care coordination consult for discussion of possible transition to hospice. The patient's would like more information. Acute on chronic diastolic heart failure Echocardiogram showed normal EF, grade 1 diastolic dysfunction Receive furosemide 20 mg IV push once, continue spironolactone 20 mg daily p.o. Discussed furosemide 20 mg IV push daily per seasonal delivery driver Follow-up input output Euvolemia Chronic anemia Hemoglobin Close to baseline No obvious bleeding Follow-up CBC, hemoglobin stable the patient prognosis is very poor, patient is at end-stage of life. Aggressive medical treatment a futile. Patient family requests transfer to hospice care Time Spent with Patient Time attestation: Total time spent providing and/o
--- NOTE | 2024-01-24 17:27 | PM.DS ---
DS: Admitting Diagnosis Discharge Date 12/19/23 DS: Summary Time Spent with Patient Time attestation: Total time spent providing and/or coordinating discharge services: Discharge Plan Discharge Attending physician on discharge: Josh Ortega Consulting providers: Arya Tolentino; Jose J Montelongo; Theodore Luna Discharging Clinician: Josh Ortega Anticipated Discharge Date/Time: 12/19/23 10:59 Patient Disposition: Hospice - Home Activity: as tolerated Diet: as tolerated Patient Instructions: Heart Failure (DC), COPD (Chronic Obstructive Pulmonary Disease) (DC), Chronic Hypertension (DC) Stand Alone Forms: General Discharge Information Discharge Medications: Continued Spiriva Respimat 2.5 mcg/actuation mist 2 inhalation INHALATION QAM furosemide 20 mg tablet 20 mg PO QAM escitalopram oxalate 10 mg tablet 10 mg PO DAILY spironolactone 25 mg tablet 25 mg PO DAILY alendronate 70 mg tablet 70 mg PO WEEKLY Rx Instructions: Wednesdays diltiazem HCl 60 mg tablet 60 mg PO TID arformoterol 15 mcg/2 mL solution for nebulization See Rx Instructions .ROUTE .COMPLEX Qty: 120 6RF Dose Instruction: USE 2 ML VIA NEBULIZER TWICE DAILY Rx Instructions: USE 2 ML VIA NEBULIZER TWICE DAILY Date of admission: 12/17/23 07:46 Primary Care Provider: ChristianneAlyson Admitting Provider: Yoana Rodriguez Attending physician on admission: Josh Ortega Condition: Stable Hospitalist MIPS If Yes, Heart Failure (Qualifier) Patient was prescribed or already taking bisoprolol, carvedilol, or sustained release metoprolol succinate: Yes
== END 2023-12-19 14:33 | disposition hospice, home (50) | DRG 189 ==
LOC: ANHED 23:51 → ANHIMU 12-17 02:07
PROVIDERS: Internal Medicine Pulmonary Disease; Admitting Provider Internal Medicine; Emergency Provider Emergency Medicine; PCP Internal Medicine; Visit Provider Hospitalist
DX: J96.21 Acute and chronic respiratory failure with hypoxia (principal); I50.33 Acute on chronic diastolic (congestive) heart failure; J18.9 Pneumonia, unspecified organism; E43 Unspecified severe protein-calorie malnutrition; Z68.1 Body mass index [BMI] 19.9 or less, adult; J43.9 Emphysema, unspecified; I11.0 Hypertensive heart disease with heart failure; J96.22 Acute and chronic respiratory failure with hypercapnia; Z20.822 Contact with and (suspected) exposure to COVID-19; M81.0 Age-related osteoporosis without current pathological fracture; R91.8 Other nonspecific abnormal finding of lung field; F41.9 Anxiety disorder, unspecified; D53.9 Nutritional anemia, unspecified; Z87.891 Personal history of nicotine dependence
CPT/HCPCS: 36415; 36600; 71045; 80048; 80053; 81001; 82805; 83605; 83880; 84484; 85025; 85610; 85730; 87637; 93005; 94002; 94003; 94640; 96374; 96375; 99285; A9270; G0378; J1940; J2919